=== PATIENT | male | born 1965 | race Hispanic/Latino ===

== ENCOUNTER 2019-02-27 22:05 | Inpatient (IN) | payer SELFPAY ==
--- NOTE | 2019-02-28 00:13 | XRay Report ---
PROCEDURE: XR CHEST ROUTINE 2V TECHNIQUE: PA and lateral chest radiographs were obtained. HISTORY: Chest Pain COMPARISONS: None. FINDINGS: Heart: Normal. Mediastinum/Vessels: Normal. Lungs/Pleural space: Normal. Bony thorax: No acute osseous abnormality. IMPRESSION: Normal examination. This document is electronically signed by Michael Verduzco MD., February 28 2019 12:11:21 AM ET
[2019-02-28 00:33] LABS: Basophils % (Auto) 0.4 % (0.0-1.8); Eosinophils # (Auto) 0.1 K/mm3 (0.0-0.4); Eosinophils % (Auto) 1.8 % (0.0-4.3); Hematocrit 34.5 % (35.5-45.6); Lymphocytes # (Auto) 1.5 K/mm3 (1.2-5.4); Lymphocytes % (Auto) 20.7 % (13.4-35.0); Mean Corpuscular HGB Conc 35 % (32-34); Mean Corpuscular Volume 92 fl (84-94); Monocytes # (Auto) 0.6 K/mm3 (0.0-0.8); Monocytes % (Auto) 8.3 % (0.0-7.3); Platelet Count 244 K/mm3 (140-440); Red Blood Count 3.74 M/mm3 (3.65-5.03); Red Cell Distribution Width 14.2 % (13.2-15.2)
[2019-02-28 00:47] LABS: BUN/Creatinine Ratio 15; Blood Urea Nitrogen 17 mg/dL (9-20); Calcium 8.6 mg/dL (8.4-10.2); Hemolysis Index 1
[2019-02-28] MEDS ORDERED: VANCOMYCIN PHARMACY TO DOSE IV SCH (06:37)
[2019-02-28] MEDS ORDERED: ZOSYN/NS 3.375GM/50ML 3.375 GM/50 ML BAG IV ONE (06:37)
[2019-02-28] MEDS ORDERED: ZOFRAN IV ONE (06:38)
[2019-02-28] MEDS ORDERED: MORPHINE IV ONE (06:38)
[2019-02-28] MEDS ORDERED: NACL 0.9% 1000 ML 1,000 ML IV ONE (06:44)
--- NOTE | 2019-02-28 07:29 | XRay Report ---
PROCEDURE: XR FOOT 2V LT TECHNIQUE: Left foot radiographs, AP and lateral views. HISTORY: ampullated toe swelling foot COMPARISONS: None . FINDINGS: There has been amputation of the second digit. There are no fractures or malalignments. There is mild soft tissue swelling of the forefoot. There is no subcutaneous air or foreign body. IMPRESSION: There has been amputation of the second digit. There are no fractures or malalignments. There is mild soft tissue swelling of the forefoot. This document is electronically signed by Michael Verduzco MD., February 28 2019 07:27:06 AM ET
[2019-02-28 07:36] LABS: INR 0.81 (0.87-1.13)
[2019-02-28 07:45] LABS: Alanine Aminotransferase 20 units/L (7-56); Albumin 3.8 g/dL (3.9-5)
[2019-02-28] MEDS ORDERED: VANCOMYCIN 1,500 MG in NACL 0.9% 500 ML 500 ML IV ONE (08:00)
[2019-02-28 08:01] LABS: Creatine Kinase MB 3.4 ng/mL (0.0-4.0)
[2019-02-28 08:12] LABS: Bilirubin,Direct < 0.2 mg/dL (0-0.2)
--- NOTE | 2019-02-28 09:35 | Emergency Department Report ---
ED General Adult HPI - General Chief complaint: Extremity Injury, Lower Stated complaint: LEFT FOOT SWELLING/CHEST PAIN/SOB Time Seen by Provider: 02/28/19 06:24 Source: patient, family Mode of arrival: Ambulatory Limitations: No Limitations - History of Present Illness Initial comments: This is a 53 year old man who states that he had a toe amputation in [place] less than 2 weeks ago. He states it was due to a gangrenous toe. He is here including [facility] staying with his sister. He states that he was given a short course of pain medicine and that he has run out of this. He states he has a diabetic neuropathy but on top of this his foot is now swollen and it is painful. He does not report fever or chills. Apparently he did make some mention of chest pain in triage but did not suspect that to me. He said chest pain was initially "exterior to my sternum" and then "it went deep like someone sitting on my chest" and then later it became a "trickle" and an area consistent with the left upper quadrant of his abdomen. States the pain is no longer present. It was not pleuritic. It was not associated with shortness of breath sweating or nausea. In general the patient is a bit hypomanic with pressurized speech. He is a poor historian. He tells me that he should "have 8 stents", 7 in both legs and one in his heart. When asked if he has had a heart catheterization in the past he does not seem to comprehend this. Apparently he has had a CT of his chest in the past at another facility. He has not been here before. He is a very poor historian. He states that he has had a [place] catheter in the past for intravenous antibiotic for a right index finger fracture. He is an insulin-dependent diabetic. He is not currently taking antibiotics. -: Gradual, days(s) Location: chest, left (foot) Radiation: non-radiation Quality: aching (see initial comments for description) Consistency: constant (foot pain is more constant), now resolved (chest pain is now resolved) Improves with: none Worsens with: none Associated Symptoms: denies other symptoms Treatments Prior to Arrival: none - Related Data Allergies Allergy/AdvReac Type Severity Reaction Status Date / Time No Known Allergies Allergy Verified 02/27/19 23:33 ED Review of Systems ROS: Stated complaint: LEFT FOOT SWELLING/CHEST PAIN/SOB Other details as noted in HPI Constitutional: denies: chills, fever Eyes: denies: eye pain, eye discharge, vision change ENT: denies: ear pain, throat pain Respiratory: denies: cough, shortness of breath, wheezing Cardiovascular: chest pain. denies: palpitations Endocrine: no symptoms reported Gastrointestinal: denies: abdominal pain, nausea, diarrhea Genitourinary: denies: urgency, dysuria Musculoskeletal: as per HPI. denies: back pain, joint swelling, arthralgia Skin: other (foot redness and swelling). denies: rash, lesions Neurological: denies: headache, weakness, paresthesias Psychiatric: denies: anxiety, depression Hematological/Lymphatic: denies: easy bleeding, easy bruising ED Past Medical Hx - Past Medical History Previous Medical History?: Yes Hx Hypertension: Yes Hx Diabetes: Yes Additional medical history: PAD, Pancreatitis, Neuropathy - Surgical History Past Surgical History?: Yes Additional Surgical History: Bilateral Inguinal Repair. - Social History Smoking Status: Current Every Day Smoker Substance Use Type: None ED Physical Exam - General Limitations: Other (possible psychiatric condition) General appearance: alert, in no apparent distress - Head Head exam: Present: atraumatic, normocephalic - Eye Eye exam: Present: normal appearance. Absent: scleral icterus - ENT ENT exam: Present: mucous membranes moist - Neck Neck exam: Present: normal inspection. Absent: tenderness, meningismus - Respiratory Respiratory exam: Present: normal lung sounds bilaterally. Absent: respiratory distress - Cardiovascular Cardiovascular Exam: Present: regular rate, normal rhythm. Absent: systolic murmur, diastolic murmur, rubs, gallop - GI/Abdominal GI/Abdominal exam: Present: soft, normal bowel sounds. Absent: distended, tenderness, guarding, rebound, rigid - Rectal Rectal exam: Present: deferred - Extremities Exam Extremities exam: Present: other (there is a healing surgical incision of the base of the first webspace at the previous amputation of the second toe side. There is a patch of erythema of the dorsum of the foot. There is 1+ swelling.) - Back Exam Back exam: Present: normal inspection - Neurological Exam Neurological exam: Present: alert, oriented X3, CN II-XII intact. Absent: motor sensory deficit - Psychiatric Psychiatric exam: Present: anxious, manic (hypomanic) - Skin Skin exam: Present: warm, dry, erythema. Absent: rash - Other Other exam information: Patient has poor peripheral pulses of both his legs. Both feet are warm. There is no signs of acute vascular compromise. ED Course Vital Signs 02/27/19 02/27/19 02/28/19 22:16 23:32 08:15 Temperature 98.6 F 98.6 F Pulse Rate 51 L 53 L Respiratory 18 18 Rate Blood Pressure 140/85 140/85 181/109 O2 Sat by Pulse 92 93 Oximetry 02/28/19 08:30 Temperature Pulse Rate Respiratory Rate Blood Pressure 159/96 O2 Sat by Pulse Oximetry - Reevaluation(s) Reevaluation #1: Patient was given analgesia. He was given empiric antibiotic coverage. Ultimately his blood pressure was noted to be 180/90. Nitrates were begun. He will be given aspirin. A d-dimer is yet pending. I am told that the patient's Doppler exam of his left lower extremity was negative. However, I do not have the report yet. I do not know if the arterial study is completed yet either. The patient was found to have a lactic acid level of 2.7. His foot x-ray chest x-ray showed no acute process. He was deemed appropriate for inpatient management with antibiotics, blood pressure management and further evaluation of his chest pain albeit atypical. His history is impossible to ascertain in terms of what his peripheral and possible coronary artery disease and anatomy is at this point. Further evaluation is pending. He has 2 negative troponins so far. 02/28/19 09:56 Reevaluation #2: The patient's heart score is 2. His GLORIA score is 0. 02/28/19 09:59 ED Medical Decision Making - Lab Data Result diagrams: 02/28/19 00:00 02/28/19 00:00 Laboratory Results - last 24 hr 02/28/19 02/28/19 02/28/19 00:00 00:00 02:25 WBC 7.0 RBC 3.74 Hgb 12.0 Hct 34.5 L MCV 92 MCH 32 MCHC 35 H RDW 14.2 Plt Count 244 Lymph % (Auto) 20.7 [place] % (Auto) 8.3 H Eos % (Auto) 1.8 Baso % (Auto) 0.4 Lymph # 1.5 [place] # 0.6 Eos # 0.1 Baso # 0.0 Seg Neutrophils % 68.8 Seg Neutrophils # 4.8 PT INR APTT D-Dimer Sodium 141 Potassium 4.5 Chloride 109.5 H Carbon Dioxide 20 L Anion Gap 16 BUN 17 Creatinine 1.1 Estimated GFR > 60 BUN/Creatinine Ratio 15 Glucose 72 L Lactic Acid Calcium 8.6 Magnesium Total Bilirubin Direct Bilirubin Indirect Bilirubin AST ALT Alkaline Phosphatase Total Creatine Kinase CK-MB (CK-2) CK-MB (CK-2) Rel Index Troponin T < 0.010 < 0.010 C-Reactive Protein Total Protein Albumin Albumin/Globulin Ratio 02/28/19 02/28/19 02/28/19 06:11 06:53 06:53 WBC RBC Hgb Hct MCV MCH MCHC RDW Plt Count Lymph % (Auto) [place] % (Auto) Eos % (Auto) Baso % (Auto) Lymph # [place] # Eos # Baso # Seg Neutrophils % Seg Neutrophils # PT 11.7 L INR 0.81 L APTT 30.0 D-Dimer Sodium Potassium Chloride Carbon Dioxide Anion Gap BUN Creatinine Estimated GFR BUN/Creatinine Ratio Glucose Lactic Acid Calcium Magnesium Total Bilirubin 0.20 Direct Bilirubin < 0.2 Indirect Bilirubin 0.0 AST 18 ALT 20 Alkaline Phosphatase 179 H Total Creatine Kinase CK-MB (CK-2) CK-MB (CK-2) Rel Index Troponin T < 0.010 C-Reactive Protein Total Protein 6.0 L Albumin 3.8 L Albumin/Globulin Ratio 1.7 02/28/19 02/28/19 02/28/19 06:53 06:53 06:53 WBC RBC Hgb Hct MCV MCH MCHC RDW Plt Count Lymph % (Auto) [place] % (Auto) Eos % (Auto) Baso % (Auto) Lymph # [place] # Eos # Baso # Seg Neutrophils % Seg Neutrophils # PT INR APTT D-Dimer Sodium Potassium Chloride Carbon Dioxide Anion Gap BUN Creatinine Estimated GFR BUN/Creatinine Ratio Glucose Lactic Acid 2.70 H* Calcium Magnesium 1.80 Total Bilirubin Direct Bilirubin Indirect Bilirubin AST ALT Alkaline Phosphatase Total Creatine Kinase 50 L CK-MB (CK-2) 3.4 CK-MB (CK-2) Rel Index 6.8 H Troponin T C-Reactive Protein 0.30 Total Protein Albumin Albumin/Globulin Ratio 02/28/19 06:53 WBC RBC Hgb Hct MCV MCH MCHC RDW Plt Count Lymph % (Auto) [place] % (Auto) Eos % (Auto) Baso % (Auto) Lymph # [place] # Eos # Baso # Seg Neutrophils % Seg Neutrophils # PT INR APTT D-Dimer 145.80 Sodium Potassium Chloride Carbon Dioxide Anion Gap BUN Creatinine Estimated GFR BUN/Creatinine Ratio Glucose Lactic Acid Calcium Magnesium Total Bilirubin Direct Bilirubin Indirect Bilirubin AST ALT Alkaline Phosphatase Total Creatine Kinase CK-MB (CK-2) CK-MB (CK-2) Rel Index Troponin T C-Reactive Protein Total Protein Albumin Albumin/Globulin Ratio - EKG Data -: EKG Interpreted by Me EKG shows normal: sinus rhythm Rate: normal - EKG Data Interpretation: no acute changes, LVH (consider LVH) - Radiology Data Radiology results: report reviewed (no acute process on foot or chest x-ray, Doppler reported to me as negative. Awaiting report.) Critical care attestation.: If time is entered above; I have spent that time in minutes in the direct care of this critically ill patient, excluding procedure time. ED Disposition Clinical Impression: Cellulitis of left foot, Elevated lactic acid level, Insulin dependent diabetes mellitus, Peripheral vascular disease, Uncontrolled hypertension Chest pain Qualifiers: Chest pain type: unspecified Qualified Code(s): R07.9 - Chest pain, unspecified Disposition: OP ADMIT IP TO THIS HOSP Is pt being admited?: Yes Does the pt Need Aspirin: Yes Condition: Stable Instructions: Diabetes Mellitus Type 2 in Adults (ED), Chest Pain (ED), Hypertension (ED) Referrals: PRIMARY CARE, [Primary Care Provider] - 3-5 Days Time of Disposition: 10:02
[2019-02-28] MEDS ORDERED: ASPIRIN PO ONE (10:02)
[2019-02-28] MEDS ORDERED: NITRO-BID 2% TP ONE (10:03)
--- NOTE | 2019-02-28 10:47 | Vascular Lab Report ---
PROCEDURE: VL VENOUS DUPLEX LE LT TECHNIQUE: Grayscale, color flow and spectral waveform images were obtained of left lower extremity. HISTORY: POST TOE AMPUTATION SWELLING PAIN FOOT LEG COMPARISON: None FINDINGS: There is no deep venous thrombosis seen in the left lower extremity. Flow is demonstrated by color flow and spectral waveform imaging. There is appropriate wall compression and augmentation. There is also no evidence for superficial venous thrombus. IMPRESSION: There is no evidence for DVT in left lower extremity. This document is electronically signed by Martha Aguirre MD., February 28 2019 10:46:05 AM ET
--- NOTE | 2019-02-28 11:05 | Vascular Lab Report ---
PROCEDURE: VL ARTERIAL DUPLEX LE LT TECHNIQUE: Arterial duplex Doppler ultrasound of left lower extremity. Grayscale, color flow and spe ctral waveform images were obtained. HISTORY: PVD foot and leg pain COMPARISON: None FINDINGS: There is phasic flow in the left lower extremity from common femoral artery to popliteal artery. Ther e is monophasic flow in the proximal aspect of left posterior tibial artery. Mid to distal posterior tibial artery is occluded. There is biphasic flow seen in left anterior tibial artery and dorsalis pe dis artery. IMPRESSION: No flow seen in the mid to distal left posterior tibial artery, likely occluded. This document is electronically signed by Martha Aguirre MD., February 28 2019 11:03:27 AM ET
[2019-02-28] MEDS ORDERED: ZOFRAN IV PRN (11:08)
[2019-02-28] MEDS ORDERED: PROVENTIL IH PRN (11:08)
[2019-02-28] MEDS ORDERED: SODIUM CHLORIDE FLUSH SYRINGE 10 ML IV PRN (11:08)
[2019-02-28] MEDS ORDERED: TYLENOL PO PRN (11:08)
--- NOTE | 2019-02-28 11:10 | History and Physical Report ---
History of Present Illness Date of admission: 02/28/19 11:02 Chief complaint: My foot hurts History of present illness: 53 YO Male with HTN, DM Complicated by Neuropathy, Nicotine Dependence, Pancreatitis, PVD S/P Toe amputation, S/P Stent Placement presents to ED for evaluation. Pt states that he has experienced pain in his left foot over the past 3 days with persistent symptoms over the same time frame. Pt also reports chest pain, but opon exam and interview the patient localizes his discomfort to the abdominal region, and denies chest pain at time of exam. Pt states that his foot pain has worsened since he ran out of his pain medication. Pt transported to [facility] ED via private vehicle. Pt seen and evaluated in ED and found to have LLE Cellulitis/Diabetic Foot. Pt denies fever, chills, CP, Palpitations, NVD, Trauma, BRBPR, productive cough, or recent ill contacts. Pt admitted to medical floor,and initiated on IV antibiotic therapy. No prior admissions for review. All listed medication reconciled once entered and corrected by nursing staff. Vascular surgery consulted in ED for PVD. Past History Past Medical History: hypertension Past Surgical History: hernia repair Medications and Allergies Allergies Allergy/AdvReac Type Severity Reaction Status Date / Time No Known Allergies Allergy Verified 02/27/19 23:33 Home Medications Medication Instructions Recorded Confirmed Last Taken Type Aspir-Low 81 mg PO DAILY 02/28/19 02/28/19 Unknown History AtorvaSTATin 40 mg PO HS 02/28/19 02/28/19 Unknown History Humalog Mix 75-25 Vial 50 units SUB-Q BID 02/28/19 02/28/19 Unknown History Lisinopril 20 mg PO DAILY 02/28/19 02/28/19 Unknown History Neurontin 300 mg PO TID 02/28/19 02/28/19 Unknown History OLANzapine (NF) 5 mg PO HS 02/28/19 02/28/19 Unknown History Omeprazole 40 mg PO DAILY 02/28/19 02/28/[address] 10,500 Unit Cap 10,500 unit PO TID 02/28/19 02/28/19 Unknown History amLODIPine 10 mg PO DAILY 02/28/19 02/28/19 Unknown History oxyCODONE /ACETAMINOPHEN 5 - 325 mg PO Q4HR PRN 02/28/19 02/28/19 Unknown History Active Meds: Active Medications Acetaminophen (Tylenol) 650 mg PO Q4H PRN PRN Reason: Pain MILD(1-3)/Fever >100.5/MARTINEZ Albuterol (Proventil) 2.5 mg IH Q4HRT PRN PRN Reason: Shortness Of Breath Famotidine (Pepcid) 20 mg PO BID [facility] Sodium Chloride (Nacl 0.9% 1000 Ml) 1,000 mls @ 125 mls/hr IV ONCE ONE Stop: 02/28/19 14:43 Last Admin: 02/28/19 08:17 Dose: 125 mls/hr Documented by: Vancomycin HCl (Vancomycin/Ns 1 Gm/250 Ml) 1 gm in 250 mls @ 250 mls/hr IV Q12H YAEL Ondansetron HCl (Zofran) 4 mg IV Q8H PRN PRN Reason: Nausea And Vomiting Oxycodone/Acetaminophen (Percocet 5/325) 1 tab PO Q6H PRN PRN Reason: Pain, Moderate (4-6) Sodium Chloride (Sodium Chloride Flush Syringe 10 Ml) 10 ml IV BID YAEL Sodium Chloride (Sodium Chloride Flush Syringe 10 Ml) 10 ml IV PRN PRN PRN Reason: LINE FLUSH Review of Systems Constitutional: no weight loss, no weight gain, no fever, no chills Ears, nose, mouth and throat: no ear pain, no ear discharge, no tinnitis, no decreased hearing, no nose pain, no nasal congestion Cardiovascular: no chest pain, no orthopnea, no palpitations, no rapid/irregular heart beat, no edema, no lightheadedness Respiratory: no cough, no cough with sputum, no excessive sputum, no hemoptysis, no shortness of breath Gastrointestinal: no nausea, no vomiting, no diarrhea, no constipation, no change in bowel habits, no BRBPR Genitourinary Male: no hematuria, no flank pain, no discharge, no urinary frequency, no urinary hesitancy, no nocturia Rectal: no pain, no incontinence, no bleeding Musculoskeletal: no neck stiffness, no shooting arm pain, no arm numbness/tingling Integumentary: no rash, no pruritis, no redness, no sores Neurological: no paralysis, no weakness, no tingling, no seizures, no syncope Psychiatric: no anxiety, no memory loss, no change in sleep habits, no insomnia, no change in appetite Endocrine: no cold intolerance, no heat intolerance, no excessive thirst, no polydipsia, no polyuria Hematologic/Lymphatic: no easy bruising, no easy bleeding, no lymphadenopathy Allergic/Immunologic: no persistent infections Exam - Constitutional Vitals: Temp Pulse Resp BP Pulse Ox 98.6 F 101 H 15 185/98 99 02/27/19 23:32 02/28/19 10:30 02/28/19 10:30 02/28/19 10:30 02/28/19 10:30 General appearance: Present: mild distress - EENT Eyes: Present: PERRL ENT: hearing intact, clear oral mucosa - Neck Neck: Present: supple, normal ROM - Respiratory Respiratory effort: normal Respiratory: bilateral: CTA - Cardiovascular Heart Sounds: Present: S1 & S2. Absent: rub, click - Extremities Extremities: pulses symmetrical, No edema Extremity abnormal: erythema, pulses diminished Peripheral Pulses: within normal limits - Abdominal General gastrointestinal: Present: soft, non-tender, non-distended, normal bowel sounds Male genitourinary: Present: normal - Integumentary Integumentary: Present: clear, warm, dry - Musculoskeletal Musculoskeletal: gait normal, strength equal bilaterally - Psychiatric Psychiatric: intact judgment & insight, no cooperative, agitated - Neurologic Neurologic: CNII-XII intact, moves all extremities, no gait normal Results - Labs CBC & Chem 7: 02/28/19 00:00 02/28/19 00:00 Labs: Abnormal lab results 02/28/19 02/28/19 02/28/19 Range/Units 00:00 00:00 06:53 Hct 34.5 L (35.5-45.6) % MCHC 35 H (32-34) % [place] % (Auto) 8.3 H (0.0-7.3) % PT 11.7 L (12.2-14.9) Sec. INR 0.81 L (0.87-1.13) Chloride 109.5 H (98-107) mmol/L Carbon Dioxide 20 L (22-30) mmol/L Glucose 72 L (75-100) mg/dL Lactic Acid (0.7-2.0) mmol/L Alkaline Phosphatase (35-129) units/L Total Creatine Kinase (55-170) units/L CK-MB (CK-2) Rel Index (0-4) Total Protein (6.3-8.2) g/dL Albumin (3.9-5) g/dL 02/28/19 02/28/19 02/28/19 Range/Units 06:53 06:53 06:53 Hct (35.5-45.6) % MCHC (32-34) % [place] % (Auto) (0.0-7.3) % PT (12.2-14.9) Sec. INR (0.87-1.13) Chloride (98-107) mmol/L Carbon Dioxide (22-30) mmol/L Glucose (75-100) mg/dL Lactic Acid 2.70 H* (0.7-2.0) mmol/L Alkaline Phosphatase 179 H (35-129) units/L Total Creatine Kinase 50 L (55-170) units/L CK-MB (CK-2) Rel Index 6.8 H (0-4) Total Protein 6.0 L (6.3-8.2) g/dL Albumin 3.8 L (3.9-5) g/dL 02/28/19 Range/Units 10:03 Hct (35.5-45.6) % MCHC (32-34) % [place] % (Auto) (0.0-7.3) % PT (12.2-14.9) Sec. INR (0.87-1.13) Chloride (98-107) mmol/L Carbon Dioxide (22-30) mmol/L Glucose (75-100) mg/dL Lactic Acid 2.40 H* (0.7-2.0) mmol/L Alkaline Phosphatase (35-129) units/L Total Creatine Kinase (55-170) units/L CK-MB (CK-2) Rel Index (0-4) Total Protein (6.3-8.2) g/dL Albumin (3.9-5) g/dL Assessment and Plan - Patient Problems (1) Cellulitis of left foot Current Visit: Yes Status: Acute Plan to address problem: Iv antibiotic therapy, would care consulted, Xray foot, blood cultures, CBC, CMP (2) HTN (hypertension) Current Visit: Yes Status: Acute Qualifiers: Hypertension type: essential hypertension Qualified Code(s): I10 - Essential (primary) hypertension Plan to address problem: monitor bp q shift, continue medical management. (3) Diabetes Current Visit: Yes Status: Acute Plan to address problem: ADA diet, insulin, accu check (4) Peripheral vascular disease Current Visit: Yes Status: Acute Plan to address problem: Vascular surgery consulted in ED, supportive care, Pt denies rest pain. (5) DVT prophylaxis Current Visit: Yes Status: Acute Plan to address problem: SCD to BLE while in bed, Prophylactic lovenox.
[2019-02-28] MEDS ORDERED: PERCOCET 5/325 ONE (12:00)
[2019-02-28] MEDS: PERCOCET 5/325 PO PRN ×3 (12:00→23:21)
[2019-02-28] MEDS: HumaLOG SUB-Q SCH ×2 (12:00→18:30)
[2019-02-28] MEDS: VANCOMYCIN/NS 1 GM/250 ML 1 GM/250 ML BAG IV SCH (18:30)
[2019-02-28] MEDS ORDERED: ACETAMINOPHEN PO PRN (21:15)
[2019-02-28] MEDS ORDERED: OXYCODONE PO PRN (21:15)
[2019-02-28] MEDS: PEPCID PO SCH (23:11)
[2019-02-28] MEDS: LOVENOX SUB-Q SCH (23:11)
[2019-02-28] MEDS: SODIUM CHLORIDE FLUSH SYRINGE 10 ML IV SCH (23:24)
[2019-03-01] MEDS: HumaLOG SUB-Q SCH ×4 (00:56→17:37)
[2019-03-01] MEDS: VANCOMYCIN/NS 1 GM/250 ML 1 GM/250 ML BAG IV SCH ×2 (05:27→18:01)
[2019-03-01] MEDS: PERCOCET 5/325 PO PRN ×5 (05:29→23:06)
[2019-03-01 06:05] LABS: Basophils % (Auto) 0.4 % (0.0-1.8); Eosinophils # (Auto) 0.1 K/mm3 (0.0-0.4); Eosinophils % (Auto) 1.1 % (0.0-4.3); Hematocrit 36.1 % (35.5-45.6); Hemoglobin 12.6 gm/dl (11.8-15.2); Lymphocytes # (Auto) 0.7 K/mm3 (1.2-5.4); Lymphocytes % (Auto) 10.8 % (13.4-35.0); Mean Corpuscular HGB Conc 35 % (32-34); Mean Corpuscular Volume 92 fl (84-94); Monocytes # (Auto) 0.5 K/mm3 (0.0-0.8); Monocytes % (Auto) 7.9 % (0.0-7.3); Platelet Count 195 K/mm3 (140-440); Red Blood Count 3.94 M/mm3 (3.65-5.03); Red Cell Distribution Width 13.7 % (13.2-15.2)
[2019-03-01] MEDS ORDERED: APRESOLINE IV PRN ×2 (06:10→09:13)
[2019-03-01] MEDS: D50W (25GM) Syringe IV PRN (06:28)
[2019-03-01 06:34] LABS: Alanine Aminotransferase 20 units/L (7-56); Albumin 3.6 g/dL (3.9-5); BUN/Creatinine Ratio 10; Blood Urea Nitrogen 8 mg/dL (9-20); Calcium 8.6 mg/dL (8.4-10.2); Hemolysis Index 13
[2019-03-01] MEDS: NEURONTIN PO SCH ×3 (08:53→20:42)
[2019-03-01] MEDS: PANCREAZE DR 10,500 UNIT PO SCH ×3 (08:54→18:01)
[2019-03-01] MEDS ORDERED: MORPHINE IV PRN (09:12)
[2019-03-01] MEDS: ZESTRIL PO SCH (09:30)
[2019-03-01] MEDS: HALFPRIN EC PO SCH (09:31)
[2019-03-01] MEDS: PEPCID PO SCH ×2 (09:32→22:52)
[2019-03-01] MEDS: NORVASC PO SCH (09:32)
[2019-03-01] MEDS: PROTONIX PO SCH (09:32)
[2019-03-01 09:53] LABS: Bilirubin,Urine NEG (Negative); Blood,Urine NEG (Negative); Color,Urine Straw (Yellow); Mucus,Urine FEW /HPF; Protein,Urine <15 mg/dL mg/dL (Negative); RBC,Urine < 1.0 /HPF (0.0-6.0); Urobilinogen,Urine < 2.0 mg/dL (<2.0); WBC,Urine < 1.0 /HPF (0.0-6.0)
[2019-03-01 10:05] LABS: Amphetamine Screen,Urine PRESUMPTIVE NEGATIVE; Benzodiazepines Screen,Urine PRESUMPTIVE NEGATIVE; Cannabinoid Screen,Urine PRESUMPTIVE NEGATIVE; Cocaine Screen,Urine PRESUMPTIVE NEGATIVE; Methadone Screen,Urine PRESUMPTIVE NEGATIVE; Opiate Screen,Urine PRESUMPTIVE NEGATIVE
--- NOTE | 2019-03-01 16:24 | Consultation ---
History of Present Illness - Reason for Consult Consult date: 03/01/19 diabetic foot infection Requesting physician: MYRON ADORNO - History of Present Illness 53 y/o male with history of DM with peripheral neuropathy, tobacco use, PVD s/p recent left 2nd toe amputation, s/p Stent placement; admitted on due to 3 day- history of left foot severe pain and edema. He ran out of his pain medication. Reports nausea and vomiting x 3-4. Reports mild abdominal pain diffusely. Denies diarrhea. In the ED, temp 98.6, HR 51, R 19, O2 sat 92%, BP 140/85. WBC 7, Hg 12, Plat 24 4. Creat 1.1. Lactate 2.7. CRP 0.3. UA neg. Blood culture 02/28/2019 no growth today. CXR showed no acute cardiopulmonary process. Left foot XR s/p 2nd toe amputation +forefoot soft tissue edema. Venous US no DVT. Art US no flow mid to distal left posterior tibial artery. Review of Systems: General: no fever, chills, nightsweats, unintentional weight change, or change in appetite Cutaneous: no rash, pruritus Head: no headaches or injury Eyes: no changes in vision, eye pain, double vision Ears: no ear pain, ear discharge, ringing or hearing loss Nose: no nose bleeding, stuffiness Mouth & throat: no bleeding gums, no horseness, no dental problems, or swollen glands Neck: no pain, node enlargement/lumps, tyroid enlargement or tenderness Respiratory: no cough, wheezing, sputum, hemoptysis, pleuritic chest pain Cardiovascular: no chest pain, leg edema, cyanosis, SCHAEFFER, orthopnea Musculoskeletal: +left foot pain and edema Gastrointestinal: no nausea, vomiting, hematemesis, diarrhea, constipation, melena, bright red blood in stools, fecal incontinence, jaundice Genitourinary/Reproductive: no frequent urination, dysuria, hematuria, incontinence Neurogical: no seizures, no headaches, no weakness, no paresthesias, no loss of speech or vision; no memory loss, no vertigo, no tremors, no numbness Psychiatric: stable mood; no excessive anxiety, sadness or moodiness Past History Past Medical History: hypertension Past Surgical History: hernia repair Medications and Allergies Allergies Allergy/AdvReac Type Severity Reaction Status Date / Time No Known Allergies Allergy Verified 02/27/19 23:33 Home Medications Medication Instructions Recorded Confirmed Last Taken Type Aspir-Low 81 mg PO DAILY 02/28/19 02/28/19 Unknown History AtorvaSTATin 40 mg PO HS 02/28/19 02/28/19 Unknown History Humalog Mix 75-25 Vial 50 units SUB-Q BID 02/28/19 02/28/19 Unknown History Lisinopril 20 mg PO DAILY 02/28/19 02/28/19 Unknown History Neurontin 300 mg PO TID 02/28/19 02/28/19 Unknown History OLANzapine (NF) 5 mg PO HS 02/28/19 02/28/19 Unknown History Omeprazole 40 mg PO DAILY 02/28/19 02/28/19 Unknown History Bob Wang 10,500 Unit Cap 10,500 unit PO TID 02/28/19 02/28/19 Unknown History amLODIPine 10 mg PO DAILY 02/28/19 02/28/19 Unknown History oxyCODONE /ACETAMINOPHEN 5 - 325 mg PO Q4HR PRN 02/28/19 02/28/19 Unknown History Active Meds: Active Medications Acetaminophen (Tylenol) 650 mg PO Q4H PRN PRN Reason: Pain MILD(1-3)/Fever >100.5/MARTINEZ Albuterol (Proventil) 2.5 mg IH Q4HRT PRN PRN Reason: Shortness Of Breath Amlodipine Besylate (Norvasc) 10 mg PO DAILY [facility] Last Admin: 03/01/19 09:32 Dose: 10 mg Documented by: Lipase/Protease/Amylase (Bob Wang 10,500 Unit) 1 each PO TIDAC [facility] Last Admin: 03/01/19 14:10 Dose: 1 each Documented by: Aspirin (Halfprin Ec) 81 mg PO DAILY [facility] Last Admin: 03/01/19 09:31 Dose: 81 mg Documented by: Atorvastatin Calcium (Lipitor) 40 mg PO HS [facility] Last Admin: 02/28/19 23:11 Dose: 40 mg Documented by: Dextrose (D50w (25gm) Syringe) 50 ml IV PRN PRN PRN Reason: Hypoglycemia Last Admin: 03/01/19 06:28 Dose: 50 ml Documented by: Enoxaparin Sodium (Lovenox) 40 mg SUB-Q QDAY@2200 [facility] Last Admin: 02/28/19 23:11 Dose: 40 mg Documented by: Famotidine (Pepcid) 20 mg PO BID [facility] Last Admin: 03/01/19 09:32 Dose: 20 mg Documented by: Gabapentin (Neurontin) 300 mg PO TID [facility] Last Admin: 03/01/19 14:10 Dose: 300 mg Documented by: Hydralazine HCl (Apresoline) 10 mg IV Q6H PRN PRN Reason: Hypertension Vancomycin HCl (Vancomycin/Ns 1 Gm/250 Ml) 1 gm in 250 mls @ 250 mls/hr IV Q12H [facility] Last Admin: 03/01/19 05:27 Dose: 250 mls/hr Documented by: Insulin Human Isoph/Insulin Regular (Humulin 70/30) 50 unit SUB-Q BID [facility] Last Admin: 03/01/19 09:34 Dose: 50 unit Documented by: Insulin Human Lispro (Humalog) 0 unit SUB-Q Q6HR [facility]; Protocol Last Admin: 03/01/19 14:05 Dose: Not Given Documented by: Lisinopril (Zestril) 20 mg PO DAILY [facility] Last Admin: 03/01/19 09:30 Dose: 20 mg Documented by: Morphine Sulfate (Morphine) 2 mg IV Q4H PRN PRN Reason: Pain, Moderate (4-6) Olanzapine (Zyprexa) 5 mg PO HS [facility] Last Admin: 02/28/19 23:23 Dose: 5 mg Documented by: Ondansetron HCl (Zofran) 4 mg IV Q8H PRN PRN Reason: Nausea And Vomiting Oxycodone/Acetaminophen (Percocet 5/325) 1 tab PO Q4H PRN PRN Reason: Pain, (7-10) Last Admin: 03/01/19 14:13 Dose: 1 tab Documented by: Pantoprazole Sodium (Protonix) 40 mg PO DAILY [facility] Last Admin: 03/01/19 09:32 Dose: 40 mg Documented by: Sodium Chloride (Sodium Chloride Flush Syringe 10 Ml) 10 ml IV BID [facility] Last Admin: 02/28/19 23:24 Dose: 10 ml Documented by: Sodium Chloride (Sodium Chloride Flush Syringe 10 Ml) 10 ml IV PRN PRN PRN Reason: LINE FLUSH Physical Examination - Physical Exam Narrative exam: General appearance: Alert in NAD, conversant Eyes: anicteric sclerae, moist conjunctivae; no lid-lag; PERRLA HENT: Atraumatic; oropharynx clear with moist mucous membranes and no mucosal ulcerations/no oral thrush; normal hard and soft palate. Normal external ears. Neck: Trachea midline; supple, no thyromegaly or lymphadenopathy Lungs: CTA, with normal respiratory effort and no intercostal retractions CV: RRR, no murmurs Abdomen: Soft, non-tender; no masses or hepatosplenomegaly Extremities: Left 2nd toe amputated wound with sutures no edema, no erythema or drainage. +mild foot edema Skin: Normal temperature, turgor and texture; no rash, ulcers or subcutaneous nodules Psych: Appropriate affect, alert and oriented to person, place and time. Neuro: alert and oriented x 3. Moving all extermities - Constitutional Vitals: Vital Signs Temp Pulse Resp BP Pulse Ox 98.3 F 98 H 20 155/101 98 03/01/19 11:52 03/01/19 11:52 03/01/19 11:52 03/01/19 11:52 03/01/19 11:52 Temperature -Last 24 Hours Temperature 98.3 F Temperature 99.5 F Temperature 97.8 F Temperature 98.0 F Temperature 98.1 F Results - Labs CBC & Chem 7: 03/01/19 05:23 03/01/19 05:23 Labs: Abnormal lab results 02/28/19 02/28/19 03/01/19 Range/Units 16:34 21:58 05:23 MCHC 35 H (32-34) % Lymph % (Auto) 10.8 L (13.4-35.0) % [place] % (Auto) 7.9 H (0.0-7.3) % Lymph # 0.7 L (1.2-5.4) K/mm3 Seg Neutrophils % 79.8 H (40.0-70.0) % BUN (9-20) mg/dL Glucose (75-100) mg/dL POC Glucose 222 H 162 H (70-105) Alkaline Phosphatase (35-129) units/L Total Protein (6.3-8.2) g/dL Albumin (3.9-5) g/dL 03/01/19 03/01/19 03/01/19 Range/Units 05:23 06:25 07:18 MCHC (32-34) % Lymph % (Auto) (13.4-35.0) % [place] % (Auto) (0.0-7.3) % Lymph # (1.2-5.4) K/mm3 Seg Neutrophils % (40.0-70.0) % BUN 8 L (9-20) mg/dL Glucose 46 L (75-100) mg/dL POC Glucose < 40 L 125 H (70-105) Alkaline Phosphatase 163 H (35-129) units/L Total Protein 5.7 L (6.3-8.2) g/dL Albumin 3.6 L (3.9-5) g/dL 03/01/19 Range/Units 11:56 MCHC (32-34) % Lymph % (Auto) (13.4-35.0) % [place] % (Auto) (0.0-7.3) % Lymph # (1.2-5.4) K/mm3 Seg Neutrophils % (40.0-70.0) % BUN (9-20) mg/dL Glucose (75-100) mg/dL POC Glucose 51 L (70-105) Alkaline Phosphatase (35-129) units/L Total Protein (6.3-8.2) g/dL Albumin (3.9-5) g/dL Assessment and Plan Cultures: Blood culture 02/28/19 no growth today Assessment: 53 y/o male with history of DM with peripheral neuropathy, tobacco use, PVD s/p recent left 2nd toe amputation, s/p Stent placemen 2weeks before admission; admitted on 02/27/19 due to 3 day-history of left foot severe pain and edema: - Elevated lactate: ?likely from limb ischemia? v/s less likely mild left foot cellulitis. Left foot XR s/p 2nd toe amputation +forefoot soft tissue edema. Venous US no DVT. Art US no flow mid to distal left posterior tibial artery. CRP low. - PVD s/p recent left 2nd toe amputation, s/p Stent placement Recommendations: - follow-up blood cultures - continue vancomycin will stop soon- no evidence of deep soft tissue infection - needs further revascularization per vascular - check MRSA PCR Will follow. Rebecca Garcia MD Infectious Diseases [employer] [facility] M [phone] O [phone]
--- NOTE | 2019-03-01 16:56 | Progress Note ---
Assessment and Plan Assessment and plan: 53 YO Male with HTN, DM Complicated by Neuropathy, Nicotine Dependence, Pancreatitis, PVD S/P Toe amputation, S/P Stent Placement presents to ED for evaluation. Pt states that he has experienced pain in his left foot over the past 3 days with persistent symptoms over the same time frame. Pt also reports chest pain, but opon exam and interview the patient localizes his discomfort to the abdominal region, and denies chest pain at time of exam. Pt states that his foot pain has worsened since he ran out of his pain medication. Pt transported to [facility] ED via private vehicle. Pt seen and evaluated in ED and found to have LLE Cellulitis/Diabetic Foot. Pt denies fever, chills, CP, Palpitations, NVD, Trauma , BRBPR, productive cough, or recent ill contacts. Pt admitted to medical floor,and initiated on IV antibiotic therapy. No prior admissions for review. All listed medication reconciled once entered and corrected by nursing staff. Vascular surgery consulted in ED for PVD. Left foot xray: IMPRESSION: There has been amputation of the second digit. There are no fractures or malalignments. There is mild soft tissue swelling of the forefoot. CXR: IMPRESSION: Normal examination. Katelyn doppler left lower ext: IMPRESSION: There is no evidence for DVT in left lower extremity. Sepsis Left foot Cellulitis PVD Diabetes Mellitus with poor glycemic control Hypoglycemia Hypertensive urgency Nicotine dependance s/p Left second toe amputation Plan Continue supportive care Antibiotics per ID IR/Vascular consult pending Continue pain control When necessary BP control. This could be likely secondary to pain and will improve with adequate pain control DVT and GI prophylaxis Level of care discussed with the patient's detail. History Interval history: Patient seen and examined this morning nursing staff reports patient with e levated blood pressure still complains of pain of her lower extremity. Denies any nausea vomiting or diarrhea. Denies any fever. Hospitalist Physical - Physical exam Narrative exam: VITAL SIGNS: Reviewed. GENERAL: The patient appeared well nourished and normally developed, otherwise in mild distress secondary to pain Vital signs as documented. HEAD: No signs of head trauma. EYES: Pupils are equal. Extraocular motions intact. EARS: Hearing grossly intact. MOUTH: Oropharynx is normal. NECK: No adenopathy, no JVD. CHEST: Chest with clear breath sounds bilaterally. No wheezes, rales, or rhonchi. CARDIAC: Regular rate and rhythm. S1 and S2, without murmurs, gallops, or rubs. VASCULAR: Foods with +1 Edema. Peripheral pulses normal and equal in all extremities. ABDOMEN: Soft, non tender and non distended. No rebound or guarding, and no masses palpated. Bowel Sounds normal. MUSCULOSKELETAL: Good range of motion of all major joints. Extremities without clubbing, mild stenosis noted around recent surgical sites. +1 pitting edema on the fluids. NEUROLOGIC EXAM: Alert and oriented x 3 No focal sensory or strength deficits. Speech normal. Follows commands. PSYCHIATRIC: Mood normal. SKIN: Second left toe amputation with erythema surrounded the area. No purulent drainage noted. - Constitutional Vitals: Temp Pulse Resp BP Pulse Ox 98.3 F 98 H 20 155/101 98 03/01/19 11:52 03/01/19 11:52 03/01/19 11:52 03/01/19 11:52 03/01/19 11:52 General appearance: Present: mild distress Results - Labs CBC & Chem 7: 03/01/19 05:23 03/01/19 05:23 Labs: Laboratory Last Values WBC 6.7 K/mm3 (4.5-11.0) 03/01/19 05:23 RBC 3.94 M/mm3 (3.65-5.03) 03/01/19 05:23 Hgb 12.6 gm/dl (11.8-15.2) 03/01/19 05:23 Hct 36.1 % (35.5-45.6) 03/01/19 05:23 MCV 92 fl (84-94) 03/01/19 05:23 MCH 32 pg (28-32) 03/01/19 05:23 MCHC 35 % (32-34) H 03/01/19 05:23 RDW 13.7 % (13.2-15.2) 03/01/19 05:23 Plt Count 195 K/mm3 (140-440) 03/01/19 05:23 Lymph % (Auto) 10.8 % (13.4-35.0) L 03/01/19 05:23 [place] % (Auto) 7.9 % (0.0-7.3) H 03/01/19 05:23 Eos % (Auto) 1.1 % (0.0-4.3) 03/01/19 05:23 Baso % (Auto) 0.4 % (0.0-1.8) 03/01/19 05:23 Lymph # 0.7 K/mm3 (1.2-5.4) L 03/01/19 05:23 [place] # 0.5 K/mm3 (0.0-0.8) 03/01/19 05:23 Eos # 0.1 K/mm3 (0.0-0.4) 03/01/19 05:23 Baso # 0.0 K/mm3 (0.0-0.1) 03/01/19 05:23 Seg Neutrophils % 79.8 % (40.0-70.0) H 03/01/19 05:23 Seg Neutrophils # 5.3 K/mm3 (1.8-7.7) 03/01/19 05:23 PT 11.7 Sec. (12.2-14.9) L 02/28/19 06:53 INR 0.81 (0.87-1.13) L 02/28/19 06:53 APTT 30.0 Sec. (24.2-36.6) 02/28/19 06:53 D-Dimer 145.80 ng/mlDDU (0-234) 02/28/19 06:53 Sodium 140 mmol/L (137-145) 03/01/19 05:23 Potassium 3.6 mmol/L (3.6-5.0) 03/01/19 05:23 Chloride 105.8 mmol/L (98-107) 03/01/19 05:23 Carbon Dioxide 23 mmol/L (22-30) 03/01/19 05:23 Anion Gap 15 mmol/L 03/01/19 05:23 BUN 8 mg/dL (9-20) L 03/01/19 05:23 Creatinine 0.8 mg/dL (0.8-1.5) 03/01/19 05:23 Estimated GFR > 60 ml/min 03/01/19 05:23 BUN/Creatinine Ratio 10 % 03/01/19 05:23 Glucose 46 mg/dL (75-100) L 03/01/19 05:23 POC Glucose 51 (70-105) L 03/01/19 11:56 Lactic Acid 1.00 mmol/L (0.7-2.0) 02/28/19 12:51 Calcium 8.6 mg/dL (8.4-10.2) 03/01/19 05:23 Magnesium 1.80 mg/dL (1.7-2.3) 02/28/19 06:53 Total Bilirubin 0.30 mg/dL (0.1-1.2) 03/01/19 05:23 Direct Bilirubin < 0.2 mg/dL (0-0.2) 02/28/19 06:53 Indirect Bilirubin 0.0 mg/dL 02/28/19 06:53 AST 26 units/L (5-40) 03/01/19 05:23 ALT 20 units/L (7-56) 03/01/19 05:23 Alkaline Phosphatase 163 units/L (35-129) H 03/01/19 05:23 Total Creatine Kinase 50 units/L (55-170) L 02/28/19 06:53 CK-MB (CK-2) 3.4 ng/mL (0.0-4.0) 02/28/19 06:53 CK-MB (CK-2) Rel Index 6.8 (0-4) H 02/28/19 06:53 Troponin T < 0.010 ng/mL (0.00-0.029) 02/28/19 06:11 C-Reactive Protein 0.30 mg/dL (0.00-1.30) 02/28/19 06:53 Total Protein 5.7 g/dL (6.3-8.2) L 03/01/19 05:23 Albumin 3.6 g/dL (3.9-5) L 03/01/19 05:23 Albumin/Globulin Ratio 1.7 % 03/01/19 05:23 Urine Color Straw (Yellow) 03/01/19 06:36 Urine Turbidity Clear (Clear) 03/01/19 06:36 Urine pH 5.0 (5.0-7.0) 03/01/19 06:36 Ur Specific [place] 1.006 (1.003-1.030) 03/01/19 06:36 Urine Protein <15 mg/dl mg/dL (Negative) 03/01/19 06:36 Urine Glucose (UA) Neg mg/dL (Negative) 03/01/19 06:36 Urine Ketones Neg mg/dL (Negative) 03/01/19 06:36 Urine Blood Neg (Negative) 03/01/19 06:36 Urine Nitrite Neg (Negative) 03/01/19 06:36 Urine Bilirubin Neg (Negative) 03/01/19 06:36 Urine Urobilinogen < 2.0 mg/dL (<2.0) 03/01/19 06:36 Ur Leukocyte Esterase Neg (Negative) 03/01/19 06:36 Urine WBC (Auto) < 1.0 /HPF (0.0-6.0) 03/01/19 06:36 Urine RBC (Auto) < 1.0 /HPF (0.0-6.0) 03/01/19 06:36 Urine Mucus Few /HPF 03/01/19 06:36 Urine Opiates Screen Presumptive negative 03/01/19 06:36 Urine Methadone Screen Presumptive negative 03/01/19 06:36 Ur Barbiturates Screen Presumptive negative 03/01/19 06:36 Ur Phencyclidine Scrn Presumptive negative 03/01/19 06:36 Ur Amphetamines Screen Presumptive negative 03/01/19 06:36 U Benzodiazepines Scrn Presumptive negative 03/01/19 06:36 Urine Cocaine Screen Presumptive negative 03/01/19 06:36 U Marijuana (THC) Screen Presumptive negative 03/01/19 06:36 Drugs of Abuse Note Disclamer 03/01/19 06:36 Active Medications - Current Medications Current Medications: Generic Name Dose Route Start Last Admin Trade Name Freq PRN Reason Stop Dose Admin Acetaminophen 650 mg 02/28/19 11:08 Tylenol PO Q4H PRN Pain MILD(1-3)/Fever >100.5/MARTINEZ Albuterol 2.5 mg 02/28/19 11:08 Proventil IH Q4HRT PRN Shortness Of Breath Amlodipine Besylate 10 mg 03/01/19 10:00 03/01/19 09:32 Norvasc PO 10 mg DAILY YAEL Administration Lipase/Protease/Amylase 1 each 03/01/19 07:30 03/01/19 14:[address] 10,500 Unit PO 1 each TIDAC YAEL Administration Aspirin 81 mg 03/01/19 10:00 03/01/19 09:31 Halfprin Ec PO 81 mg DAILY YAEL Administration Atorvastatin Calcium 40 mg 02/28/19 22:00 02/28/19 23:11 Lipitor PO 40 mg HS YAEL Administration Dextrose 50 ml 02/28/19 11:09 03/01/19 06:28 D50w (25gm) Syringe IV 50 ml PRN PRN Administration Hypoglycemia Enoxaparin Sodium 40 mg 02/28/19 22:00 02/28/19 23:11 Lovenox SUB-Q 40 mg QDAY@2200 YAEL Administration Famotidine 20 mg 02/28/19 22:00 03/01/19 09:32 Pepcid PO 20 mg BID YAEL Administration Gabapentin 300 mg 03/01/19 08:00 03/01/19 14:10 Neurontin PO 300 mg TID YAEL Administration Hydralazine HCl 10 mg 03/01/19 09:13 Apresoline IV Q6H PRN Hypertension Vancomycin HCl 1 gm in 250 mls @ 250 mls/hr 02/28/19 18:00 03/01/19 05:27 Vancomycin/Ns 1 Gm/250 Ml IV 250 mls/hr Q12H YAEL Administration Insulin Human Isoph/Insulin Regular 50 unit 02/28/19 22:00 03/01/19 09:34 Humulin 70/30 SUB-Q 50 unit BID YAEL Administration Insulin Human Lispro 0 unit 02/28/19 12:00 03/01/19 14:05 Humalog SUB-Q Not Given Q6HR [facility] Protocol Lisinopril 20 mg 03/01/19 10:00 03/01/19 09:30 Zestril PO 20 mg DAILY YAEL Administration Morphine Sulfate 2 mg 03/01/19 09:12 Morphine IV Q4H PRN Pain, Moderate (4-6) Olanzapine 5 mg 02/28/19 22:00 02/28/19 23:23 Zyprexa PO 5 mg HS YAEL Administration Ondansetron HCl 4 mg 02/28/19 11:08 Zofran IV Q8H PRN Nausea And Vomiting Oxycodone/Acetaminophen 1 tab 02/28/19 23:00 03/01/19 14:13 Percocet 5/325 PO 1 tab Q4H PRN Administration Pain, (7-10) Pantoprazole Sodium 40 mg 03/01/19 10:00 03/01/19 09:32 Protonix PO 40 mg DAILY YAEL Administration Sodium Chloride 10 ml 02/28/19 22:00 02/28/19 23:24 Sodium Chloride Flush Syringe 10 Ml IV 10 ml BID YAEL Administration Sodium Chloride 10 ml 02/28/19 11:08 Sodium Chloride Flush Syringe 10 Ml IV PRN PRN LINE FLUSH
--- NOTE | 2019-03-01 17:47 | Consultation ---
History of Present Illness - Reason for Consult Consult date: 03/01/19 Left foot pain Requesting physician: GISELLE KOO - History of Present Illness This pt is a 53yo WM admitted on 02/28/19 via the ER due to left foot pain. The pt is s/p a Left 2nd toe amputation by a Dr Warren (Gen Surgery) in [facility] ~2wks ago. He was recently diagnosed with Buerger's disease as an outpt by a Vascular specialist. He has a long history of tobacco use. He has "only smoked" 1.5 cigarettes in the last 2 weeks following the dx. He describes his foot pain as intolerable. It is a combination of both incisional and neuropathic in nature. Past History Past Medical History: hypertension, other (h/o peripheral neuropathy treated with high dose neurontin) Past Surgical History: hernia repair, Other (Left 2nd toe amputation) Social history: smoking Family history: no significant family history (none listed) Medications and Allergies Allergies Allergy/AdvReac Type Severity Reaction Status Date / Time No Known Allergies Allergy Verified 02/27/19 23:33 Home Medications Medication Instructions Recorded Confirmed Last Taken Type Aspir-Low 81 mg PO DAILY 02/28/19 02/28/19 Unknown History AtorvaSTATin 40 mg PO HS 02/28/19 02/28/19 Unknown History Humalog Mix 75-25 Vial 50 units SUB-Q BID 02/28/19 02/28/19 Unknown History Lisinopril 20 mg PO DAILY 02/28/19 02/28/19 Unknown History Neurontin 300 mg PO TID 02/28/19 02/28/19 Unknown History OLANzapine (NF) 5 mg PO HS 02/28/19 02/28/19 Unknown History Omeprazole 40 mg PO DAILY 02/28/19 02/28/[address] 10,500 Unit Cap 10,500 unit PO TID 02/28/19 02/28/19 Unknown History amLODIPine 10 mg PO DAILY 02/28/19 02/28/19 Unknown History oxyCODONE /ACETAMINOPHEN 5 - 325 mg PO Q4HR PRN 02/28/19 02/28/19 Unknown History Active Meds: Active Medications Acetaminophen (Tylenol) 650 mg PO Q4H PRN PRN Reason: Pain MILD(1-3)/Fever >100.5/MARTINEZ Albuterol (Proventil) 2.5 mg IH Q4HRT PRN PRN Reason: Shortness Of Breath Amlodipine Besylate (Norvasc) 10 mg PO DAILY [facility] Last Admin: 03/01/19 09:32 Dose: 10 mg Documented by: Lipase/Protease/Amylase (Bob Wang 10,500 Unit) 1 each PO TIDAC [facility] Last Admin: 03/01/19 14:10 Dose: 1 each Documented by: Aspirin (Halfprin Ec) 81 mg PO DAILY [facility] Last Admin: 03/01/19 09:31 Dose: 81 mg Documented by: Atorvastatin Calcium (Lipitor) 40 mg PO HS [facility] Last Admin: 02/28/19 23:11 Dose: 40 mg Documented by: Dextrose (D50w (25gm) Syringe) 50 ml IV PRN PRN PRN Reason: Hypoglycemia Last Admin: 03/01/19 06:28 Dose: 50 ml Documented by: Enoxaparin Sodium (Lovenox) 40 mg SUB-Q QDAY@2200 [facility] Last Admin: 02/28/19 23:11 Dose: 40 mg Documented by: Famotidine (Pepcid) 20 mg PO BID [facility] Last Admin: 03/01/19 09:32 Dose: 20 mg Documented by: Gabapentin (Neurontin) 300 mg PO TID [facility] Last Admin: 03/01/19 14:10 Dose: 300 mg Documented by: Hydralazine HCl (Apresoline) 10 mg IV Q6H PRN PRN Reason: Hypertension Vancomycin HCl (Vancomycin/Ns 1 Gm/250 Ml) 1 gm in 250 mls @ 250 mls/hr IV Q12H [facility] Last Admin: 03/01/19 05:27 Dose: 250 mls/hr Documented by: Insulin Human Isoph/Insulin Regular (Humulin 70/30) 30 unit SUB-Q BIDDIAB [facility] Insulin Human Lispro (Humalog) 0 unit SUB-Q Q6HR [facility]; Protocol Last Admin: 03/01/19 14:05 Dose: Not Given Documented by: Lisinopril (Zestril) 20 mg PO DAILY [facility] Last Admin: 03/01/19 09:30 Dose: 20 mg Documented by: Morphine Sulfate (Morphine) 2 mg IV Q4H PRN PRN Reason: Pain, Moderate (4-6) Olanzapine (Zyprexa) 5 mg PO HS [facility] Last Admin: 04/21/19 23:23 Dose: 5 mg Documented by: Ondansetron HCl (Zofran) 4 mg IV Q8H PRN PRN Reason: Nausea And Vomiting Oxycodone/Acetaminophen (Percocet 5/325) 1 tab PO Q4H PRN PRN Reason: Pain, (7-10) Last Admin: 03/01/19 14:13 Dose: 1 tab Documented by: Pantoprazole Sodium (Protonix) 40 mg PO DAILY [facility] Last Admin: 03/01/19 09:32 Dose: 40 mg Documented by: Sodium Chloride (Sodium Chloride Flush Syringe 10 Ml) 10 ml IV BID [facility] Last Admin: 02/28/19 23:24 Dose: 10 ml Documented by: Sodium Chloride (Sodium Chloride Flush Syringe 10 Ml) 10 ml IV PRN PRN PRN Reason: LINE FLUSH Review of Systems All systems: negative Exam - Constitutional Vitals: Temp Pulse Resp BP Pulse Ox 97.7 F 83 20 101/64 97 03/01/19 17:28 03/01/19 17:28 03/01/19 17:28 03/01/19 17:28 03/01/19 17:28 General appearance: Present: no acute distress, other (Multiple tattoos of his upper exts, chest, and abd) - EENT Eyes: Present: EOM intact ENT: hearing intact - Neck Neck: Present: supple - Respiratory Respiratory effort: normal - Extremities Extremities: normal temperature (He has an easily palpable DP on the left.), abnormal (He has an incision of his left 2nd toe closed with multiple single interupted nylon sutures. There is swelling and tenderness at the distal portion of the incision as it extends on to the sole of his foot. mild surrounding erythema. Pt could not tolerate compression to assess for a fluid collection. No drainage appreciated.) - Psychiatric Psychiatric: appropriate mood/affect, intact judgment & insight, cooperative - Neurologic Neurologic: other (long standing lower ext neuropathy) - Additional findings Additional findings: Results - Labs CBC & Chem 7: 03/01/19 05:23 03/01/19 05:23 Labs: Abnormal lab results 02/28/19 03/01/19 03/01/19 Range/Units 21:58 05:23 05:23 MCHC 35 H (32-34) % Lymph % (Auto) 10.8 L (13.4-35.0) % [place] % (Auto) 7.9 H (0.0-7.3) % Lymph # 0.7 L (1.2-5.4) K/mm3 Seg Neutrophils % 79.8 H (40.0-70.0) % BUN 8 L (9-20) mg/dL Glucose 46 L (75-100) mg/dL POC Glucose 162 H (70-105) Alkaline Phosphatase 163 H (35-129) units/L Total Protein 5.7 L (6.3-8.2) g/dL Albumin 3.6 L (3.9-5) g/dL 03/01/19 03/01/19 03/01/19 Range/Units 06:25 07:18 11:56 MCHC (32-34) % Lymph % (Auto) (13.4-35.0) % [place] % (Auto) (0.0-7.3) % Lymph # (1.2-5.4) K/mm3 Seg Neutrophils % (40.0-70.0) % BUN (9-20) mg/dL Glucose (75-100) mg/dL POC Glucose < 40 L 125 H 51 L (70-105) Alkaline Phosphatase (35-129) units/L Total Protein (6.3-8.2) g/dL Albumin (3.9-5) g/dL Assessment and Plan This pt was admitted via the ER due to left foot pain. He is s/p a left 2nd toe amputation ~2wks ago. ID has been consulted and he is on IV antibiotics. A vascular surgery consult was requested to further evaluate. He was recently diagnosed with buerger's disease as an outpt. He has cut down, but has not completely stopped smoking thus far. I stressed the importance of tobacco cessation with buerger's disease. He states understanding. An arterial duplex at [facility], suggest a possible left H[employer] DRAFTER occlusion. He had a recent CTA as an outpt at [facility], earlier this month. He had the disc with him, and we have reviewed it. This appears to show bilateral common iliac artery stenosis (left worse than right). He needs this repaired (possible kissing stents). This does not necessarily have to be completed as an inpt. Continue to treat his local infection, pt could follow up with his previous vascular specialist, or our office after discharge once his infection is resolved. - Patient Problems (1) Atherosclerosis of [place] arteries of the extremities with ulceration Current Visit: Yes Status: Acute (2) Insulin dependent diabetes mellitus Current Visit: Yes Status: Acute (3) Diabetic neuropathy Current Visit: Yes Status: Acute
[2019-03-01] MEDS: SODIUM CHLORIDE FLUSH SYRINGE 10 ML IV SCH ×2 (18:03→22:54)
[2019-03-01] MEDS: LOVENOX SUB-Q SCH (22:52)
[2019-03-02] MEDS: HumaLOG SUB-Q SCH ×4 (00:03→17:33)
[2019-03-02] MEDS: D50W (25GM) Syringe IV PRN (01:45)
[2019-03-02] MEDS: VANCOMYCIN/NS 1 GM/250 ML 1 GM/250 ML BAG IV SCH (05:25)
[2019-03-02] MEDS: PANCREAZE DR 10,500 UNIT PO SCH ×3 (08:47→17:30)
[2019-03-02] MEDS: NEURONTIN PO SCH ×3 (08:47→20:27)
[2019-03-02] MEDS: PERCOCET 5/325 PO PRN ×4 (09:01→22:26)
[2019-03-02] MEDS: PROTONIX PO SCH (09:07)
[2019-03-02] MEDS: HALFPRIN EC PO SCH (09:07)
[2019-03-02] MEDS: NORVASC PO SCH (09:07)
[2019-03-02] MEDS: ZESTRIL PO SCH (09:08)
--- NOTE | 2019-03-02 09:16 | Progress Note ---
Assessment and Plan Cultures: Blood culture 02/28/19 no growth today Assessment: 53 y/o male with history of DM with peripheral neuropathy, tobacco use, PVD s/p recent left 2nd toe amputation, s/p Stent placemen 2weeks before admission; admitted on 02/27/19 due to 3 day-history of left foot severe pain and edema: - Elevated lactate: Resolved, ?likely from limb ischemia? v/s less likely mild left foot cellulitis. Left foot XR s/p 2nd toe amputation +forefoot soft tissue edema. Venous US no DVT. Art US no flow mid to distal left posterior tibial artery. CRP low. - PVD s/p recent left 2nd toe amputation, s/p Stent placement Recommendations: - follow-up blood cultures - discontinue vancomycin no evidence of deep soft tissue infection -Start Keflex 500mg PO QID and Doxycycline 100mg PO BID for total 7 days ending 03-06-19 - needs further revascularization per vascular - f/u MRSA PCR - ordered not collected d/w Dr. Luiz Fermin, [employer] [facility] M: [phone] O:[phone] Subjective Date of service: 03/02/19 Interval history: Patient seen and examined. Continues to have left foot pain. No fevers or SOB. Objective - Exam Narrative Exam: General appearance: Alert in NAD, conversant Eyes: anicteric sclerae, moist conjunctivae; no lid-lag; PERRLA HENT: Atraumatic; oropharynx clear with moist mucous membranes and no mucosal ulcerations/no oral thrush; normal hard and soft palate. Normal external ears. Neck: Trachea midline; supple, no thyromegaly or lymphadenopathy Lungs: CTA, with normal respiratory effort and no intercostal retractions CV: RRR, no murmurs Abdomen: Soft, non-tender; no masses or hepatosplenomegaly Extremities: Left 2nd toe amputated wound with sutures no edema, no erythema or drainage. +left foot pain and edema Skin: Normal temperature, turgor and texture; no rash, ulcers or subcutaneous nodules Psych: Appropriate affect, alert and oriented to person, place and time. Neuro: alert and oriented x 3. Moving all extermities - Constitutional Vitals: Vital Signs Temp Pulse Resp BP Pulse Ox 98.2 F 88 15 118/72 96 03/02/19 04:19 03/02/19 04:19 03/02/19 06:24 03/02/19 09:08 03/02/19 04:19 Temperature -Last 24 Hours Temperature 98.2 F Temperature 98.0 F Temperature 97.7 F Temperature 98.3 F - Labs CBC & Chem 7: 03/01/19 05:23 03/01/19 05:23 Labs: Abnormal lab results 03/01/19 03/01/19 03/01/19 Range/Units 07:18 11:56 22:07 POC Glucose 125 H 51 L 48 L (70-105) 03/02/19 03/02/19 Range/Units 01:36 05:55 POC Glucose 41 L 165 H (70-105)
--- NOTE | 2019-03-02 09:28 | Progress Note ---
Assessment and Plan Discussed findings on previous CTA with pt. Recommend he f/u as outpt for Angiogram and possible intervention once his infectious status has resolved. Pt lives in [place], and would prefer to f/u in our office instead of vascular surgeon in [place]. ID w/u in progress. Abx per there recommendation. - Patient Problems (1) Atherosclerosis of [place] arteries of the extremities with ulceration Current Visit: Yes Status: Acute (2) Insulin dependent diabetes mellitus Current Visit: Yes Status: Acute (3) Diabetic neuropathy Current Visit: Yes Status: Acute Subjective Date of service: 03/02/19 Interval history: Pt awake and alert without new complaint. Objective - Constitutional Vitals: Vital Signs - 12hr 03/01/19 03/01/19 03/01/19 22:00 22:08 23:06 Temperature 98.0 F Pulse Rate 95 H Respiratory 18 18 18 Rate Blood Pressure 120/78 O2 Sat by Pulse 98 98 Oximetry 03/02/19 03/02/19 03/02/19 00:06 04:19 05:54 Temperature 98.2 F Pulse Rate 88 Respiratory 18 20 18 Rate Blood Pressure 106/69 O2 Sat by Pulse 96 Oximetry 03/02/19 03/02/19 03/02/19 06:24 09:07 09:08 Temperature Pulse Rate Respiratory 15 Rate Blood Pressure 118/72 118/72 O2 Sat by Pulse Oximetry General appearance: Present: no acute distress - EENT Eyes: EOM intact ENT: hearing intact - Neck Neck: supple - Respiratory Respiratory effort: normal Extremities: normal temperature Extremity abnormal: other (incision intact tender, but without drainage) - Neurologic Neurologic: no focal deficits - Psychiatric Psychiatric: appropriate mood/affect, intact judgment & insight, cooperative - Labs CBC & Chem 7: 03/01/19 05:23 03/01/19 05:23 Labs: Abnormal lab results 03/01/19 03/01/19 03/01/19 Range/Units 07:18 11:56 22:07 POC Glucose 125 H 51 L 48 L (70-105) 03/02/19 03/02/19 Range/Units 01:36 05:55 POC Glucose 41 L 165 H (70-105) Medications & Allergies - Medications Allergies/Adverse Reactions: Allergies No Known Allergies Allergy (Verified 02/27/19 23:33) Home Medications: Home Medications Medication Instructions Recorded Confirmed Last Taken Type Aspir-Low 81 mg PO DAILY 02/28/19 02/28/19 Unknown History AtorvaSTATin 40 mg PO HS 02/28/19 02/28/19 Unknown History Humalog Mix 75-25 Vial 50 units SUB-Q BID 02/28/19 02/28/19 Unknown History Lisinopril 20 mg PO DAILY 02/28/19 02/28/19 Unknown History Neurontin 300 mg PO TID 02/28/19 02/28/19 Unknown History OLANzapine (NF) 5 mg PO HS 02/28/19 02/28/19 Unknown History Omeprazole 40 mg PO DAILY 02/28/19 02/28/19 Unknown History Bob Wang 10,500 Unit Cap 10,500 unit PO TID 02/28/19 02/28/19 Unknown History amLODIPine 10 mg PO DAILY 02/28/19 02/28/19 Unknown History oxyCODONE /ACETAMINOPHEN 5 - 325 mg PO Q4HR PRN 02/28/19 02/28/19 Unknown History Active Medications: Generic Name Dose Route Start Last Admin Trade Name Sergioq PRN Reason Stop Dose Admin Acetaminophen 650 mg 02/28/19 11:08 Tylenol PO Q4H PRN Pain MILD(1-3)/Fever >100.5/MARTINEZ Albuterol 2.5 mg 02/28/19 11:08 Proventil IH Q4HRT PRN Shortness Of Breath Amlodipine Besylate 10 mg 03/01/19 10:00 03/02/19 09:07 Norvasc PO 10 mg DAILY YAEL Administration Lipase/Protease/Amylase 1 each 03/01/19 07:30 03/02/19 08:47 Bob Wang 10,500 Unit PO 1 each TIDAC YAEL Administration Aspirin 81 mg 03/01/19 10:00 03/02/19 09:07 Halfprin Ec PO 81 mg DAILY YAEL Administration Atorvastatin Calcium 40 mg 02/28/19 22:00 03/01/19 22:52 Lipitor PO 40 mg HS YAEL Administration Dextrose 50 ml 02/28/19 11:09 03/02/19 01:45 D50w (25gm) Syringe IV 50 ml PRN PRN Administration Hypoglycemia Enoxaparin Sodium 40 mg 02/28/19 22:00 03/01/19 22:52 Lovenox SUB-Q 40 mg QDAY@2200 YAEL Administration Famotidine 20 mg 02/28/19 22:00 03/01/19 22:52 Pepcid PO 20 mg BID YAEL Administration Gabapentin 300 mg 03/01/19 08:00 03/02/19 08:47 Neurontin PO 300 mg TID YAEL Administration Hydralazine HCl 10 mg 03/01/19 09:13 Apresoline IV Q6H PRN Hypertension Vancomycin HCl 1 gm in 250 mls @ 250 mls/hr 02/28/19 18:00 03/02/19 05:25 Vancomycin/Ns 1 Gm/250 Ml IV 250 mls/hr Q12H YAEL Administration Insulin Human Isoph/Insulin Regular 20 unit 03/02/19 09:00 Humulin 70/30 SUB-Q BIDDIAB YAEL Insulin Human Lispro 0 unit 02/28/19 12:00 03/02/19 06:04 Humalog SUB-Q 1 unit Q6HR YAEL Administration Protocol Lisinopril 20 mg 03/01/19 10:00 03/02/19 09:08 Zestril PO 20 mg DAILY YAEL Administration Morphine Sulfate 2 mg 03/01/19 09:12 03/02/19 05:54 Morphine IV 2 mg Q4H PRN Administration Pain, Moderate (4-6) Olanzapine 5 mg 02/28/19 22:00 03/01/19 22:52 Zyprexa PO 5 mg HS YAEL Administration Ondansetron HCl 4 mg 02/28/19 11:08 Zofran IV Q8H PRN Nausea And Vomiting Oxycodone/Acetaminophen 1 tab 02/28/19 23:00 03/02/19 09:01 Percocet 5/325 PO 1 tab Q4H PRN Administration Pain, (7-10) Pantoprazole Sodium 40 mg 03/01/19 10:00 03/02/19 09:07 Protonix PO 40 mg DAILY YAEL Administration Sodium Chloride 10 ml 02/28/19 22:00 03/01/19 22:54 Sodium Chloride Flush Syringe 10 Ml IV 10 ml BID YAEL Administration Sodium Chloride 10 ml 02/28/19 11:08 Sodium Chloride Flush Syringe 10 Ml IV PRN PRN LINE FLUSH
[2019-03-02] MEDS: SODIUM CHLORIDE FLUSH SYRINGE 10 ML IV SCH ×2 (09:55→22:26)
[2019-03-02] MEDS: PEPCID PO SCH ×2 (09:58→22:25)
--- NOTE | 2019-03-02 11:31 | Progress Note ---
Assessment and Plan Assessment and plan: 53 YO Male with HTN, DM Complicated by Neuropathy, Nicotine Dependence, Pancreatitis, PVD S/P Toe amputation, S/P Stent Placement presents to ED for evaluation. Pt states that he has experienced pain in his left foot over the past 3 days with persistent symptoms over the same time frame. Pt also reports chest pain, but opon exam and interview the patient localizes his discomfort to the abdominal region, and denies chest pain at time of exam. Pt states that his foot pain has worsened since he ran out of his pain medication. Pt transported to [facility] ED via private vehicle. Pt seen and evaluated in ED and found to have LLE Cellulitis/Diabetic Foot. Pt denies fever, chills, CP, Palpitations, NVD, Trauma , BRBPR, productive cough, or recent ill contacts. Pt admitted to medical floor,and initiated on IV antibiotic therapy. No prior admissions for review. All listed medication reconciled once entered and corrected by nursing staff. Vascular surgery consulted in ED for PVD. Left foot xray: IMPRESSION: There has been amputation of the second digit. There are no fractures or malalignments. There is mild soft tissue swelling of the forefoot. CXR: IMPRESSION: Normal examination. Katelyn doppler left lower ext: IMPRESSION: There is no evidence for DVT in left lower extremity. Sepsis Left foot Cellulitis PVD Diabetes Mellitus with poor glycemic control Hypoglycemia Hypertensive urgency Nicotine dependance s/p Left second toe amputation Plan Continue supportive care ID and Vasc surg following Decrease dose of Insulin. Give Novolin 70/30 10 units bid Continue pain control When necessary BP control. DVT and GI prophylaxis Level of care discussed with the patient in detail. History Interval history: Pain left foot Hospitalist Physical - Physical exam Narrative exam: Gen: Not in acute distress, lying in bed HEENT: Normocephalic, atraumatic Neck: supple, no JVD Heart: S1 and S2 reg, no murmurs, rubs or gallop Lungs: Clear, no crackles Abd: soft, non tender, non distended, normal BS Ext: s/p left 2nd toe amputation, sutures present, erythema, swelling in area, no clubbing, no cyanosis, Neuro: AAO x 3, no focal signs, moves all ext Psych:Normal mood - Constitutional Vitals: Temp Pulse Resp BP Pulse Ox 98.2 F 88 15 118/72 96 03/02/19 04:19 03/02/19 04:19 03/02/19 06:24 03/02/19 09:08 03/02/19 04:19 General appearance: Present: no acute distress Results - Labs CBC & Chem 7: 03/01/19 05:23 03/01/19 05:23 Labs: Laboratory Last Values WBC 6.7 K/mm3 (4.5-11.0) 03/01/19 05:23 RBC 3.94 M/mm3 (3.65-5.03) 03/01/19 05:23 Hgb 12.6 gm/dl (11.8-15.2) 03/01/19 05:23 Hct 36.1 % (35.5-45.6) 03/01/19 05:23 MCV 92 fl (84-94) 03/01/19 05:23 MCH 32 pg (28-32) 03/01/19 05:23 MCHC 35 % (32-34) H 03/01/19 05:23 RDW 13.7 % (13.2-15.2) 03/01/19 05:23 Plt Count 195 K/mm3 (140-440) 03/01/19 05:23 Lymph % (Auto) 10.8 % (13.4-35.0) L 03/01/19 05:23 [place] % (Auto) 7.9 % (0.0-7.3) H 03/01/19 05:23 Eos % (Auto) 1.1 % (0.0-4.3) 03/01/19 05:23 Baso % (Auto) 0.4 % (0.0-1.8) 03/01/19 05:23 Lymph # 0.7 K/mm3 (1.2-5.4) L 03/01/19 05:23 [place] # 0.5 K/mm3 (0.0-0.8) 03/01/19 05:23 Eos # 0.1 K/mm3 (0.0-0.4) 03/01/19 05:23 Baso # 0.0 K/mm3 (0.0-0.1) 03/01/19 05:23 Seg Neutrophils % 79.8 % (40.0-70.0) H 03/01/19 05:23 Seg Neutrophils # 5.3 K/mm3 (1.8-7.7) 03/01/19 05:23 PT 11.7 Sec. (12.2-14.9) L 02/28/19 06:53 INR 0.81 (0.87-1.13) L 02/28/19 06:53 APTT 30.0 Sec. (24.2-36.6) 02/28/19 06:53 D-Dimer 145.80 ng/mlDDU (0-234) 02/28/19 06:53 Sodium 140 mmol/L (137-145) 03/01/19 05:23 Potassium 3.6 mmol/L (3.6-5.0) 03/01/19 05:23 Chloride 105.8 mmol/L (98-107) 03/01/19 05:23 Carbon Dioxide 23 mmol/L (22-30) 03/01/19 05:23 Anion Gap 15 mmol/L 03/01/19 05:23 BUN 8 mg/dL (9-20) L 03/01/19 05:23 Creatinine 0.8 mg/dL (0.8-1.5) 03/01/19 05:23 Estimated GFR > 60 ml/min 03/01/19 05:23 BUN/Creatinine Ratio 10 % 03/01/19 05:23 Glucose 46 mg/dL (75-100) L 03/01/19 05:23 POC Glucose 95 (70-105) 03/02/19 08:14 Hemoglobin A1c 11.1 % (4-6) H 03/01/19 05:23 Lactic Acid 1.00 mmol/L (0.7-2.0) 02/28/19 12:51 Calcium 8.6 mg/dL (8.4-10.2) 03/01/19 05:23 Magnesium 1.80 mg/dL (1.7-2.3) 02/28/19 06:53 Total Bilirubin 0.30 mg/dL (0.1-1.2) 03/01/19 05:23 Direct Bilirubin < 0.2 mg/dL (0-0.2) 02/28/19 06:53 Indirect Bilirubin 0.0 mg/dL 02/28/19 06:53 AST 26 units/L (5-40) 03/01/19 05:23 ALT 20 units/L (7-56) 03/01/19 05:23 Alkaline Phosphatase 163 units/L (35-129) H 03/01/19 05:23 Total Creatine Kinase 50 units/L (55-170) L 02/28/19 06:53 CK-MB (CK-2) 3.4 ng/mL (0.0-4.0) 02/28/19 06:53 CK-MB (CK-2) Rel Index 6.8 (0-4) H 02/28/19 06:53 Troponin T < 0.010 ng/mL (0.00-0.029) 02/28/19 06:11 C-Reactive Protein 0.30 mg/dL (0.00-1.30) 02/28/19 06:53 Total Protein 5.7 g/dL (6.3-8.2) L 03/01/19 05:23 Albumin 3.6 g/dL (3.9-5) L 03/01/19 05:23 Albumin/Globulin Ratio 1.7 % 03/01/19 05:23 Urine Color Straw (Yellow) 03/01/19 06:36 Urine Turbidity Clear (Clear) 03/01/19 06:36 Urine pH 5.0 (5.0-7.0) 03/01/19 06:36 Ur Specific [place] 1.006 (1.003-1.030) 03/01/19 06:36 Urine Protein <15 mg/dl mg/dL (Negative) 03/01/19 06:36 Urine Glucose (UA) Neg mg/dL (Negative) 03/01/19 06:36 Urine Ketones Neg mg/dL (Negative) 03/01/19 06:36 Urine Blood Neg (Negative) 03/01/19 06:36 Urine Nitrite Neg (Negative) 03/01/19 06:36 Urine Bilirubin Neg (Negative) 03/01/19 06:36 Urine Urobilinogen < 2.0 mg/dL (<2.0) 03/01/19 06:36 Ur Leukocyte Esterase Neg (Negative) 03/01/19 06:36 Urine WBC (Auto) < 1.0 /HPF (0.0-6.0) 03/01/19 06:36 Urine RBC (Auto) < 1.0 /HPF (0.0-6.0) 03/01/19 06:36 Urine Mucus Few /HPF 03/01/19 06:36 Urine Opiates Screen Presumptive negative 03/01/19 06:36 Urine Methadone Screen Presumptive negative 03/01/19 06:36 Ur Barbiturates Screen Presumptive negative 03/01/19 06:36 Ur Phencyclidine Scrn Presumptive negative 03/01/19 06:36 Ur Amphetamines Screen Presumptive negative 03/01/19 06:36 U Benzodiazepines Scrn Presumptive negative 03/01/19 06:36 Urine Cocaine Screen Presumptive negative 03/01/19 06:36 U Marijuana (THC) Screen Presumptive negative 03/01/19 06:36 Drugs of Abuse Note Disclamer 03/01/19 06:36 Active Medications - Current Medications Current Medications: Generic Name Dose Route Start Last Admin Trade Name Freq PRN Reason Stop Dose Admin Acetaminophen 650 mg 02/28/19 11:08 Tylenol PO Q4H PRN Pain MILD(1-3)/Fever >100.5/MARTINEZ Albuterol 2.5 mg 02/28/19 11:08 Proventil IH Q4HRT PRN Shortness Of Breath Amlodipine Besylate 10 mg 03/01/19 10:00 03/02/19 09:07 Norvasc PO 10 mg DAILY YAEL Administration Lipase/Protease/Amylase 1 each 03/01/19 07:30 03/02/19 08:[address] 10,500 Unit PO 1 each TIDAC YAEL Administration Aspirin 81 mg 03/01/19 10:00 03/02/19 09:07 Halfprin Ec PO 81 mg DAILY YAEL Administration Atorvastatin Calcium 40 mg 02/28/19 22:00 03/01/19 22:52 Lipitor PO 40 mg HS YAEL Administration Dextrose 50 ml 02/28/19 11:09 03/02/19 01:45 D50w (25gm) Syringe IV 50 ml PRN PRN Administration Hypoglycemia Enoxaparin Sodium 40 mg 02/28/19 22:00 03/01/19 22:52 Lovenox SUB-Q 40 mg QDAY@2200 YAEL Administration Famotidine 20 mg 02/28/19 22:00 03/02/19 09:58 Pepcid PO 20 mg BID YAEL Administration Gabapentin 300 mg 03/01/19 08:00 03/02/19 08:47 Neurontin PO 300 mg TID YAEL Administration Hydralazine HCl 10 mg 03/01/19 09:13 Apresoline IV Q6H PRN Hypertension Vancomycin HCl 1 gm in 250 mls @ 250 mls/hr 02/28/19 18:00 03/02/19 05:25 Vancomycin/Ns 1 Gm/250 Ml IV 250 mls/hr Q12H YAEL Administration Insulin Human Isoph/Insulin Regular 20 unit 03/02/19 09:00 03/02/19 09:54 Humulin 70/30 SUB-Q 20 unit BIDDIAB YAEL Administration Insulin Human Lispro 0 unit 02/28/19 12:00 03/02/19 06:04 Humalog SUB-Q 1 unit Q6HR YAEL Administration Protocol Lisinopril 20 mg 03/01/19 10:00 03/02/19 09:08 Zestril PO 20 mg DAILY YAEL Administration Morphine Sulfate 2 mg 03/01/19 09:12 03/02/19 05:54 Morphine IV 2 mg Q4H PRN Administration Pain, Moderate (4-6) Olanzapine 5 mg 02/28/19 22:00 03/01/19 22:52 Zyprexa PO 5 mg HS YAEL Administration Ondansetron HCl 4 mg 02/28/19 11:08 Zofran IV Q8H PRN Nausea And Vomiting Oxycodone/Acetaminophen 1 tab 02/28/19 23:00 03/02/19 09:01 Percocet 5/325 PO 1 tab Q4H PRN Administration Pain, (7-10) Pantoprazole Sodium 40 mg 03/01/19 10:00 03/02/19 09:07 Protonix PO 40 mg DAILY YAEL Administration Sodium Chloride 10 ml 02/28/19 22:00 03/02/19 09:55 Sodium Chloride Flush Syringe 10 Ml IV 10 ml BID YAEL Administration Sodium Chloride 10 ml 02/28/19 11:08 Sodium Chloride Flush Syringe 10 Ml IV PRN PRN LINE FLUSH
[2019-03-02] MEDS: KEFLEX PO SCH ×2 (12:18→17:30)
[2019-03-02] MEDS: VIBRAMYCIN PO SCH ×2 (12:18→22:25)
[2019-03-02] MEDS: LOVENOX SUB-Q SCH (22:25)
[2019-03-03] MEDS: KEFLEX PO SCH ×4 (00:28→18:26)
[2019-03-03] MEDS: HumaLOG SUB-Q SCH ×4 (00:28→18:25)
[2019-03-03] MEDS: PERCOCET 5/325 PO PRN ×4 (03:13→18:30)
[2019-03-03] MEDS: HALFPRIN EC PO SCH (09:13)
[2019-03-03] MEDS: PANCREAZE DR 10,500 UNIT PO SCH ×3 (09:14→18:24)
[2019-03-03] MEDS: ZESTRIL PO SCH (09:14)
[2019-03-03] MEDS: NORVASC PO SCH (09:15)
[2019-03-03] MEDS: PEPCID PO SCH (09:15)
[2019-03-03] MEDS: VIBRAMYCIN PO SCH (09:15)
[2019-03-03] MEDS: NEURONTIN PO SCH ×2 (09:15→13:04)
[2019-03-03] MEDS: PROTONIX PO SCH (09:17)
[2019-03-03] MEDS: SODIUM CHLORIDE FLUSH SYRINGE 10 ML IV SCH (09:17)
--- NOTE | 2019-03-03 09:33 | Progress Note ---
Assessment and Plan Cultures: Blood culture 02/28/19 no growth to date Assessment: 53 y/o male with history of DM with peripheral neuropathy, tobacco use, PVD s/p recent left 2nd toe amputation, s/p Stent placemen 2weeks before admission; admitted on 02/27/19 due to 3 day-history of left foot severe pain and edema: - Elevated lactate: Resolved, ?likely from limb ischemia? v/s less likely mild left foot cellulitis. Left foot XR s/p 2nd toe amputation +forefoot soft tissue edema. Venous US no DVT. Art US no flow mid to distal left posterior tibial artery. CRP low. - PVD s/p recent left 2nd toe amputation, s/p Stent placement Recommendations: - follow-up blood cultures -Continue Keflex 500mg PO QID and Doxycycline 100mg PO BID for total 7 days ending 03-06-19 - needs further revascularization outpatient per vascular. [facility] M: [phone] O:[phone] Subjective Date of service: 03/03/19 Interval history: Patient seen and examined. Improved left foot pain. No SOB or fevers. Objective - Exam Narrative Exam: General appearance: Alert in NAD, conversant Eyes: anicteric sclerae, moist conjunctivae; no lid-lag; PERRLA HENT: Atraumatic; oropharynx clear with moist mucous membranes and no mucosal ulcerations/no oral thrush; normal hard and soft palate. Normal external ears. Neck: Trachea midline; supple, no thyromegaly or lymphadenopathy Lungs: CTA, with normal respiratory effort and no intercostal retractions CV: RRR, no murmurs Abdomen: Soft, non-tender; no masses or hepatosplenomegaly Extremities: Left 2nd toe amputated wound with sutures no edema, no erythema or drainage. Left foot pain improved. Skin: Normal temperature, turgor and texture; no rash, ulcers or subcutaneous nodules Psych: Appropriate affect, alert and oriented to person, place and time. Neuro: alert and oriented x 3. Moving all extermities - Constitutional Vitals: Vital Signs Temp Pulse Resp BP Pulse Ox 97.8 F 95 H 20 166/96 94 03/03/19 04:42 03/03/19 04:41 03/03/19 04:42 03/03/19 04:41 03/03/19 04:41 Temperature -Last 24 Hours Temperature 97.8 F Temperature 97.8 F Temperature 98.4 F Temperature 97.8 F Temperature 98.0 F - Labs CBC & Chem 7: 03/01/19 05:23 03/01/19 05:23 Labs: Abnormal lab results 03/01/19 03/02/19 03/03/19 Range/Units 05:23 20:59 00:12 POC Glucose 333 H 324 H (70-105) Hemoglobin A1c 11.1 H (4-6) % 03/03/19 Range/Units 05:59 POC Glucose 276 H (70-105) Hemoglobin A1c (4-6) %
--- NOTE | 2019-03-03 10:46 | Progress Note ---
Assessment and Plan - Patient Problems (1) Atherosclerosis of [place] arteries of the extremities with ulceration Current Visit: Yes Status: Chronic Plan to address problem: Patient has known peripheral arterial occlusive disease. He ultimately will re quire revascularization. Patient can follow-up as outpatient with our service. Subjective Date of service: 03/03/19 Interval history: No new complaints. Objective - Constitutional Vitals: Vital Signs - 12hr 03/02/19 03/02/19 03/03/19 23:07 23:26 03:13 Temperature 98.4 F Pulse Rate 100 H Respiratory 20 18 19 Rate Blood Pressure 132/78 O2 Sat by Pulse 97 Oximetry 03/03/19 03/03/19 03/03/19 04:13 04:41 04:42 Temperature 97.8 F 97.8 F Pulse Rate 95 H Respiratory 18 24 20 Rate Blood Pressure 166/96 O2 Sat by Pulse 94 Oximetry 03/03/19 09:40 Temperature 98.3 F Pulse Rate 107 H Respiratory 16 Rate Blood Pressure 148/98 O2 Sat by Pulse 100 Oximetry Extremity abnormal: other (wound on the left foot appears to be healing. Cellulitis appears to have resolved.) - Labs CBC & Chem 7: 03/01/19 05:23 03/01/19 05:23 Labs: Abnormal lab results 03/01/19 03/02/19 03/03/19 Range/Units 05:23 20:59 00:12 POC Glucose 333 H 324 H (70-105) Hemoglobin A1c 11.1 H (4-6) % 03/03/19 Range/Units 05:59 POC Glucose 276 H (70-105) Hemoglobin A1c (4-6) % Medications & Allergies - Medications Allergies/Adverse Reactions: Allergies No Known Allergies Allergy (Verified 02/27/19 23:33) Home Medications: Home Medications Medication Instructions Recorded Confirmed Last Taken Type Aspir-Low 81 mg PO DAILY 02/28/19 02/28/19 Unknown History AtorvaSTATin 40 mg PO HS 02/28/19 02/28/19 Unknown History Humalog Mix 75-25 Vial 50 units SUB-Q BID 02/28/19 02/28/19 Unknown History Lisinopril 20 mg PO DAILY 02/28/19 02/28/19 Unknown History Neurontin 300 mg PO TID 02/28/19 02/28/19 Unknown History OLANzapine (NF) 5 mg PO HS 02/28/19 02/28/19 Unknown History Omeprazole 40 mg PO DAILY 02/28/19 02/28/19 Unknown History Pancresuhail Wang 10,500 Unit Cap 10,500 unit PO TID 02/28/19 02/28/19 Unknown History amLODIPine 10 mg PO DAILY 02/28/19 02/28/19 Unknown History oxyCODONE /ACETAMINOPHEN 5 - 325 mg PO Q4HR PRN 02/28/19 02/28/19 Unknown History Active Medications: Generic Name Dose Route Start Last Admin Trade Name Freq PRN Reason Stop Dose Admin Acetaminophen 650 mg 02/28/19 11:08 Tylenol PO Q4H PRN Pain MILD(1-3)/Fever >100.5/MARTINEZ Albuterol 2.5 mg 02/28/19 11:08 Proventil IH Q4HRT PRN Shortness Of Breath Amlodipine Besylate 10 mg 03/01/19 10:00 03/03/19 09:15 Norvasc PO 10 mg DAILY YAEL Administration Lipase/Protease/Amylase 1 each 03/01/19 07:30 03/03/19 09:14 Pancresuhail Wang 10,500 Unit PO 1 each TIDAC YAEL Administration Aspirin 81 mg 03/01/19 10:00 03/03/19 09:13 Halfprin Ec PO 81 mg DAILY YAEL Administration Atorvastatin Calcium 40 mg 02/28/19 22:00 03/02/19 22:25 Lipitor PO 40 mg HS YAEL Administration Cephalexin 500 mg 03/02/19 12:00 03/03/19 05:44 Keflex PO 500 mg Q6HR YAEL Administration Dextrose 50 ml 02/28/19 11:09 03/02/19 01:45 D50w (25gm) Syringe IV 50 ml PRN PRN Administration Hypoglycemia Doxycycline Hyclate 100 mg 03/02/19 12:00 03/03/19 09:15 Vibramycin PO 100 mg BID YAEL Administration Enoxaparin Sodium 40 mg 02/28/19 22:00 03/02/19 22:25 Lovenox SUB-Q 40 mg QDAY@2200 YAEL Administration Famotidine 20 mg 02/28/19 22:00 03/03/19 09:15 Pepcid PO 20 mg BID YAEL Administration Gabapentin 300 mg 03/01/19 08:00 03/03/19 09:15 Neurontin PO 300 mg TID YAEL Administration Hydralazine HCl 10 mg 03/01/19 09:13 Apresoline IV Q6H PRN Hypertension Insulin Human Isoph/Insulin Regular 10 unit 03/02/19 18:00 03/03/19 09:15 Humulin 70/30 SUB-Q 10 unit BIDDIAB YAEL Administration Insulin Human Lispro 0 unit 02/28/19 12:00 03/03/19 06:19 Humalog SUB-Q 3 unit Q6HR YAEL Administration Protocol Lisinopril 20 mg 03/01/19 10:00 03/03/19 09:14 Zestril PO 20 mg DAILY YAEL Administration Morphine Sulfate 2 mg 03/01/19 09:12 03/02/19 05:54 Morphine IV 2 mg Q4H PRN Administration Pain, Moderate (4-6) Olanzapine 5 mg 02/28/19 22:00 03/02/19 22:25 Zyprexa PO 5 mg HS YAEL Administration Ondansetron HCl 4 mg 02/28/19 11:08 Zofran IV Q8H PRN Nausea And Vomiting Oxycodone/Acetaminophen 1 tab 02/28/19 23:00 03/03/19 09:25 Percocet 5/325 PO 1 tab Q4H PRN Administration Pain, (7-10) Pantoprazole Sodium 40 mg 03/01/19 10:00 03/03/19 09:17 Protonix PO 40 mg DAILY YAEL Administration Sodium Chloride 10 ml 02/28/19 22:00 03/03/19 09:17 Sodium Chloride Flush Syringe 10 Ml IV 10 ml BID YAEL Administration Sodium Chloride 10 ml 02/28/19 11:08 Sodium Chloride Flush Syringe 10 Ml IV PRN PRN LINE FLUSH
[2019-03-03 16:20] VITALS: BP 113/72
--- NOTE | 2019-03-03 16:40 | Discharge Summary ---
Providers - Providers Date of Admission: 02/28/19 11:02 Date of discharge: 03/03/19 Attending physician: VIRI STEEN 02/28/19 11:10 Consult to Physician [CONS] Urgent Comment: Occlusion posterior tibial right. Warm foot. Consulting Provider: ELVIS TATE Physician Instructions: Reason For Exam: history of PVD, stenting previously recommended. 02/28/19 19:41 Consult to Wound/ET Nurse [CONS] Routine Reason For Exam: wound eval 03/01/19 09:11 Consult to Physician [CONS] Routine Comment: Consulting Provider: ZAINA LEMONS Physician Instructions: Reason For Exam: diabetic foot ulcer Primary care physician: SHELLAC POLISHER Hospitalization Condition: Fair Hospital course: Patient is 53 yo with hypertension, diabetes, diabetic neuropathy, nicotine dependence, pancreatitis, PVD s/p recent toe amputation, s/p stent placement. He presented to ED for evaluation of pain in his left foot over the past 3 days with persistent symptoms over the same time frame. Patient was seen and evaluated in ED and found to have cellulitis left lower extremity at site of recent amputation . He was started on iv Antibiotics and admitted. he was evaluated by Vasc surgeon and ID Physician. He improved in few days. vasc surgery recommended outpatient follow up, ID Physician recommended discharge on Keflex and Doxycycline for total 7 days. He was then discharged home. Total time spent on discharge, 31 mins Disposition: DC-01 TO HOME OR SELFCARE - Discharge Diagnoses (1) PAD (peripheral artery disease) Status: Acute (2) Cellulitis of left foot Status: Acute (3) Diabetic neuropathy Status: Acute (4) HTN (hypertension) Status: Acute Qualifiers: Hypertension type: essential hypertension Qualified Code(s): I10 - Essential (primary) hypertension (5) Insulin dependent diabetes mellitus Status: Acute (6) Peripheral vascular disease Status: Acute (7) Uncontrolled hypertension Status: Acute Core Measure Documentation - Palliative Care Palliative Care/ Comfort Measures: Not Applicable - Core Measures Any of the following diagnoses?: none Exam - Constitutional Vitals: Temp Pulse Resp BP Pulse Ox 99.4 F 92 H 15 113/72 97 03/03/19 16:19 03/03/19 16:19 03/03/19 16:19 03/03/19 16:19 03/03/19 16:19 Plan Activity: advance as tolerated Diet: low fat, low cholesterol, low salt, diabetic Additional Instructions: 1.Follow up with PCP or [facility] in 1 week. 2.Follow up with Dr. Zavala, Vasc Surg in 1 week Follow up with: PRIMARY CARE, [Primary Care Provider] - 3-5 Days Prescriptions: cephALEXin [Keflex] 500 mg PO Q6HR 4 Days capsule DOXYCYCLINE Hyclate [Vibramycin CAP] 100 mg PO BID #4 capsule
== END 2019-03-03 20:24 | disposition home or self-care (01) | DRG 872 ==
LOC: ED 22:05 → 3A 02-28 11:02
PROVIDERS: ADMIT Internal Medicine; ATTEND Internal Medicine
DX: A41.9 Sepsis, unspecified organism (principal); L03.116 Cellulitis of left lower limb; E87.2 Acidosis; E11.51 Type 2 diabetes mellitus with diabetic peripheral angiopathy without gangrene; E11.649 Type 2 diabetes mellitus with hypoglycemia without coma; I70.245 Atherosclerosis of native arteries of left leg with ulceration of other part of foot; L97.529 Non-pressure chronic ulcer of other part of left foot with unspecified severity; F17.210 Nicotine dependence, cigarettes, uncomplicated; I16.0 Hypertensive urgency; Z79.899 Other long term (current) drug therapy; Z89.422 Acquired absence of other left toe(s); Z95.820 Peripheral vascular angioplasty status with implants and grafts; Z71.6 Tobacco abuse counseling; Z79.4 Long term (current) use of insulin
CPT/HCPCS: 36415; 71046; 80048; 80053; 80076; 80307; 81001; 82140; 82550; 82553; 82962; 83036; 83735; 84484; 85025; 85379; 85610; 85730; 86140; 87040; 87116; 93005; 93010; 96365; 96368; 96375; 99406; G0378; A9270-GY; J0360; J1650; J1815; J2270; J2405; J2543; J3370; J7030; J7040

== ENCOUNTER 2019-06-21 21:27 | Observation (INO) | payer MEDICAID, OTHER ==
[2019-06-21] MEDS ORDERED: MORPHINE IV ONE (22:53)
--- NOTE | 2019-06-21 22:55 | Emergency Department Report ---
ED Chest Pain HPI - General Chief Complaint: Chest Pain Stated Complaint: CHEST PAIN Time Seen by Provider: 06/21/19 22:33 Source: EMS Mode of arrival: Stretcher Limitations: Physical Limitation - History of Present Illness Initial Comments: 53-year-old male presents to the emergency department by EMS from home with a complaint of some midsternal to left-sided chest painand going on for the past few days. He also complains of some continued pain to the left foot where he had an amputation done about a month ago in [place]. Patient has a past medical history of diabetes, hypertension, peripheral arterial disease, neuropathy. He did not receive anything for his symptoms in route. No recent travel or sick contacts at home. His primary care physician is a Dr. Angulo at [facility]. Severity scale (0 -10): 5 - Related Data Home Medications Medication Instructions Recorded Confirmed Last Taken Aspir-Low 81 mg PO DAILY 02/28/19 02/28/19 Unknown AtorvaSTATin 40 mg PO HS 02/28/19 02/28/19 Unknown Humalog Mix 75-25 Vial 50 units SUB-Q BID 02/28/19 02/28/19 Unknown Lisinopril 20 mg PO DAILY 02/28/19 02/28/19 Unknown Neurontin 300 mg PO TID 02/28/19 02/28/19 Unknown OLANzapine (NF) 5 mg PO HS 02/28/19 02/28/19 Unknown Omeprazole 40 mg PO DAILY 02/28/19 02/28/[address] 10,500 Unit Cap 10,500 unit PO TID 02/28/19 02/28/19 Unknown amLODIPine 10 mg PO DAILY 02/28/19 02/28/19 Unknown oxyCODONE /ACETAMINOPHEN 5 - 325 mg PO Q4HR PRN 02/28/19 02/28/19 Unknown Previous Rx's Medication Instructions Recorded Last Taken Type DOXYCYCLINE Hyclate [Vibramycin 100 mg PO BID #4 capsule 03/03/19 Unknown Rx CAP] cephALEXin [Keflex] 500 mg PO Q6HR 4 Days capsule 03/03/19 Unknown Rx Allergies Allergy/AdvReac Type Severity Reaction Status Date / Time No Known Allergies Allergy Verified 06/21/19 22:47 Heart Score - HEART Score History: Moderately suspicious EKG: Non-specific Age: 45-65 Risk factors: 1-2 risk factors Troponin: < normal limit HEART Score: 4 - Critical Actions Critical Actions: 4-6 pts:12-16.6% risk of adverse cardiac event. Should be admitted ED Review of Systems ROS: Stated complaint: CHEST PAIN Other details as noted in HPI Comment: All other systems reviewed and negative Constitutional: denies: chills, fever Eyes: denies: eye pain, vision change ENT: denies: ear pain, throat pain Respiratory: shortness of breath. denies: cough Cardiovascular: chest pain. denies: palpitations Gastrointestinal: denies: abdominal pain, vomiting Genitourinary: denies: dysuria, discharge Musculoskeletal: arthralgia. denies: back pain Skin: denies: rash, lesions Neurological: denies: headache, weakness ED Past Medical Hx - Past Medical History Hx Hypertension: Yes Hx Diabetes: Yes Additional medical history: PAD, Pancreatitis, Neuropathy - Surgical History Past Surgical History?: Yes Additional Surgical History: Bilateral Inguinal Repair., left partial foot amputee - Social History Smoking Status: Current Every Day Smoker Substance Use Type: None - Medications Home Medications: Home Medications Medication Instructions Recorded Confirmed Last Taken Type Aspir-Low 81 mg PO DAILY 02/28/19 02/28/19 Unknown History AtorvaSTATin 40 mg PO HS 02/28/19 02/28/19 Unknown History Humalog Mix 75-25 Vial 50 units SUB-Q BID 02/28/19 02/28/19 Unknown History Lisinopril 20 mg PO DAILY 02/28/19 02/28/19 Unknown History Neurontin 300 mg PO TID 02/28/19 02/28/19 Unknown History OLANzapine (NF) 5 mg PO HS 02/28/19 02/28/19 Unknown History Omeprazole 40 mg PO DAILY 02/28/19 02/28/[address] 10,500 Unit Cap 10,500 unit PO TID 02/28/19 02/28/19 Unknown History amLODIPine 10 mg PO DAILY 02/28/19 02/28/19 Unknown History oxyCODONE /ACETAMINOPHEN 5 - 325 mg PO Q4HR PRN 02/28/19 02/28/19 Unknown History DOXYCYCLINE Hyclate [Vibramycin 100 mg PO BID #4 capsule 03/03/19 Unknown Rx CAP] cephALEXin [Keflex] 500 mg PO Q6HR 4 Days capsule 03/03/19 Unknown Rx ED Physical Exam - General Limitations: Physical Limitation - Other Other exam information: GENERAL: The patient is well-developed well-nourished. HENT: Normocephalic. Atraumatic. Patient has moist mucous membranes. EYES: Extraocular motions are intact. NECK: Supple. Trachea is midline. CHEST/LUNGS: Clear to auscultation. There is no respiratory distress noted. Chest pain is not reproducible to palpation of the chest wall. HEART/CARDIOVASCULAR: Regular. There is mild tachycardia. There is no murmur. ABDOMEN: Abdomen is soft, nontender. Patient has normal bowel sounds. There is no abdominal distention. SKIN: Skin is warm and dry. NEURO: The patient is awake, alert, and oriented. The patient is cooperative. The patient has no focal neurologic deficits. The patient has normal speech. MUSCULOSKELETAL: Left foot amputation that is chronic. There is no evidence of acute injury. ED Course Vital Signs 06/21/19 06/21/19 22:25 22:48 Temperature 98.2 F Pulse Rate 110 H Respiratory 18 Rate Blood Pressure 114/89 [Right] O2 Sat by Pulse 99 100 Oximetry GLORIA score - Gloria Score Age > 65: (0) No Aspirin use within the Past 7 Days: (0) No 3 or more CAD Risk Factors: (1) Yes 2 or more Angina events in past 24 hrs: (1) Yes Known CAD with more than 50% Stenosis: (1) Yes Elevated Cardiac Markers: (0) No ST Deviation Greater than 0.5mm: (0) No GLORIA Score: 3 ED Medical Decision Making - Lab Data Result diagrams: 06/21/19 22:55 06/21/19 22:55 - EKG Data -: EKG Interpreted by Me EKG shows normal: sinus rhythm, axis, intervals, QRS complexes (LVH), ST-T waves Rate: tachycardia (111 bpm) - EKG Data When compared to previous EKG there are: no significant change Interpretation: unchanged when compared t (02/2019) - Radiology Data Radiology results: image reviewed interpreted by me: Chest x-ray does not show any acute process. There are no pleural effusions, obvious pneumonia and there is no pneumothorax. - Medical Decision Making This patient presents to the emergency department with an acute midsternal to left-sided chest pain. EKG shows LVH but otherwise no signs of ST elevation VT or dysrhythmia. First troponin negative. He has an elevated d-dimer level. Chest x-ray does not show any focal consolidation, pneumothorax, pleural effusions, pneumonia, or any other acute process. The patient has a heart score of 4. He will be admitted to the hospital for further evaluation and treatment and was accepted for admission by the hospitalist, Dr. Lopez. - Differential Diagnosis VT, PE, Pneumonia, Costochondritis Critical Care Time: No Critical care attestation.: If time is entered above; I have spent that time in minutes in the direct care of this critically ill patient, excluding procedure time. ED Disposition Clinical Impression: Acute chest pain Disposition: OP ADMIT IP TO THIS HOSP Is pt being admited?: Yes Condition: Fair
[2019-06-21 23:33] LABS: Basophils # (Auto) 0.1 K/mm3 (0.0-0.1); Basophils % (Auto) 0.6 % (0.0-1.8); Eosinophils # (Auto) 0.2 K/mm3 (0.0-0.4); Eosinophils % (Auto) 1.9 % (0.0-4.3); Hematocrit 38.1 % (35.5-45.6); Hemoglobin 13.3 gm/dl (11.8-15.2); Lymphocytes # (Auto) 2.6 K/mm3 (1.2-5.4); Lymphocytes % (Auto) 25.6 % (13.4-35.0); Mean Corpuscular HGB Conc 35 % (32-34); Mean Corpuscular Volume 92 fl (84-94); Monocytes # (Auto) 1.6 K/mm3 (0.0-0.8); Monocytes % (Auto) 15.7 % (0.0-7.3); Platelet Count 355 K/mm3 (140-440); Red Blood Count 4.17 M/mm3 (3.65-5.03); Red Cell Distribution Width 13.1 % (13.2-15.2)
[2019-06-21 23:51] LABS: BUN/Creatinine Ratio 14; Blood Urea Nitrogen 17 mg/dL (9-20); Calcium 9.3 mg/dL (8.4-10.2); Hemolysis Index 3
[2019-06-22] MEDS ORDERED: MORPHINE ONE ×3 (00:02→08:17)
[2019-06-22] MEDS ORDERED: DILAUDID IV ONE (01:14)
[2019-06-22] MEDS: MORPHINE IV ONE ×2 (01:17→01:19)
[2019-06-22] MEDS ORDERED: D50W (25GM) Syringe IV PRN (01:38)
[2019-06-22] MEDS ORDERED: NITROSTAT SL PRN (01:41)
[2019-06-22] MEDS ORDERED: ZOFRAN IV PRN (01:42)
[2019-06-22] MEDS ORDERED: TYLENOL PO PRN (01:43)
[2019-06-22] MEDS: MORPHINE IV PRN ×4 (04:29→16:52)
[2019-06-22] MEDS: NITRO-BID 2% TP SCH ×4 (04:34→12:49)
[2019-06-22] MEDS: HumaLOG SUB-Q SCH ×3 (04:42→12:04)
[2019-06-22 06:14] LABS: Creatine Kinase MB 5.1 ng/mL (0.0-4.0)
[2019-06-22] MEDS ORDERED: LEXISCAN IV ONE (07:00)
[2019-06-22] MEDS: HEPARIN SUB-Q SCH ×2 (10:51→12:48)
[2019-06-22] MEDS: ASPIRIN PO SCH ×2 (10:51→12:48)
--- NOTE | 2019-06-22 11:21 | History and Physical Report ---
CHIEF COMPLAINT: Chest pain. HISTORY OF PRESENTING ILLNESS: The patient is a 53-year-old male presenting to the Emergency Department with complaint of left-sided chest pain, also involving the midsternal area that has been going on for some days to weeks. The patient said that the chest pain is associated with shortness of breath and nausea, but no vomiting and the patient also complained of pain in the left foot where he had an amputation done about a month ago at [facility]. He has no history of cough, no history of fever or chills and no history of diaphoresis. The patient said he is worried about his chest pain because his father had coronary artery disease and also his grandfather had coronary artery disease. PAST MEDICAL HISTORY: Pertinent for diabetes mellitus, hypertension, peripheral neuropathy, pancreatitis. PAST SURGICAL HISTORY: Pertinent for inguinal hernia repair, left partial foot amputation. FAMILY HISTORY: Family history is pertinent for coronary artery disease in the father. SOCIAL HISTORY: The patient smokes cigarette, does not use illicit drug and it is not clear whether the patient drinks alcohol. MEDICATIONS: The patient is on aspirin 81 mg daily; Lipitor 40 mg at bedtime; Humalog insulin 75/25, 50 units subcutaneously twice daily; lisinopril 20 mg by mouth daily; Neurontin 300 mg by mouth 3 times daily; olanzapine 5 mg by mouth at bedtime; omeprazole 40 mg daily; Pancrease 10,500 units by mouth t.i.d.; amlodipine 10 mg by mouth daily; oxycodone/acetaminophen 5/325 mg by mouth every 4 hours; Vibramycin 100 mg by mouth twice daily; and Keflex 500 mg by mouth every 6 hours, 4 days. ALLERGIES: There are no known drug allergies. REVIEW OF SYSTEMS: CONSTITUTIONAL: There is no fever, no chills, no diaphoresis. HEENT: There is no headache or sore throat. CARDIOVASCULAR SYSTEM: Chest pain is present. No orthopnea. RESPIRATORY SYSTEM: Shortness of breath present. No cough. GASTROINTESTINAL SYSTEM: There is nausea, but no vomiting, no abdominal pain, diarrhea or constipation. NEUROLOGICAL SYSTEM: There is no numbness, no dizziness, no altered mental status. MUSCULOSKELETAL SYSTEM: There is no joint pain or swelling. DERMATOLOGICAL SYSTEM: There is no skin rash or itching. GENITOURINARY SYSTEM: There is no dysuria, hematuria or flank pain. Rest of system review is normal. PHYSICAL EXAMINATION: GENERAL: At the time of exam, the patient was found to be alert, oriented x 3 and not in acute distress. VITAL SIGNS: At the initial time of presentation showed temperature of 98.2 degrees Fahrenheit, pulse of 110, respirations 18, blood pressure 114/89, O2 sat of 99% on room air. HEENT: Showed pupils to be equal, round and reactive to light and accommodation. Extraocular muscles are intact. NECK: Neck is supple with no JVD or carotid bruit. CARDIOVASCULAR SYSTEM: Showed normal first and second heart sounds, with no gallops or murmur. RESPIRATORY SYSTEM: Showed good air entry on both sides of the lungs with no abnormal breath sounds. GASTROINTESTINAL SYSTEM: Showed abdomen to be full, soft, nontender with no organomegaly or rigidity. NEUROLOGICAL: Showed no focal deficit. MUSCULOSKELETAL SYSTEM: Showed no joint swelling or tenderness. DERMATOLOGICAL SYSTEM: Showed no skin rash. GENITOURINARY SYSTEM: Showed no costovertebral angle tenderness. PERTINENT LABORATORY DATA: The patient had CBC done with normal white count, normal hemoglobin and normal hematocrit with CBC differential coming back unremarkable. The patient's coagulation studies show high D-dimer level of 280. The patient's chemistry show low blood glucose level of 57, normal electrolytes and normal brain natriuretic peptide level. Cardiac enzymes show normal troponin level. IMAGING STUDIES: The patient had a chest x-ray done, with no report of any abnormal result. DIAGNOSES: 1. Chest pain. 2. Elevated D-dimer. PLAN OF CARE: 1. The patient will be admitted to telemetry. 2. The patient will have serial cardiac enzymes involving troponin, total CK and CK-MB done every 6 hours x 2 more levels. 3. The patient will be n.p.o. for Lexiscan stress test in the morning. 4. The patient will be on nitro paste 0.5 inch to anterior chest wall q.i.d. and Nitrostat 0.4 mg every 5 minutes sublingually for breakthrough chest pain. 5. The patient will be on IV morphine 2 mg every 4 hours as needed for pain and IV Zofran 4 mg every 8 hours for nausea and vomiting. 6. The patient will be on aspirin 325 mg by mouth daily and will be on heparin 5000 units subcutaneous q.12 hours for DVT prophylaxis. 7. The patient will be on Tylenol 650 mg by mouth every 4 hours for fever and headache. 8. The patient will be on Accu-Chek q.4 hours followed by low-dose sliding scale using regular insulin coverage. 9. The patient will remain n.p.o. for Lexiscan stress test in the morning. 10. The patient will have CT angiogram of the chest done in the morning to rule out PE because of chest pain with elevated D-dimer. JOB# [id number] OCN/NTS MTDD
[2019-06-22 12:41] LABS: Creatine Kinase MB 5.2 ng/mL (0.0-4.0)
--- NOTE | 2019-06-22 12:41 | Progress Note ---
Hospitalist Physical - Constitutional Vitals: Temp Pulse Resp BP Pulse Ox 97.4 F L 78 18 130/73 98 06/22/19 08:32 06/22/19 09:35 06/22/19 08:32 06/22/19 10:43 06/22/19 08:32 Results - Labs CBC & Chem 7: 06/21/19 22:55 08 22:55 Labs: Laboratory Last Values WBC 10.4 K/mm3 (4.5-11.0) 06/21/19 22:55 RBC 4.17 M/mm3 (3.65-5.03) 06/21/19 22:55 Hgb 13.3 gm/dl (11.8-15.2) 06/21/19 22:55 Hct 38.1 % (35.5-45.6) 06/21/19 22:55 MCV 92 fl (84-94) 06/21/19 22:55 MCH 32 pg (28-32) 06/21/19 22:55 MCHC 35 % (32-34) H 06/21/19 22:55 RDW 13.1 % (13.2-15.2) L 06/21/19 22:55 Plt Count 355 K/mm3 (140-440) 06/21/19 22:55 Lymph % (Auto) 25.6 % (13.4-35.0) 06/21/19 22:55 Powell % (Auto) 15.7 % (0.0-7.3) H 06/21/19 22:55 Eos % (Auto) 1.9 % (0.0-4.3) 06/21/19 22:55 Baso % (Auto) 0.6 % (0.0-1.8) 06/21/19 22:55 Lymph # 2.6 K/mm3 (1.2-5.4) 06/21/19 22:55 Powell # 1.6 K/mm3 (0.0-0.8) H 06/21/19 22:55 Eos # 0.2 K/mm3 (0.0-0.4) 06/21/19 22:55 Baso # 0.1 K/mm3 (0.0-0.1) 06/21/19 22:55 Seg Neutrophils % 56.2 % (40.0-70.0) 06/21/19 22:55 Seg Neutrophils # 5.8 K/mm3 (1.8-7.7) 06/21/19 22:55 280.12 ng/mlDDU (0-234) H 06/21/19 22:55 Sodium 142 mmol/L (137-145) 06/21/19 22:55 Potassium 4.3 mmol/L (3.6-5.0) 06/21/19 22:55 Chloride 101.5 mmol/L (98-107) 06/21/19 22:55 Carbon Dioxide 25 mmol/L (22-30) 06/21/19 22:55 20 mmol/L 06/21/19 22:55 BUN 17 mg/dL (9-20) 06/21/19 22:55 1.2 mg/dL (0.8-1.5) 06/21/19 22:55 Estimated GFR > 60 ml/min 06/21/19 22:55 14 % 06/21/19 22:55 Glucose 57 mg/dL (75-100) L 06/21/19 22:55 POC Glucose 48 (70-105) L 06/22/19 00:47 Calcium 9.3 mg/dL (8.4-10.2) 06/21/19 22:55 30 units/L (55-170) L 06/22/19 05:11 CK-MB (CK-2) 5.1 ng/mL (0.0-4.0) H 06/22/19 05:11 CK-MB (CK-2) Rel Index 17.0 (0-4) H 06/22/19 05:11 < 0.010 ng/mL (0.00-0.029) 06/22/19 05:11 < 0.010 ng/mL (0.00-0.029) 06/22/19 05:11 NT-Pro-B Natriuret Pep 893.7 pg/mL (0-900) 06/21/19 22:55 Active Medications - Current Medications Current Medications: Generic Name Dose Route Start Last Admin Trade Name Freq PRN Reason Stop Dose Admin Acetaminophen 650 mg 06/22/19 01:43 Tylenol PO Q4H PRN Pain, Mild (1-3) Aspirin 325 mg 06/22/19 10:00 06/22/19 10:51 Aspirin PO Not Given QDAY [facility] Dextrose 50 ml 06/22/19 01:38 D50w (25gm) Syringe IV PRN PRN Hypoglycemia Heparin Sodium (Porcine) 5,000 unit 06/22/19 10:00 06/22/19 10:51 Heparin SUB-Q Not Given Q12HR [facility] Insulin Human Lispro 0 unit 06/22/19 02:00 06/22/19 12:04 Humalog SUB-Q Not Given Q4H [facility] Protocol Morphine Sulfate 2 mg 06/22/19 01:42 06/22/19 08:20 Morphine IV 2 mg Q4H PRN Administration Pain, Moderate (4-6) Nitroglycerin 0.5 inch 06/22/19 02:00 06/22/19 10:51 Nitro-Bid 2% TP Not Given QIDNTG [facility] Protocol Nitroglycerin 0.4 mg 06/22/19 01:41 Nitrostat SL .Q5MIN PRN Chest Pain Ondansetron HCl 4 mg 06/22/19 01:42 Zofran IV Q8H PRN Nausea And Vomiting
--- NOTE | 2019-06-22 12:44 | Event Note ---
Date: 06/22/19 Stress test reviewed. EF of 41%, but no ischemia or infarct. Alok Salazar NP / Lemuel Moss MD
[2019-06-22 14:21] VITALS: BP 123/77
--- NOTE | 2019-06-22 16:05 | Cat Scan Report ---
CTA CHEST WITH CONTRAST INDICATION : CHEST PAIN WITH ELEVATED D-DIMER LEVEL. TECHNIQUE: Axial imaging performed through the chest, with contrast bolus timing set to maximize opa cification of the pulmonary arteries. Sagittal and coronal reformatted images. 3-plane MIP reformatte d images were obtained. All CT scans at this location are performed using CT dose reduction for ALAR A by means of automated exposure control. 100 mL of intravenous contrast administered. COMPARISON: None FINDINGS: Bolus: Contrast bolus timing is adequate. PTE: No filling defect is present to suggest PTE. Mediastinum: Heart and great vessels appear normal. No pathologic mediastinal adenopathy. Lungs: Lungs are clear. Bones: Degenerative changes in the spine with nothing acute. Upper abdomen: Limited imaging of the upper abdomen demonstrates pancreatic calcifications consisten t with chronic pancreatitis. IMPRESSION: Negative for PTE. Clear lungs. Chronic pancreatitis. Signer Name: Madhav Hernandez Jr, MD Signed: 06/22/2019 4:01 PM Workstation Name: [id number]
--- NOTE | 2019-06-22 16:26 | Discharge Summary ---
Providers - Providers Date of Admission: 06/22/19 00:36 Date of discharge: 06/22/19 Attending physician: VIRI STEEN 06/22/19 07:18 Consult to Wound/ET Nurse [CONS] Stat Reason For Exam: wound eval Primary care physician: JHONNY CHUNG MD Hospitalization Condition: Fair Disposition: DC-01 TO HOME OR SELFCARE Core Measure Documentation - Palliative Care Palliative Care/ Comfort Measures: Not Applicable - Core Measures Any of the following diagnoses?: none Exam - Constitutional Vitals: Temp Pulse Resp BP Pulse Ox 98.1 F 82 18 123/77 100 06/22/19 14:21 06/22/19 14:21 06/22/19 14:21 06/22/19 14:21 06/22/19 14:35 Plan Activity: advance as tolerated Diet: low fat, low cholesterol, low salt Additional Instructions: 1.Follow up with Jhonny as scheduled. 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
--- NOTE | 2019-06-23 01:23 | Treadmill Report ---
NUCLEAR CARDIAC IMAGING INDICATION FOR PROCEDURE: Chest pain. Informed consent was obtained. Rest and stress nuclear cardiac imaging were performed following the intravenous administration of technetium-99m Myoview per protocol. Vasodilator stress was achieved with the intravenous administration of 0.4 mg of Lexiscan per protocol. Images were acquired in a 180-degree arc from 45 degrees ESPINAL to 45 degrees LPO. After data acquisition and reconstruction, the images were processed and reoriented into the vertical long, horizontal long, and vertical long axis slices. A polar color map of the horizontal short axis slices was generated and reviewed. The rotating planar images reviewed in cinematic format on the computer console. Gated SPECT imaging demonstrates a post-stress left ventricular ejection fraction of 41%. The left ventricle is mildly diffusely hypokinetic. Myocardial perfusion imaging demonstrates no significant cavity change between stress and rest. No significant stress-induced perfusion defects are seen. Nuclear cardiac imaging demonstrates mild left ventricular systolic dysfunction post-stress. There is no significant evidence of myocardial ischemia or necrosis. [facility]# [id number] SARAH/CHANCE
--- NOTE | 2019-06-24 14:01 | XRay Report ---
CHEST 1 VIEW INDICATION: Acute generalized chest pain. COMPARISON: None FINDINGS: Support devices: None. Heart: Within normal limits. Lungs/Pleura: No acute air space or interstitial disease. Additional findings: None. IMPRESSION: 1. No acute findings. Signer Name: Kuldip Bey MD Signed: 06/22/2019 12:26 AM Workstation Name: [id number]
== END 2019-06-22 20:30 | disposition home or self-care (01) ==
LOC: ED 21:27 → 4A 06-22 00:36
PROVIDERS: ADMIT Internal Medicine; ATTEND Internal Medicine
DX: R07.89 Other chest pain (principal); E11.43 Type 2 diabetes mellitus with diabetic autonomic (poly)neuropathy; I10 Essential (primary) hypertension; R79.89 Other specified abnormal findings of blood chemistry; F17.210 Nicotine dependence, cigarettes, uncomplicated
CPT/HCPCS: 36415; 71045; 71275; 78452; 80048; 82550; 82553; 82962; 83880; 84484; 85025; 85379; 93005; 93010; 93017; 96372; 96374; 96376; 99284; A9502; G0378; J1644; J2270; Q9967

== ENCOUNTER 2020-01-10 10:11 | Observation (INO) | payer MEDICAID ==
[2020-01-10] MEDS ORDERED: DEXTROSE 50% IN WATER (25GM) 50 ML SYRINGE IV ONE ×3 (10:16→12:26)
--- NOTE | 2020-01-10 10:42 | Emergency Department Report ---
ED General Adult HPI - General Chief complaint: Hypoglycemia Stated complaint: HYPOGLYCEMIA Time Seen by Provider: 01/10/20 10:27 Source: patient, EMS Mode of arrival: Stretcher Limitations: No Limitations - History of Present Illness Initial comments: Patient is 54 years old male with history of type 2 diabetes. Patient brought to the emergency room from a local pharmacy after patient passed out. EMS stated that his initial blood glucose was 28. Patient received dextrose 50 and patient started waking up. Patient now is alert oriented x3 and able to answer questions appropriately. Patient stated that he is taking Humalog 10 to 15 units before meal and also Levemir 40 units at night. Patient denied taking any anti-hyperglycemic oral medication. Patient also denied any chest pain, shortness of breath, abdominal pain, nausea or vomiting. No headache weakness numbness or tingling sensation. Severity scale (0 -10): 0 - Related Data Home Medications Medication Instructions Recorded Confirmed Last Taken AtorvaSTATin 40 mg PO HS 02/28/19 01/05/[address] 10,500 Unit Cap 10,500 unit PO TID 02/28/19 01/05/20 Unknown Fluticasone [Flonase] 1 spray NS BID 01/05/20 01/05/20 Unknown Previous Rx's Medication Instructions Recorded Last Taken Type Aspirin EC [Halfprin EC] 81 mg PO QDAY #30 tablet 12/10/19 Unknown Rx Neurontin 300 mg PO TID #14 12/10/19 Unknown Rx Folic Acid [Folvite] 1 mg PO QDAY #30 tablet 01/07/20 Unknown Rx Insulin Regular, Human [HumuLIN R] 1 dose SQ Q6HR PRN #1000 ml 01/07/20 Unknown Rx Metoprolol [Lopressor TAB] 25 mg PO BID #60 tablet 01/07/20 Unknown Rx OLANzapine [ZyPREXA] 5 mg PO HS #30 tablet 01/07/20 Unknown Rx Pantoprazole [Protonix TAB] 40 mg PO QDAY #30 tablet 01/07/20 Unknown Rx Thiamine [Vitamin B-1] 100 mg PO QDAY #30 tablet 01/07/20 Unknown Rx amLODIPine 10 mg PO QDAY #30 tablet 01/07/20 Unknown Rx lisinopriL [Zestril TAB] 20 mg PO QDAY #30 tab 01/07/20 Unknown Rx oxyCODONE /ACETAMINOPHEN [Percocet 1 tab PO Q6H PRN #12 tablet 01/07/20 Unknown Rx 5/325 mg] Allergies Allergy/AdvReac Type Severity Reaction Status Date / Time No Known Allergies Allergy Verified 06/21/19 22:47 ED Review of Systems ROS: Stated complaint: HYPOGLYCEMIA Other details as noted in HPI Comment: All other systems reviewed and negative Constitutional: denies: chills, fever Respiratory: denies: cough, shortness of breath, SOB with exertion Cardiovascular: denies: chest pain, palpitations Gastrointestinal: denies: abdominal pain, nausea, vomiting Neurological: denies: headache, weakness, numbness, paresthesias, confusion ED Past Medical Hx - Past Medical History Previous Medical History?: Yes Hx Hypertension: Yes Hx Diabetes: Yes Hx Psychiatric Treatment: Yes (bipolar, PTSD, anxiety, ETOH abuse) Additional medical history: PAD, Pancreatitis, Neuropathy - Surgical History Past Surgical History?: Yes Additional Surgical History: Bilateral Inguinal Repair., left partial foot amputee - Social History Smoking Status: Current Every Day Smoker Substance Use Type: Alcohol - Medications Home Medications: Home Medications Medication Instructions Recorded Confirmed Last Taken Type AtorvaSTATin 40 mg PO HS 02/28/19 01/05/[address] 10,500 Unit Cap 10,500 unit PO TID 02/28/19 01/05/20 Unknown History Aspirin EC [Halfprin EC] 81 mg PO QDAY #30 tablet 12/10/19 01/05/20 Unknown Rx Neurontin 300 mg PO TID #14 12/10/19 01/05/20 Unknown Rx Fluticasone [Flonase] 1 spray NS BID 01/05/20 01/05/20 Unknown History Folic Acid [Folvite] 1 mg PO QDAY #30 tablet 01/07/20 Unknown Rx Insulin Regular, Human [HumuLIN R] 1 dose SQ Q6HR PRN #1000 ml 01/07/20 Unknown Rx Metoprolol [Lopressor TAB] 25 mg PO BID #60 tablet 01/07/20 Unknown Rx OLANzapine [ZyPREXA] 5 mg PO HS #30 tablet 01/07/20 Unknown Rx Pantoprazole [Protonix TAB] 40 mg PO QDAY #30 tablet 01/07/20 Unknown Rx Thiamine [Vitamin B-1] 100 mg PO QDAY #30 tablet 01/07/20 Unknown Rx amLODIPine 10 mg PO QDAY #30 tablet 01/07/20 Unknown Rx lisinopriL [Zestril TAB] 20 mg PO QDAY #30 tab 01/07/20 Unknown Rx oxyCODONE /ACETAMINOPHEN [Percocet 1 tab PO Q6H PRN #12 tablet 01/07/20 Unknown Rx 5/325 mg] ED Physical Exam - General Limitations: No Limitations General appearance: alert, in no apparent distress - Head Head exam: Present: atraumatic, normocephalic, normal inspection - Eye Eye exam: Present: normal appearance - ENT ENT exam: Present: normal exam, normal orophraynx, mucous membranes moist - Neck Neck exam: Present: normal inspection, full ROM. Absent: tenderness, meningismus, lymphadenopathy, thyromegaly - Respiratory Respiratory exam: Present: normal lung sounds bilaterally - Cardiovascular Cardiovascular Exam: Present: regular rate, normal rhythm, normal heart sounds - GI/Abdominal GI/Abdominal exam: Present: soft, normal bowel sounds. Absent: distended, tenderness, guarding, rebound, rigid, mass, pulsatile mass, hernia - Back Exam Back exam: Present: normal inspection. Absent: CVA tenderness (R), CVA tenderness (L) - Neurological Exam Neurological exam: Present: alert, oriented X3, CN II-XII intact - Psychiatric Psychiatric exam: Present: normal mood. Absent: depressed, agitated, anxious, flat affect, manic, homicidal ideation, suicidal ideation - Skin Skin exam: Present: warm, intact, normal color ED Course Vital Signs 01/10/20 01/10/20 01/10/20 10:17 10:21 10:30 Temperature Pulse Rate 98 H 99 H 97 H Respiratory 13 13 19 Rate Blood Pressure 115/72 119/79 O2 Sat by Pulse 100 100 Oximetry 01/10/20 01/10/20 01/10/20 10:34 10:45 12:36 Temperature 98.7 F Pulse Rate 102 H Respiratory 19 18 Rate Blood Pressure 133/90 O2 Sat by Pulse 100 Oximetry ED Medical Decision Making - Lab Data Result diagrams: 01/10/20 11:00 01/10/20 11:00 - EKG Data -: EKG Interpreted by Vt EKG shows normal: sinus rhythm Rate: normal - EKG Data Interpretation: no acute changes - Radiology Data Radiology results: report reviewed - Medical Decision Making Patient is 54 years old male with history of type 2 diabetes. Patient brought to the emergency room from a local pharmacy after patient passed out. EMS stated that his initial blood glucose was 28. Patient received dextrose 50 and patient started waking up. Patient now is alert oriented x3 and able to answer questions appropriately. Patient stated that he is taking Humalog 10 to 15 units before meal and also Levemir 40 units at night. Patient denied taking any anti-hyperglycemic oral medication. Patient also denied any chest pain, shortness of breath, abdominal pain, nausea or vomiting. No headache weakness numbness or tingling sensation. Patient received 2 doses of dextrose 50 in the ER. Patient also given a meal tray. Patient blood glucose drop again to 50. Patient started on dextrose 10. I discussed the patient with Dr. Miguel, he agreed to admit the patient to medical service for further management. Critical Care Time: Yes Critical care time in (mins) excluding proc time.: 30 Critical care attestation.: If time is entered above; I have spent that time in minutes in the direct care of this critically ill patient, excluding procedure time. ED Disposition Clinical Impression: Altered mental status, Acute metabolic encephalopathy due to hypoglycemia, Acute hypokalemia Disposition: -09 OP ADMIT IP TO THIS HOSP Is pt being admited?: Yes Condition: Stable Referrals: LIZZY PACKER MD [Primary Care Provider] - 3-5 Days
[2020-01-10 11:35] LABS: Bilirubin,Urine NEG (Negative); Blood,Urine NEG (Negative); Color,Urine Yellow (Yellow); Urobilinogen,Urine < 2.0 mg/dL (<2.0); WBC,Urine < 1.0 /HPF (0.0-6.0)
[2020-01-10 11:43] LABS: Amphetamine Screen,Urine PRESUMPTIVE NEGATIVE; Benzodiazepines Screen,Urine PRESUMPTIVE NEGATIVE; Cannabinoid Screen,Urine PRESUMPTIVE NEGATIVE; Cocaine Screen,Urine PRESUMPTIVE NEGATIVE; Methadone Screen,Urine PRESUMPTIVE NEGATIVE; Opiate Screen,Urine PRESUMPTIVE NEGATIVE
[2020-01-10 11:44] LABS: Basophils % (Auto) 0.2 % (0.0-1.8); Eosinophils % (Auto) 0.4 % (0.0-4.3); Hematocrit 36.1 % (35.5-45.6); Hemoglobin 12.3 gm/dl (11.8-15.2); Lymphocytes # (Auto) 0.7 K/mm3 (1.2-5.4); Lymphocytes % (Auto) 9.9 % (13.4-35.0); Mean Corpuscular HGB Conc 34 % (32-34); Mean Corpuscular Volume 91 fl (84-94); Monocytes # (Auto) 0.7 K/mm3 (0.0-0.8); Monocytes % (Auto) 9.1 % (0.0-7.3); Platelet Count 159 K/mm3 (140-440); Red Blood Count 3.95 M/mm3 (3.65-5.03)
[2020-01-10 12:00] LABS: Alanine Aminotransferase 66 units/L (7-56); Albumin 3.8 g/dL (3.9-5); BUN/Creatinine Ratio 13; Blood Urea Nitrogen 13 mg/dL (9-20); Calcium 8.9 mg/dL (8.4-10.2); Hemolysis Index 16
[2020-01-10 12:11] LABS: Bilirubin,Direct < 0.2 mg/dL (0-0.2)
[2020-01-10] MEDS ORDERED: POTASSIUM CHLORIDE 10 MEQ 10 MEQ/100 ML BAG IV ONE (12:40)
[2020-01-10] MEDS: POTASSIUM CHLORIDE 10 MEQ 10 MEQ/100 ML BAG IV SCH ×2 (12:41→18:43)
[2020-01-10] MEDS ORDERED: DEXTROSE 10% IN WATER 1,000 ML IV SCH (13:00)
[2020-01-10] MEDS ORDERED: oxyCODONE /ACETAMINOPHEN 5-325MG TAB PO ONE (13:09)
[2020-01-10] MEDS ORDERED: ONDANSETRON 4 MG/2 ML INJ IV PRN (18:11)
[2020-01-10] MEDS ORDERED: ACETAMINOPHEN 325 MG TAB PO PRN (18:11)
[2020-01-10] MEDS ORDERED: HYDROmorphone 1 MG/1 ML INJ IV PRN (18:11)
[2020-01-10] MEDS ORDERED: SODIUM CHLORIDE 0.9% 1000 ML 1,000 ML IV SCH (18:15)
[2020-01-10] MEDS: ASPIRIN EC 81 MG TAB PO SCH (19:00)
[2020-01-10] MEDS: LISINOPRIL 20 MG TAB PO SCH (19:00)
[2020-01-10] MEDS: amLODIPine 10 MG TAB PO SCH (19:01)
[2020-01-10] MEDS: PANTOPRAZOLE 40 MG TAB PO SCH (19:06)
[2020-01-10] MEDS: FOLIC ACID 1 MG TAB PO SCH (19:06)
[2020-01-10] MEDS: THIAMINE 100 MG TAB PO SCH (19:07)
[2020-01-10] MEDS: INSULIN LISPRO 100 UNIT/ML SUB-Q SCH ×2 (19:07→22:48)
[2020-01-10] MEDS: oxyCODONE /ACETAMINOPHEN 5-325MG TAB PO PRN (19:15)
[2020-01-10] MEDS ORDERED: NEURONTIN 300 MG PO SCH (20:00)
[2020-01-10] MEDS ORDERED: PANCREAZE PO SCH (20:00)
[2020-01-10] MEDS ORDERED: NON-FORMULARY EACH (Atorvastatin 40 MG) PO SCH (22:00)
[2020-01-10] MEDS: FLUTICASONE PROPIONATE NASAL SPRAY 16 GM NS SCH (22:46)
[2020-01-10] MEDS: METOPROLOL TARTRATE 25 MG TAB PO SCH (22:47)
[2020-01-10] MEDS: GABAPENTIN 300 MG CAP PO SCH (22:48)
[2020-01-11] MEDS: oxyCODONE /ACETAMINOPHEN 5-325MG TAB PO PRN ×2 (01:59→10:40)
[2020-01-11] MEDS: INSULIN LISPRO 100 UNIT/ML SUB-Q SCH ×3 (02:29→10:36)
--- NOTE | 2020-01-11 06:20 | History and Physical Report ---
History of Present Illness Date of examination: 01/10/20 Date of admission: 01/10/20 13:08 Chief complaint: Passed out in pharmacy store--Low BG of 28 History of present illness: 54 years old male with history of type 2 IDDM brought to the emergency room from a local pharmacy after patient passed out. EMS stated that his initial blood glucose was 28. Patient received dextrose 50 and patient started waking up. Patient now is alert oriented x3 and able to answer questions appropriately. Patient stated that he is taking Humalog 10 to 15 units before meal and also Levemir 40 units at night. Patient denied taking any anti-hyperglycemic oral medication. Patient also denied any chest pain, shortness of breath, abdominal pain, nausea or vomiting. No headache weakness numbness or tingling sensation.DId not eat adequately last noght -Past Medical History Previous Medical History?: Yes Hypertension: Yes Diabetes: Yes Psychiatric Treatment: Yes (bipolar, PTSD, anxiety, ETOH abuse) Additional medical history: PAD, Pancreatitis, Neuropathy Surgical History Past Surgical History?: Yes Additional Surgical History: Bilateral Inguinal Repair., left partial foot amputee Social History Smoking Status: Current Every Day Smoker Substance Use Type: Alcohol Family Hx Htn - Medications Home Medications: Home Medications Medication Instructions Recorded Confirmed Last Taken Type AtorvaSTATin 40 mg PO HS 02/28/19 01/05/[address] 10,500 Unit Cap 10,500 unit PO TID 02/28/19 01/05/20 Unknown History Aspirin EC [Halfprin EC] 81 mg PO QDAY #30 tablet 12/10/19 01/05/20 Unknown Rx Neurontin 300 mg PO TID #14 12/10/19 01/05/20 Unknown Rx Fluticasone [Flonase] 1 spray NS BID 01/05/20 01/05/20 Unknown History Folic Acid [Folvite] 1 mg PO QDAY #30 tablet 01/07/20 Unknown Rx Insulin Regular, Human [HumuLIN R] 1 dose SQ Q6HR PRN #1000 ml 01/07/20 Unknown Rx Metoprolol [Lopressor TAB] 25 mg PO BID #60 tablet 01/07/20 Unknown Rx OLANzapine [ZyPREXA] 5 mg PO HS #30 tablet 01/07/20 Unknown Rx Pantoprazole [Protonix TAB] 40 mg PO QDAY #30 tablet 01/07/20 Unknown Rx Thiamine [Vitamin B-1] 100 mg PO QDAY #30 tablet 01/07/20 Unknown Rx amLODIPine 10 mg PO QDAY #30 tablet 01/07/20 Unknown Rx lisinopriL [Zestril TAB] 20 mg PO QDAY #30 tab 01/07/20 Unknown Rx oxyCODONE /ACETAMINOPHEN [Percocet 1 tab PO Q6H PRN #12 tablet 01/07/20 Unknown Rx 5/325 mg] Review of Systems ROS: Stated complaint: HYPOGLYCEMIA Other details as noted in HPI Comment: All other systems reviewed and negative Constitutional: denies: chills, fever Respiratory: denies: cough, shortness of breath, SOB with exertion Cardiovascular: denies: chest pain, palpitations Gastrointestinal: denies: abdominal pain, nausea, vomiting Neurological: denies: headache, weakness, numbness, paresthesias, confusion Medications and Allergies Allergies Allergy/AdvReac Type Severity Reaction Status Date / Time No Known Allergies Allergy Verified 06/21/19 22:47 Home Medications Medication Instructions Recorded Confirmed Last Taken Type AtorvaSTATin 40 mg PO HS 02/28/19 01/10/[address] 10,500 Unit Cap 10,500 unit PO TID 02/28/19 01/10/20 Unknown History Aspirin EC [Halfprin EC] 81 mg PO QDAY #30 tablet 12/10/19 01/10/20 Unknown Rx Neurontin 300 mg PO TID #14 12/10/19 01/10/20 Unknown Rx Fluticasone [Flonase] 1 spray NS BID 01/05/20 01/10/20 Unknown History Folic Acid [Folvite] 1 mg PO QDAY #30 tablet 01/07/20 01/10/20 Unknown Rx Insulin Regular, Human [HumuLIN R] 1 dose SQ Q6HR PRN #1000 ml 01/07/20 01/10/20 Unknown Rx Metoprolol [Lopressor TAB] 25 mg PO BID #60 tablet 01/07/20 01/10/20 Unknown Rx OLANzapine [ZyPREXA] 5 mg PO HS #30 tablet 01/07/20 01/10/20 Unknown Rx Pantoprazole [Protonix TAB] 40 mg PO QDAY #30 tablet 01/07/20 01/10/20 Unknown Rx Thiamine [Vitamin B-1] 100 mg PO QDAY #30 tablet 01/07/20 01/10/20 Unknown Rx amLODIPine 10 mg PO QDAY #30 tablet 01/07/20 01/10/20 Unknown Rx lisinopriL [Zestril TAB] 20 mg PO QDAY #30 tab 01/07/20 01/10/20 Unknown Rx oxyCODONE /ACETAMINOPHEN [Percocet 1 tab PO Q6H PRN #12 tablet 01/07/20 01/10/20 Unknown Rx 5/325 mg] Active Meds: Active Medications Acetaminophen (Tylenol) 650 mg PO Q4H PRN PRN Reason: Pain MILD(1-3)/Fever >100.5/MARTINEZ Amlodipine Besylate (Amlodipine) 10 mg PO QDAY [facility] Last Admin: 01/10/20 19:01 Dose: 10 mg Documented by: Lipase/Protease/Amylase (Pancreaze Dr 10,500 Unit) 1 each PO AC [facility] Aspirin (Halfprin Ec) 81 mg PO QDAY [facility] Last Admin: 01/10/20 19:00 Dose: 81 mg Documented by: Atorvastatin Calcium (Lipitor) 40 mg PO QHS [facility] Last Admin: 01/10/20 22:47 Dose: 40 mg Documented by: Fluticasone Propionate (Flonase) 50 mcg NS BID [facility] Last Admin: 01/10/20 22:46 Dose: 50 mcg Documented by: Folic Acid (Folvite) 1 mg PO QDAY [facility] Last Admin: 01/10/20 19:06 Dose: 1 mg Documented by: Gabapentin (Gabapentin) 300 mg PO Q8HR [facility] Last Admin: 01/10/20 22:48 Dose: 300 mg Documented by: Hydromorphone HCl (Dilaudid) 0.5 mg IV Q3H PRN PRN Reason: Pain , Severe (7-10) Sodium Chloride (Nacl 0.9% 1000 Ml) 1,000 mls @ 75 mls/hr IV DIRECT [facility] Last Admin: 01/10/20 18:43 Dose: 75 mls/hr Documented by: Insulin Human Lispro (Humalog) 0 unit SUB-Q Q4HR [facility]; Protocol Last Admin: 01/11/20 02:29 Dose: Not Given Documented by: Lisinopril (Zestril) 20 mg PO QDAY [facility] Last Admin: 01/10/20 19:00 Dose: 20 mg Documented by: Metoprolol Tartrate (Metoprolol) 25 mg PO BID [facility] Last Admin: 01/10/20 22:47 Dose: 25 mg Documented by: Olanzapine (Zyprexa) 5 mg PO HS [facility] Last Admin: 01/10/20 22:48 Dose: 5 mg Documented by: Ondansetron HCl (Zofran) 4 mg IV Q8H PRN PRN Reason: Nausea And Vomiting Oxycodone/Acetaminophen (Percocet 5/325) 1 tab PO Q6H PRN PRN Reason: Pain , Severe (7-10) Last Admin: 01/11/20 01:59 Dose: 1 tab Documented by: Pantoprazole Sodium (Protonix) 40 mg PO QDAY [facility] Last Admin: 01/10/20 19:06 Dose: 40 mg Documented by: Sodium Chloride (Sodium Chloride Flush Syringe 10 Ml) 10 ml IV BID [facility] Last Admin: 01/10/20 22:49 Dose: 10 ml Documented by: Sodium Chloride (Sodium Chloride Flush Syringe 10 Ml) 10 ml IV PRN PRN PRN Reason: LINE FLUSH Thiamine HCl (Vitamin B-1) 100 mg PO QDAY [facility] Last Admin: 01/10/20 19:07 Dose: 100 mg Documented by: Exam - Constitutional Vitals: Temp Pulse Resp BP Pulse Ox 98.8 F 67 16 93/63 98 01/11/20 04:19 01/11/20 04:19 01/11/20 04:19 01/11/20 04:19 01/11/20 04:19 General appearance: Present: no acute distress, well-nourished - EENT Eyes: Present: PERRL ENT: hearing intact, clear oral mucosa - Neck Neck: Present: supple, normal ROM - Respiratory Respiratory effort: normal Respiratory: bilateral: CTA - Cardiovascular Heart rate: 78 Rhythm: regular Heart Sounds: Present: S1 & S2. Absent: rub, click - Extremities Extremities: pulses symmetrical, No edema Peripheral Pulses: within normal limits - Abdominal General gastrointestinal: Present: soft, non-tender, non-distended, normal bowel sounds Male genitourinary: Present: normal - Integumentary Integumentary: Present: clear, warm, dry - Musculoskeletal Musculoskeletal: gait normal, strength equal bilaterally - Psychiatric Psychiatric: appropriate mood/affect, intact judgment & insight - Neurologic Neurologic: CNII-XII intact, moves all extremities GLORIA score - Gloria Score Age > 65: (0) No Aspirin use within the Past 7 Days: (0) No 3 or more CAD Risk Factors: (1) Yes 2 or more Angina events in past 24 hrs: (1) Yes Known CAD with more than 50% Stenosis: (1) Yes Elevated Cardiac Markers: (0) No ST Deviation Greater than 0.5mm: (0) No GLORIA Score: 3 Results - Labs CBC & Chem 7: 01/10/20 11:00 01/10/20 11:00 Labs: Laboratory Last Values WBC 7.5 K/mm3 (4.5-11.0) 01/10/20 11:00 RBC 3.95 M/mm3 (3.65-5.03) 01/10/20 11:00 Hgb 12.3 gm/dl (11.8-15.2) 01/10/20 11:00 Hct 36.1 % (35.5-45.6) 01/10/20 11:00 MCV 91 fl (84-94) 01/10/20 11:00 MCH 31 pg (28-32) 01/10/20 11:00 MCHC 34 % (32-34) 01/10/20 11:00 RDW 13.0 % (13.2-15.2) L 01/10/20 11:00 Plt Count 159 K/mm3 (140-440) 01/10/20 11:00 Lymph % (Auto) 9.9 % (13.4-35.0) L 01/10/20 11:00 [place] % (Auto) 9.1 % (0.0-7.3) H 01/10/20 11:00 Eos % (Auto) 0.4 % (0.0-4.3) 01/10/20 11:00 Baso % (Auto) 0.2 % (0.0-1.8) 01/10/20 11:00 Lymph # 0.7 K/mm3 (1.2-5.4) L 01/10/20 11:00 [place] # 0.7 K/mm3 (0.0-0.8) 01/10/20 11:00 Eos # 0.0 K/mm3 (0.0-0.4) 01/10/20 11:00 Baso # 0.0 K/mm3 (0.0-0.1) 01/10/20 11:00 Seg Neutrophils % 80.4 % (40.0-70.0) H 01/10/20 11:00 Seg Neutrophils # 6.0 K/mm3 (1.8-7.7) 01/10/20 11:00 Sodium 139 mmol/L (137-145) 01/10/20 11:00 Potassium 3.0 mmol/L (3.6-5.0) L D 01/10/20 11:00 Chloride 105.5 mmol/L (98-107) 01/10/20 11:00 Carbon Dioxide 16 mmol/L (22-30) L 01/10/20 11:00 Anion Gap 21 mmol/L 01/10/20 11:00 BUN 13 mg/dL (9-20) 01/10/20 11:00 Creatinine 1.0 mg/dL (0.8-1.5) 01/10/20 11:00 Estimated GFR > 60 ml/min 01/10/20 11:00 BUN/Creatinine Ratio 13 % 01/10/20 11:00 Glucose 61 mg/dL (75-100) L 01/10/20 11:00 POC Glucose 69 (70-105) L 01/11/20 02:26 Hemoglobin A1c 10.8 % (4-6) H 01/10/20 18:19 Calcium 8.9 mg/dL (8.4-10.2) 01/10/20 11:00 Total Bilirubin 0.20 mg/dL (0.1-1.2) 01/10/20 11:00 Direct Bilirubin < 0.2 mg/dL (0-0.2) 01/10/20 11:00 Indirect Bilirubin 0.0 mg/dL 01/10/20 11:00 AST 34 units/L (5-40) 01/10/20 11:00 ALT 66 units/L (7-56) H 01/10/20 11:00 Alkaline Phosphatase 183 units/L (35-129) H 01/10/20 11:00 Troponin T < 0.010 ng/mL (0.00-0.029) 01/10/20 11:00 Total Protein 6.2 g/dL (6.3-8.2) L 01/10/20 11:00 Albumin 3.8 g/dL (3.9-5) L 01/10/20 11:00 Albumin/Globulin Ratio 1.6 % 01/10/20 11:00 Urine Color Yellow (Yellow) 01/10/20 11:18 Urine Turbidity Clear (Clear) 01/10/20 11:18 Urine pH 5.0 (5.0-7.0) 01/10/20 11:18 Ur Specific [place] 1.014 (1.003-1.030) 01/10/20 11:18 Urine Protein 100 mg/dl mg/dL (Negative) 01/10/20 11:18 Urine Glucose (UA) 50 mg/dL (Negative) 01/10/20 11:18 Urine Ketones Neg mg/dL (Negative) 01/10/20 11:18 Urine Blood Neg (Negative) 01/10/20 11:18 Urine Nitrite Neg (Negative) 01/10/20 11:18 Urine Bilirubin Neg (Negative) 01/10/20 11:18 Urine Urobilinogen < 2.0 mg/dL (<2.0) 01/10/20 11:18 Ur Leukocyte Esterase Neg (Negative) 01/10/20 11:18 Urine WBC (Auto) < 1.0 /HPF (0.0-6.0) 01/10/20 11:18 Urine RBC (Auto) 1.0 /HPF (0.0-6.0) 01/10/20 11:18 Urine Opiates Screen Presumptive negative 01/10/20 11:18 Urine Methadone Screen Presumptive negative 01/10/20 11:18 Ur Barbiturates Screen Presumptive negative 01/10/20 11:18 Ur Phencyclidine Scrn Presumptive negative 01/10/20 11:18 Ur Amphetamines Screen Presumptive negative 01/10/20 11:18 U Benzodiazepines Scrn Presumptive negative 01/10/20 11:18 Urine Cocaine Screen Presumptive negative 01/10/20 11:18 U Marijuana (THC) Screen Presumptive negative 01/10/20 11:18 Drugs of Abuse Note Disclamer 01/10/20 11:18 Plasma/Serum Alcohol < 0.01 % (0-0.07) 01/10/20 11:00 Short CBC 01/10/20 Range/Units 11:00 WBC 7.5 (4.5-11.0) K/mm3 Hgb 12.3 (11.8-15.2) gm/dl Hct 36.1 (35.5-45.6) % Plt Count 159 (140-440) K/mm3 BMP 01/10/20 11:00 Sodium 139 Potassium 3.0 L D Chloride 105.5 Carbon Dioxide 16 L BUN 13 Creatinine 1.0 Glucose 61 L Calcium 8.9 Cardiac Enzymes 01/10/20 Range/Units 11:00 Troponin T < 0.010 (0.00-0.029) ng/mL Liver Function 01/10/20 Range/Units 11:00 Total Bilirubin 0.20 (0.1-1.2) mg/dL Direct Bilirubin < 0.2 (0-0.2) mg/dL AST 34 (5-40) units/L ALT 66 H (7-56) units/L Alkaline Phosphatase 183 H (35-129) units/L Albumin 3.8 L (3.9-5) g/dL Urine 01/10/20 Range/Units 11:18 Urine Color Yellow (Yellow) Urine pH 5.0 (5.0-7.0) Ur Specific [place] 1.014 (1.003-1.030) Urine Protein 100 mg/dl (Negative) mg/dL Urine Glucose (UA) 50 (Negative) mg/dL - Imaging and Cardiology Chest x-ray: report reviewed (NAF) Assessment and Plan Advance Directives: Yes (Full code) VTE prophylaxis?: Chemical Plan of care discussed with patient/family: Yes - Patient Problems (1) Acute metabolic encephalopathy due to hypoglycemia Current Visit: Yes Status: Acute Plan to address problem: D5w for now Accu cheks frequently Glucagon if necessary Patient counselled to cut his insulin dosage to 20 units of Levemir and 8 units of Humalog AC Primary team to give discharge instructions for lower dose of insulin (2) Hypokalemia Current Visit: No Status: Acute Plan to address problem: Supplemented (3) Pancreatic insufficiency Current Visit: Yes Status: Chronic Plan to address problem: Cont pancreatic enzymes (4) HLD (hyperlipidemia) Current Visit: Yes Status: Chronic Qualifiers: Hyperlipidemia type: mixed hyperlipidemia Qualified Code(s): E78.2 - Mixed hyperlipidemia Plan to address problem: Cont statins (5) HTN (hypertension) Current Visit: No Status: Acute Qualifiers: Hypertension type: essential hypertension Qualified Code(s): I10 - Esse ntial (primary) hypertension Plan to address problem: Cont antihypertensives (6) Bipolar 1 disorder Current Visit: Yes Status: Chronic Plan to address problem: On Zyprexa (7) GERD (gastroesophageal reflux disease) Current Visit: No Status: Chronic Qualifiers: Esophagitis presence: without esophagitis Qualified Code(s): K21.9 - Gastro-esophageal reflux disease without esophagitis Plan to address problem: On PPIs (8) DVT prophylaxis Current Visit: No Status: Acute Plan to address problem: On Heparin and Gi prophylaxis
[2020-01-11] MEDS ORDERED: POTASSIUM CHLORIDE ER 20 MEQ TAB PO ONE (06:28)
[2020-01-11] MEDS: GABAPENTIN 300 MG CAP PO SCH (06:38)
--- NOTE | 2020-01-11 07:39 | Progress Note ---
Assessment and Plan Assessment and plan: 54 years old male with history of type 2 IDDM brought to the emergency room from a local pharmacy after patient passed out. EMS stated that his initial blood glucose was 28. Patient received dextrose 50 and patient started waking up. Patient now is alert oriented x3 and able to answer questions appropriately. Patient stated that he is taking Humalog 10 to 15 units before meal and also Levemir 40 units at night. Patient denied taking any anti-hyperglycemic oral medication. Patient also denied any chest pain, shortness of breath, abdominal pain, nausea or vomiting. No headache weakness numbness or tingling sensation.DId not eat adequately last [facility] Hospitalist Physical - Constitutional Vitals: Temp Pulse Resp BP Pulse Ox 98.8 F 67 16 93/63 98 01/11/20 04:19 01/11/20 04:19 01/11/20 04:19 01/11/20 04:19 01/11/20 04:19 General appearance: Present: no acute distress, well-nourished GLORIA score - Gloria Score Age > 65: (0) No Aspirin use within the Past 7 Days: (0) No 3 or more CAD Risk Factors: (1) Yes 2 or more Angina events in past 24 hrs: (1) Yes Known CAD with more than 50% Stenosis: (1) Yes Elevated Cardiac Markers: (0) No ST Deviation Greater than 0.5mm: (0) No GLORIA Score: 3 Results - Labs CBC & Chem 7: 01/10/20 11:00 01/10/20 11:00 Labs: Laboratory Last Values WBC 7.5 K/mm3 (4.5-11.0) 01/10/20 11:00 RBC 3.95 M/mm3 (3.65-5.03) 01/10/20 11:00 Hgb 12.3 gm/dl (11.8-15.2) 01/10/20 11:00 Hct 36.1 % (35.5-45.6) 01/10/20 11:00 MCV 91 fl (84-94) 01/10/20 11:00 MCH 31 pg (28-32) 01/10/20 11:00 MCHC 34 % (32-34) 01/10/20 11:00 RDW 13.0 % (13.2-15.2) L 01/10/20 11:00 Plt Count 159 K/mm3 (140-440) 01/10/20 11:00 Lymph % (Auto) 9.9 % (13.4-35.0) L 01/10/20 11:00 [place] % (Auto) 9.1 % (0.0-7.3) H 01/10/20 11:00 Eos % (Auto) 0.4 % (0.0-4.3) 01/10/20 11:00 Baso % (Auto) 0.2 % (0.0-1.8) 01/10/20 11:00 Lymph # 0.7 K/mm3 (1.2-5.4) L 01/10/20 11:00 [place] # 0.7 K/mm3 (0.0-0.8) 01/10/20 11:00 Eos # 0.0 K/mm3 (0.0-0.4) 01/10/20 11:00 Baso # 0.0 K/mm3 (0.0-0.1) 01/10/20 11:00 Seg Neutrophils % 80.4 % (40.0-70.0) H 01/10/20 11:00 Seg Neutrophils # 6.0 K/mm3 (1.8-7.7) 01/10/20 11:00 Sodium 139 mmol/L (137-145) 01/10/20 11:00 Potassium 3.0 mmol/L (3.6-5.0) L D 01/10/20 11:00 Chloride 105.5 mmol/L (98-107) 01/10/20 11:00 Carbon Dioxide 16 mmol/L (22-30) L 01/10/20 11:00 Anion Gap 21 mmol/L 01/10/20 11:00 BUN 13 mg/dL (9-20) 01/10/20 11:00 Creatinine 1.0 mg/dL (0.8-1.5) 01/10/20 11:00 Estimated GFR > 60 ml/min 01/10/20 11:00 BUN/Creatinine Ratio 13 % 01/10/20 11:00 Glucose 61 mg/dL (75-100) L 01/10/20 11:00 POC Glucose 69 (70-105) L 01/11/20 02:26 Hemoglobin A1c 10.8 % (4-6) H 01/10/20 18:19 Calcium 8.9 mg/dL (8.4-10.2) 01/10/20 11:00 Total Bilirubin 0.20 mg/dL (0.1-1.2) 01/10/20 11:00 Direct Bilirubin < 0.2 mg/dL (0-0.2) 01/10/20 11:00 Indirect Bilirubin 0.0 mg/dL 01/10/20 11:00 AST 34 units/L (5-40) 01/10/20 11:00 ALT 66 units/L (7-56) H 01/10/20 11:00 Alkaline Phosphatase 183 units/L (35-129) H 01/10/20 11:00 Troponin T < 0.010 ng/mL (0.00-0.029) 01/10/20 11:00 Total Protein 6.2 g/dL (6.3-8.2) L 01/10/20 11:00 Albumin 3.8 g/dL (3.9-5) L 01/10/20 11:00 Albumin/Globulin Ratio 1.6 % 01/10/20 11:00 Urine Color Yellow (Yellow) 01/10/20 11:18 Urine Turbidity Clear (Clear) 01/10/20 11:18 Urine pH 5.0 (5.0-7.0) 01/10/20 11:18 Ur Specific [place] 1.014 (1.003-1.030) 01/10/20 11:18 Urine Protein 100 mg/dl mg/dL (Negative) 01/10/20 11:18 Urine Glucose (UA) 50 mg/dL (Negative) 01/10/20 11:18 Urine Ketones Neg mg/dL (Negative) 01/10/20 11:18 Urine Blood Neg (Negative) 01/10/20 11:18 Urine Nitrite Neg (Negative) 01/10/20 11:18 Urine Bilirubin Neg (Negative) 01/10/20 11:18 Urine Urobilinogen < 2.0 mg/dL (<2.0) 01/10/20 11:18 Ur Leukocyte Esterase Neg (Negative) 01/10/20 11:18 Urine WBC (Auto) < 1.0 /HPF (0.0-6.0) 01/10/20 11:18 Urine RBC (Auto) 1.0 /HPF (0.0-6.0) 01/10/20 11:18 Urine Opiates Screen Presumptive negative 01/10/20 11:18 Urine Methadone Screen Presumptive negative 01/10/20 11:18 Ur Barbiturates Screen Presumptive negative 01/10/20 11:18 Ur Phencyclidine Scrn Presumptive negative 01/10/20 11:18 Ur Amphetamines Screen Presumptive negative 01/10/20 11:18 U Benzodiazepines Scrn Presumptive negative 01/10/20 11:18 Urine Cocaine Screen Presumptive negative 01/10/20 11:18 U Marijuana (THC) Screen Presumptive negative 01/10/20 11:18 Drugs of Abuse Note Disclamer 01/10/20 11:18 Plasma/Serum Alcohol < 0.01 % (0-0.07) 01/10/20 11:00 Active Medications - Current Medications Current Medications: Generic Name Dose Route Start Last Admin Trade Name Freq PRN Reason Stop Dose Admin Acetaminophen 650 mg 01/10/20 18:11 Tylenol PO Q4H PRN Pain MILD(1-3)/Fever >100.5/MARTINEZ Amlodipine Besylate 10 mg 01/10/20 19:00 01/10/20 19:01 Amlodipine PO 10 mg QDAY YAEL Administration Lipase/Protease/Amylase 1 each 01/11/20 20:[address] 10,500 Unit PO AC YAEL Aspirin 81 mg 01/10/20 19:00 01/10/20 19:00 Halfprin Ec PO 81 mg QDAY YAEL Administration Atorvastatin Calcium 40 mg 01/10/20 22:00 01/10/20 22:47 Lipitor PO 40 mg QHS YAEL Administration Fluticasone Propionate 50 mcg 01/10/20 22:00 01/10/20 22:46 Flonase NS 50 mcg BID YAEL Administration Folic Acid 1 mg 01/10/20 19:00 01/10/20 19:06 Folvite PO 1 mg QDAY YAEL Administration Gabapentin 300 mg 01/10/20 22:00 01/11/20 06:38 Gabapentin PO 300 mg Q8HR YAEL Administration Hydromorphone HCl 0.5 mg 01/10/20 18:11 Dilaudid IV Q3H PRN Pain , Severe (7-10) Sodium Chloride 1,000 mls @ 75 mls/hr 01/10/20 18:15 01/10/20 18:43 Nacl 0.9% 1000 Ml IV 75 mls/hr DIRECT YAEL Administration Insulin Human Lispro 0 unit 01/10/20 19:00 01/11/20 06:38 Humalog SUB-Q 3 unit Q4HR YAEL Administration Protocol Lisinopril 20 mg 01/10/20 19:00 01/10/20 19:00 Zestril PO 20 mg QDAY YAEL Administration Metoprolol Tartrate 25 mg 01/10/20 22:00 01/10/20 22:47 Metoprolol PO 25 mg BID YAEL Administration Olanzapine 5 mg 01/10/20 22:00 01/10/20 22:48 Zyprexa PO 5 mg HS YAEL Administration Ondansetron HCl 4 mg 01/10/20 18:11 Zofran IV Q8H PRN Nausea And Vomiting Oxycodone/Acetaminophen 1 tab 01/10/20 18:08 01/11/20 01:59 Percocet 5/325 PO 1 tab Q6H PRN Administration Pain , Severe (7-10) Pantoprazole Sodium 40 mg 01/10/20 19:00 01/10/20 19:06 Protonix PO 40 mg QDAY YAEL Administration Sodium Chloride 10 ml 01/10/20 22:00 01/10/20 22:49 Sodium Chloride Flush Syringe 10 Ml IV 10 ml BID YAEL Administration Sodium Chloride 10 ml 01/10/20 18:11 Sodium Chloride Flush Syringe 10 Ml IV PRN PRN LINE FLUSH Thiamine HCl 100 mg 01/10/20 19:00 01/10/20 19:07 Vitamin B-1 PO 100 mg QDAY YAEL Administration
--- NOTE | 2020-01-11 07:46 | Discharge Summary ---
Providers - Providers Date of Admission: 01/10/20 13:08 Attending physician: MYRON ADORNO MD [facility] Reason for admission: Hypoglycemia Condition: Stable Hospital course: 54 years old male with history of type 2 IDDM brought to the emergency room from a local pharmacy after patient passed out. EMS stated that his initial blood glucose was 28. Patient received dextrose 50 and patient started waking up. Patient now is alert oriented x3 and able to answer questions appropriately. Patient stated that he is taking Humalog 10 to 15 units before meal and also Levemir 40 units at night. Patient denied taking any anti-hyperglycemic oral medication. Patient also denied any chest pain, shortness of breath, abdominal pain, nausea or vomiting. No headache weakness numbness or tingling sensation. Did not eat adequately last night * Patient symptoms are improved he was started on D5W with blood sugar going up and subsequently cut back down to normal saline a.m. blood sugar was around 65 but this morning had risen up to 20. A1c is above 10. Patient will continue on insulin but have a lower dosage and will keep blood sugar diary for the PCP to adjust. * Initial chest x-ray read by me was without any acute pathology will defer to patient's PCP to review official read when it is available. * Electrolytes were corrected\ * On careful discussion with the patient today he had not picked up his prior prescriptions. This was renewed. He states he did not pick it up due to insurance conflict. He understands the changes with his medication at this time. Acute metabolic encephalopathy due to hypoglycemia Hypoglycemia Syncope secondary to hypoglycemia Diabetes mellitus Hypokalemia Pancreatic insufficiency Cont pancreatic enzymes HLD (hyperlipidemia) Cont statins HTN (hypertension) Cont antihypertensives Bipolar 1 disorder On Zyprexa GERD (gastroesophageal reflux disease) Current Visit: No Status: Chronic Qualifiers: Esophagitis presence: without esophagitis Qualified Code(s): K21.9 - Gastro-esophageal reflux disease without esophagitis Plan to address problem: On PPIs Disposition: TO HOME OR SELFCARE Time spent for discharge: 35 mins Core Measure Documentation - Palliative Care Palliative Care/ Comfort Measures: Not Applicable - Core Measures Any of the following diagnoses?: none Exam - Physical Exam Narrative exam: VITAL SIGNS: Reviewed. GENERAL: The patient appears normally developed, Vital signs as documented. HEAD: No signs of head trauma. EYES: Pupils are equal. Extraocular motions intact. EARS: Hearing grossly intact. MOUTH: Oropharynx is normal. NECK: No adenopathy, no JVD. CHEST: Chest with clear breath sounds bilaterally. No wheezes, rales, or rhonchi. CARDIAC: Regular rate and rhythm. S1 and S2, without murmurs, gallops, or rubs. VASCULAR: No Edema. Peripheral pulses normal and equal in all extremities. ABDOMEN: Soft, non tender and non distended. No rebound or guarding, and no masses palpated. Bowel Sounds normal. MUSCULOSKELETAL: Good range of motion of all major joints. Extremities without clubbing, cyanosis or edema. NEUROLOGIC EXAM: Alert and oriented x 3 No focal sensory or strength deficits. Speech normal. Follows commands. PSYCHIATRIC: Mood normal. SKIN: Old healed excoriation in bilateral lower extremity otherwise detial exam as documented in skin assessment - Constitutional Vitals: Temp Pulse Resp BP Pulse Ox 98.8 F 67 16 93/63 98 01/11/20 04:19 01/11/20 04:19 01/11/20 04:19 01/11/20 04:19 01/11/20 04:19 Plan Activity: advance as tolerated, fall precautions Diet: diabetic Special Instructions: record daily weights, record daily BP diary, record blood sugar diary Follow up with: [place] [Primary Care Provider] - 3-5 Days Prescriptions: Insulin Detemir [Levemir VIAL] 16 unit SQ QHS #100 ml AtorvaSTATin [Lipitor] 40 mg PO QHS #30 tablet amLODIPine 10 mg PO QDAY #30 tablet Fluticasone [Flonase] 50 mcg NS BID #1 bottle Folic Acid [Folvite] 1 mg PO QDAY #30 tablet Aspirin EC [Halfprin EC] 81 mg PO QDAY #30 tablet Insulin Regular, Human [HumuLIN R] 0 unit SQ AC #1 vial Metoprolol [Lopressor TAB] 25 mg PO BID #60 tablet Pantoprazole [Protonix TAB] 40 mg PO QDAY #30 tablet Thiamine [Vitamin B-1] 100 mg PO QDAY #30 tablet lisinopriL [Zestril TAB] 20 mg PO QDAY #30 tab OLANzapine [ZyPREXA] 5 mg PO HS #30 tablet
[2020-01-11 07:47] LABS: Basophils % (Auto) 0.5 % (0.0-1.8); Eosinophils # (Auto) 0.1 K/mm3 (0.0-0.4); Eosinophils % (Auto) 1.4 % (0.0-4.3); Hematocrit 31.3 % (35.5-45.6); Hemoglobin 10.6 gm/dl (11.8-15.2); Lymphocytes # (Auto) 1.5 K/mm3 (1.2-5.4); Mean Corpuscular HGB Conc 34 % (32-34); Mean Corpuscular Volume 91 fl (84-94); Monocytes # (Auto) 0.3 K/mm3 (0.0-0.8); Monocytes % (Auto) 7.9 % (0.0-7.3); Platelet Count 149 K/mm3 (140-440); Red Blood Count 3.43 M/mm3 (3.65-5.03); Red Cell Distribution Width 13.1 % (13.2-15.2)
[2020-01-11 08:09] LABS: BUN/Creatinine Ratio 11; Blood Urea Nitrogen 12 mg/dL (9-20); Calcium 8.3 mg/dL (8.4-10.2); Hemolysis Index 3
[2020-01-11 08:13] LABS: Alanine Aminotransferase 51 units/L (7-56); Albumin 3.3 g/dL (3.9-5); BUN/Creatinine Ratio 10; Blood Urea Nitrogen 11 mg/dL (9-20); Calcium 8.4 mg/dL (8.4-10.2); Hemolysis Index 4
[2020-01-11] MEDS: LISINOPRIL 20 MG TAB PO SCH (10:36)
[2020-01-11] MEDS: FOLIC ACID 1 MG TAB PO SCH (10:36)
[2020-01-11] MEDS: amLODIPine 10 MG TAB PO SCH (10:37)
[2020-01-11] MEDS: THIAMINE 100 MG TAB PO SCH (10:37)
[2020-01-11] MEDS: PANTOPRAZOLE 40 MG TAB PO SCH (10:37)
[2020-01-11] MEDS: FLUTICASONE PROPIONATE NASAL SPRAY 16 GM NS SCH (10:37)
[2020-01-11] MEDS: ASPIRIN EC 81 MG TAB PO SCH (10:37)
[2020-01-11] MEDS: METOPROLOL TARTRATE 25 MG TAB PO SCH (10:37)
[2020-01-11 14:18] VITALS: BP 141/92
[2020-01-11] MEDS ORDERED: LIPASE 10,500/PROTEASE 25,000/AMYLASE 43,750 (UNITS) DR CAP PO SCH (20:00)
--- NOTE | 2020-01-12 15:50 | XRay Report ---
CHEST 1 VIEW INDICATION: Lightheadedness/Dizziness. COMPARISON: 06/21/2019 FINDINGS: Support devices: None. Heart: Within normal limits. Lungs/Pleura: No acute air space or interstitial disease. Additional findings: None. IMPRESSION: No acute findings. Signer Name: Madhav Hernandez Jr, MD Signed: 01/10/2020 10:57 AM Workstation Name: [id number]
== END 2020-01-11 14:05 | disposition home or self-care (01) ==
LOC: ED 10:11 → 3A 13:08
PROVIDERS: ADMIT Internal Medicine; ATTEND Internal Medicine
DX: G93.41 Metabolic encephalopathy (principal); E11.649 Type 2 diabetes mellitus with hypoglycemia without coma; E87.6 Hypokalemia; K86.89 Other specified diseases of pancreas; E78.5 Hyperlipidemia, unspecified; I10 Essential (primary) hypertension; F31.9 Bipolar disorder, unspecified; K21.9 Gastro-esophageal reflux disease without esophagitis; R41.82 Altered mental status, unspecified; F17.200 Nicotine dependence, unspecified, uncomplicated; Z98.890 Other specified postprocedural states; Z79.82 Long term (current) use of aspirin; Z79.4 Long term (current) use of insulin
CPT/HCPCS: 36415; 71045; 80048; 80053; 80076; 80307; 81001; 82962; 83036; 84484; 85025; 87116; 93005; 93010; 96365; 96366; 96372; 96375; 96376; 99291; A9270; G0378; J3480; J7030; 80320; G0480; J1815

== ENCOUNTER 2020-03-22 00:54 | Observation (INO) | payer MEDICAID ==
--- NOTE | 2020-03-22 01:28 | Emergency Department Report ---
HPI - General Chief Complaint: Hyperglycemia Time Seen by Provider: 03/22/20 01:12 - HPI HPI: 54-year-old male presents to the emergency department with the complaint of suicidal ideations. He has a history of depression, PTSD, anxiety, and there is some previous records that state the patient has a history of bipolar disorder. The patient has been off of his psychiatric medications for the past 3 to 4 months. He does not have any particular plan as to how he would harm himself but he keeps repeating that he does not want to live. The patient has a medical history of insulin-dependent diabetes, peripheral vascular disease, peripheral arterial disease, hypertension, GERD. 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 Patient is found to have hyperglycemia with an Accu-Chek of greater than 500. He is on Levemir and Humalog but admits to some noncompliance with this medication. He does not have a primary care physician. Patient admits to drinking "2 drinks" earlier in the evening but denies any illicit drug use. ED Past Medical Hx - Past Medical History Hx Hypertension: Yes Hx Diabetes: Yes Hx Psychiatric Treatment: Yes (bipolar, PTSD, anxiety, ETOH abuse) Additional medical history: PAD, Pancreatitis, Neuropathy - Surgical History Additional Surgical History: Bilateral Inguinal Repair., left partial foot amputee - Social History Smoking Status: Never Smoker Substance Use Type: None - Medications Home Medications: Home Medications Medication Instructions Recorded Confirmed Last Taken Type Pancrechinoe 10,500 Unit Cap 10,500 unit PO TID 02/28/19 03/22/20 Unknown History Neurontin 300 mg PO TID #14 12/10/19 03/22/20 Unknown Rx Fluticasone [Flonase] 1 spray NS BID 01/05/20 03/22/20 Unknown History oxyCODONE /ACETAMINOPHEN [Percocet 1 tab PO Q6H PRN #12 tablet 01/07/20 03/22/20 Unknown Rx 5/325 mg] Aspirin EC [Halfprin EC] 81 mg PO QDAY #30 tablet 01/11/20 03/22/20 Unknown Rx AtorvaSTATin [Lipitor] 40 mg PO QHS #30 tablet 01/11/20 03/22/20 Unknown Rx Fluticasone [Flonase] 50 mcg NS BID #1 bottle 01/11/20 03/22/20 Unknown Rx Folic Acid [Folvite] 1 mg PO QDAY #30 tablet 01/11/20 03/22/20 Unknown Rx Insulin Detemir [Levemir VIAL] 16 unit SQ QHS #100 ml 01/11/20 03/22/20 Unknown Rx Insulin Regular, Human [HumuLIN R] 0 unit SQ AC #1 vial 01/11/20 03/22/20 Unknown Rx Metoprolol [Lopressor TAB] 25 mg PO BID #60 tablet 01/11/20 03/22/20 Unknown Rx OLANzapine [ZyPREXA] 5 mg PO HS #30 tablet 01/11/20 03/22/20 Unknown Rx Pantoprazole [Protonix TAB] 40 mg PO QDAY #30 tablet 01/11/20 03/22/20 Unknown Rx Thiamine [Vitamin B-1] 100 mg PO QDAY #30 tablet 01/11/20 03/22/20 Unknown Rx amLODIPine 10 mg PO QDAY #30 tablet 01/11/20 03/22/20 Unknown Rx lisinopriL [Zestril TAB] 20 mg PO QDAY #30 tab 01/11/20 03/22/20 Unknown Rx ED Review of Systems ROS: Stated complaint: SUICIDAL THOUGHTS/HIGH BLOOD SUGAR Other details as noted in HPI Comment: All other systems reviewed and negative Constitutional: denies: chills, fever Eyes: denies: eye pain, vision change ENT: denies: ear pain, throat pain Respiratory: denies: cough, shortness of breath Cardiovascular: denies: chest pain, palpitations Gastrointestinal: denies: abdominal pain, vomiting Genitourinary: denies: dysuria, discharge Musculoskeletal: arthralgia (Chronic left foot pain). denies: back pain Skin: denies: rash, lesions Neurological: denies: headache, weakness Psychiatric: suicidal thoughts. denies: auditory hallucinations, visual hallucinations Physical Exam - Physical Exam Vital Signs: Vital Signs 03/22/20 01:17 Temperature 97.1 F L Pulse Rate 98 H Respiratory 18 Rate Blood Pressure 154/81 [Right] O2 Sat by Pulse 98 Oximetry Physical Exam: GENERAL: The patient is well-developed well-nourished. HENT: Normocephalic. Atraumatic. Patient has moist mucous membranes. EYES: Extraocular motions are intact. NECK: Supple. Trachea is midline. CHEST/LUNGS: Clear to auscultation. There is no respiratory distress noted. HEART/CARDIOVASCULAR: Regular. There is mild tachycardia. ABDOMEN: Abdomen is soft, nontender. Patient has normal bowel sounds. There is no abdominal distention. SKIN: Skin is warm and dry. NEURO: The patient is awake, alert, and oriented. The patient is cooperative. The patient has no focal neurologic deficits. Normal speech. MUSCULOSKELETAL: There is no tenderness or deformity. There is no limitation range of motion. ED Course Vital Signs 03/22/20 01:17 Temperature 97.1 F L Pulse Rate 98 H Respiratory 18 Rate Blood Pressure 154/81 [Right] O2 Sat by Pulse 98 Oximetry ED Medical Decision Making - Lab Data Result diagrams: 03/22/20 01:29 03/22/20 01:29 - EKG Data -: EKG Interpreted by Me EKG shows normal: sinus rhythm, axis, intervals (Prolonged QTc intervals), QRS complexes, ST-T waves Rate: normal - EKG Data When compared to previous EKG there are: no significant change Interpretation: unchanged when compared t (01/10/20) - Medical Decision Making This patient presents with the complaint of suicidal ideations and for this reason was made a 1013. However the patient has not been compliant with his insulin and presents with a blood sugar of 563. There was no significant elevation in the anion gap and the patient is not producing serum ketones and therefore he does not appear in diabetic ketoacidosis. He was given some IV fluid resuscitation and IV insulin. On top of the hyperglycemia, the patient also presents with some acute kidney injury and lactic acidosis. Patient does have a venous acidosis. No obvious source of infection was found. However given the lab abnormalities, will be difficult to clear this patient for psychiatric placement. He will be admitted to the hospital for further evaluation and treatment and was accepted for admission by the hospitalist, Dr. Agarwal. Critical Care Time: No Critical care attestation.: If time is entered above; I have spent that time in minutes in the direct care of this critically ill patient, excluding procedure time. ED Disposition Clinical Impression: Alcohol abuse, Lactic acidosis, Metabolic acidosis, Suicidal ideations, NARAYAN (acute kidney injury) Uncontrolled diabetes mellitus Qualifiers: Diabetes mellitus type: type 1 Glycemic state: with hyperglycemia Qualified Code(s): E10.65 - Type 1 diabetes mellitus with hyperglycemia Alcohol intoxication Qualifiers: Complication of substance-induced condition: uncomplicated Qualified Code(s): F10.920 - Alcohol use, unspecified with intoxication, uncomplicated Disposition: DC-09 OP ADMIT IP TO THIS HOSP Is pt being admited?: Yes Condition: Fair Time of Disposition: 06:00
[2020-03-22 01:51] LABS: Basophils % (Auto) 0.5 % (0.0-1.8); Eosinophils % (Auto) 0.5 % (0.0-4.3); Hematocrit 35.1 % (35.5-45.6); Hemoglobin 12.1 gm/dl (11.8-15.2); Lymphocytes # (Auto) 1.5 K/mm3 (1.2-5.4); Lymphocytes % (Auto) 30.1 % (13.4-35.0); Mean Corpuscular HGB Conc 34 % (32-34); Mean Corpuscular Volume 96 fl (84-94); Monocytes # (Auto) 0.3 K/mm3 (0.0-0.8); Monocytes % (Auto) 5.3 % (0.0-7.3); Platelet Count 209 K/mm3 (140-440); Red Blood Count 3.66 M/mm3 (3.65-5.03); Red Cell Distribution Width 15.3 % (13.2-15.2)
[2020-03-22] MEDS ORDERED: INSULIN REGULAR, HUMAN 100 UNITS/1 ML IV ONE (02:13)
[2020-03-22] MEDS ORDERED: SODIUM CHLORIDE 0.9% 1000 ML 1,000 ML IV ONE ×3 (02:13→10:30)
[2020-03-22 02:19] LABS: Bilirubin,Urine NEG (Negative); Blood,Urine NEG (Negative); Color,Urine Yellow (Yellow); Mucus,Urine FEW /HPF; Urobilinogen,Urine < 2.0 mg/dL (<2.0)
[2020-03-22 02:24] LABS: Amphetamine Screen,Urine PRESUMPTIVE NEGATIVE; Benzodiazepines Screen,Urine PRESUMPTIVE NEGATIVE; Cannabinoid Screen,Urine PRESUMPTIVE NEGATIVE; Cocaine Screen,Urine PRESUMPTIVE NEGATIVE; Methadone Screen,Urine PRESUMPTIVE NEGATIVE; Opiate Screen,Urine PRESUMPTIVE NEGATIVE
[2020-03-22] MEDS ORDERED: MULTIVITAMINS ,THERAPEUTIC TAB PO ONE (02:26)
[2020-03-22] MEDS ORDERED: THIAMINE 100 MG in SODIUM CHLORIDE 0.9% 50 ML IV ONE (02:27)
[2020-03-22] MEDS ORDERED: MORPHINE 2 MG/1 ML INJ IV PRN (06:22)
[2020-03-22] MEDS ORDERED: DEXTROSE 50% IN WATER (25GM) 50 ML SYRINGE IV PRN (06:22)
[2020-03-22] MEDS ORDERED: ONDANSETRON 4 MG/2 ML INJ IV PRN (06:22)
[2020-03-22] MEDS ORDERED: ACETAMINOPHEN 325 MG TAB PO PRN (06:22)
[2020-03-22] MEDS ORDERED: MAGNESIUM HYDROXIDE (MOM) ORAL LIQD UDC PO PRN (06:22)
--- NOTE | 2020-03-22 06:35 | History and Physical Report ---
History of Present Illness Date of examination: 03/22/20 Date of admission: 03/22/2020 Chief complaint: Suicidal ideation History of present illness: 54-year-old male with known history of depression, PTSD and anxiety presenting with a complaint of suicidal ideations. He has been off his psychiatric medication for the past 3 to 4 months. Indicates he feels like ending his life on a daily basis. He does not have any specific plans as to how he hopes to harm himself but just indicates that he does not want to live. Indicates he just has so many medical problems that depresses him. He had a partial left foot amputation about 7 months ago. He has not been quite compliant with his medications. He also admits that he had some alcohol prior to reporting to the emergency room today Evaluation in the emergency room reveals hyperglycemia with blood glucose greater than 500. He was given some insulin and IV fluid in the emergency room. Blood sugar improved to the 200s. Past History Past Medical History: diabetes, other (Bipolar disorder, anxiety, PTSD) Past Surgical History: hernia repair (Bilateral inguinal hernia repair), Other (Left partial foot amputation) Social history: alcohol abuse. denies: smoking Family history: no significant family history Medications and Allergies Allergies Allergy/AdvReac Type Severity Reaction Status Date / Time No Known Allergies Allergy Verified 03/22/20 01:11 Home Medications Medication Instructions Recorded Confirmed Last Taken Type Pancreaze Dr 10,500 Unit Cap 10,500 unit PO TID 02/28/19 01/10/20 Unknown History Neurontin 300 mg PO TID #14 12/10/19 01/10/20 Unknown Rx Fluticasone [Flonase] 1 spray NS BID 01/05/20 01/10/20 Unknown History oxyCODONE /ACETAMINOPHEN [Percocet 1 tab PO Q6H PRN #12 tablet 01/07/20 01/10/20 Unknown Rx 5/325 mg] Aspirin EC [Halfprin EC] 81 mg PO QDAY #30 tablet 01/11/20 Unknown Rx AtorvaSTATin [Lipitor] 40 mg PO QHS #30 tablet 01/11/20 Unknown Rx Fluticasone [Flonase] 50 mcg NS BID #1 bottle 01/11/20 Unknown Rx Folic Acid [Folvite] 1 mg PO QDAY #30 tablet 01/11/20 Unknown Rx Insulin Detemir [Levemir VIAL] 16 unit SQ QHS #100 ml 01/11/20 Unknown Rx Insulin Regular, Human [HumuLIN R] 0 unit SQ AC #1 vial 01/11/20 Unknown Rx Metoprolol [Lopressor TAB] 25 mg PO BID #60 tablet 01/11/20 Unknown Rx OLANzapine [ZyPREXA] 5 mg PO HS #30 tablet 01/11/20 Unknown Rx Pantoprazole [Protonix TAB] 40 mg PO QDAY #30 tablet 01/11/20 Unknown Rx Thiamine [Vitamin B-1] 100 mg PO QDAY #30 tablet 01/11/20 Unknown Rx amLODIPine 10 mg PO QDAY #30 tablet 01/11/20 Unknown Rx lisinopriL [Zestril TAB] 20 mg PO QDAY #30 tab 01/11/20 Unknown Rx Active Meds: Active Medications Acetaminophen (Tylenol) 650 mg PO Q4H PRN PRN Reason: Pain MILD(1-3)/Fever >100.5/MARTINEZ Dextrose (D50w (25gm) Syringe) 50 ml IV Q30MIN PRN; Protocol PRN Reason: Hypoglycemia Dextrose (D50w (25gm) Syringe) 50 ml IV Q30MIN PRN; Protocol PRN Reason: Hypoglycemia Sodium Chloride (Nacl 0.9% 1000 Ml) 1,000 mls @ 125 mls/hr IV DIRECT YAEL Insulin Human Lispro (Humalog) 0 unit SUB-Q ACHS YAEL; Protocol Magnesium Hydroxide (Milk Of Magnesia) 30 ml PO Q4H PRN PRN Reason: Constipation Morphine Sulfate (Morphine) 2 mg IV Q4H PRN PRN Reason: Pain, Moderate (4-6) Ondansetron HCl (Zofran) 4 mg IV Q8H PRN PRN Reason: Nausea And Vomiting Sodium Chloride (Sodium Chloride Flush Syringe 10 Ml) 10 ml IV BID YAEL Sodium Chloride (Sodium Chloride Flush Syringe 10 Ml) 10 ml IV PRN PRN PRN Reason: LINE FLUSH Review of Systems Constitutional: no fever, no chills Ears, nose, mouth and throat: no headache, no vertigo Cardiovascular: no chest pain, no palpitations Respiratory: no cough, no shortness of breath Gastrointestinal: no abdominal pain, no nausea, no vomiting, no diarrhea Genitourinary Male: no dysuria, no hematuria Musculoskeletal: no neck pain, no low back pain Integumentary: no rash, no pruritis Neurological: no headaches, no confusion Psychiatric: anxiety, suicidal ideation, depression Exam - Constitutional Vitals: Temp Pulse Resp BP Pulse Ox 97.1 F L 98 H 18 118/83 97 03/22/20 01:17 03/22/20 01:17 03/22/20 01:17 03/22/20 06:16 03/22/20 06:16 General appearance: Present: no acute distress, well-nourished - EENT Eyes: Present: PERRL, EOM intact ENT: hearing intact, clear oral mucosa, dentition normal - Neck Neck: Present: supple, normal ROM - Respiratory Respiratory effort: normal Respiratory: bilateral: CTA - Cardiovascular Rhythm: regular Heart Sounds: Present: S1 & S2 - Extremities Extremities: no ischemia, pulses intact, No edema, Full ROM, abnormal (Left partial foot amputation with scab on healing wound) Peripheral Pulses: within normal limits - Abdominal General gastrointestinal: Present: soft, non-tender, non-distended, normal bowel sounds - Integumentary Integumentary: Present: clear, warm, dry - Musculoskeletal Musculoskeletal: strength equal bilaterally - Psychiatric Psychiatric: cooperative, depressed - Neurologic Neurologic: CNII-XII intact, moves all extremities Results - Labs CBC & Chem 7: 03/22/20 01:29 03/22/20 01:29 Labs: Abnormal lab results 03/22/20 03/22/20 03/22/20 Range/Units 01:20 01:29 01:29 Hct 35.1 L (35.5-45.6) % MCV 96 H (84-94) fl MCH 33 H (28-32) pg RDW 15.3 H (13.2-15.2) % VBG pH (7.320-7.420) Potassium 3.5 L (3.6-5.0) mmol/L Carbon Dioxide 21 L (22-30) mmol/L Creatinine 1.8 H (0.8-1.5) mg/dL Glucose 563 H* (75-100) mg/dL POC Glucose > 500 H (70-105) Lactic Acid (0.7-2.0) mmol/L Calcium 8.0 L (8.4-10.2) mg/dL Alkaline Phosphatase 218 H (35-129) units/L Total Protein 5.7 L (6.3-8.2) g/dL Salicylates (2.8-20.0) mg/dL Acetaminophen (10.0-30.0) ug/mL Plasma/Serum Alcohol (0-0.07) % 03/22/20 03/22/20 03/22/20 Range/Units 01:29 01:29 01:29 Hct (35.5-45.6) % MCV (84-94) fl MCH (28-32) pg RDW (13.2-15.2) % VBG pH 7.226 L (7.320-7.420) Potassium (3.6-5.0) mmol/L Carbon Dioxide (22-30) mmol/L Creatinine (0.8-1.5) mg/dL Glucose (75-100) mg/dL POC Glucose (70-105) Lactic Acid (0.7-2.0) mmol/L Calcium (8.4-10.2) mg/dL Alkaline Phosphatase (35-129) units/L Total Protein (6.3-8.2) g/dL Salicylates < 0.3 L (2.8-20.0) mg/dL Acetaminophen (10.0-30.0) ug/mL Plasma/Serum Alcohol 0.30 H (0-0.07) % 03/22/20 03/22/20 03/22/20 Range/Units 01: 02:44 03:34 Hct (35.5-45.6) % MCV (84-94) fl MCH (28-32) pg RDW (13.2-15.2) % VBG pH (7.320-7.420) Potassium (3.6-5.0) mmol/L Carbon Dioxide (22-30) mmol/L Creatinine (0.8-1.5) mg/dL Glucose (75-100) mg/dL POC Glucose 356 H (70-105) Lactic Acid 3.30 H* (0.7-2.0) mmol/L Calcium (8.4-10.2) mg/dL Alkaline Phosphatase (35-129) units/L Total Protein (6.3-8.2) g/dL Salicylates (2.8-20.0) mg/dL Acetaminophen < 5.0 L (10.0-30.0) ug/mL Plasma/Serum Alcohol (0-0.07) % 03/22/20 03/22/20 Range/Units 05:46 06:16 Hct (35.5-45.6) % MCV (84-94) fl MCH (28-32) pg RDW (13.2-15.2) % VBG pH (7.320-7.420) Potassium (3.6-5.0) mmol/L Carbon Dioxide (22-30) mmol/L Creatinine (0.8-1.5) mg/dL Glucose (75-100) mg/dL POC Glucose 264 H (70-105) Lactic Acid 3.40 H* (0.7-2.0) mmol/L Calcium (8.4-10.2) mg/dL Alkaline Phosphatase (35-129) units/L Total Protein (6.3-8.2) g/dL Salicylates (2.8-20.0) mg/dL Acetaminophen (10.0-30.0) ug/mL Plasma/Serum Alcohol (0-0.07) % Assessment and Plan - Patient Problems (1) Uncontrolled diabetes mellitus Current Visit: Yes Status: Acute Plan to address problem: Patient has been admitted and placed on sliding scale insulin. Will monitor Accu-Cheks closely. Compliance is been encouraged. We also place consult to dietitian for evaluation. (2) NARAYAN (acute kidney injury) Current Visit: Yes Status: Acute Plan to address problem: Will place on IV fluid and monitor BUN and creatinine. (3) Metabolic acidosis Current Visit: Yes Status: Acute Plan to address problem: Possibly secondary to uncontrolled diabetes mellitus and associated alcohol abuse. We will continue on IV fluid and monitor chemistry. (4) Suicidal ideations Current Visit: Yes Status: Acute Plan to address problem: Patient has been placed on suicide precautions. We will place a consult to psychiatry for further evaluation and recommendation. We will resume routine home medications once reconciled. (5) DVT prophylaxis Current Visit: No Status: Acute Plan to address problem: Patient placed on subcutaneous heparin. (6) Full code status Current Visit: Yes Status: Acute
[2020-03-22] MEDS: SODIUM CHLORIDE 0.9% 1000 ML 1,000 ML IV SCH ×2 (07:12→12:54)
[2020-03-22] MEDS: INSULIN LISPRO 100 UNIT/ML SUB-Q SCH ×4 (08:07→21:05)
--- NOTE | 2020-03-22 10:02 | Consultation ---
History of Present Illness - Reason for Consult Consult date: 03/22/20 Reason for consult: Suicidal, depresion - Chief Complaint Chief complaint: Suicidal ideation - History of Present Psychiatric Illness Gaurang Mello is a 54y/o male patient who was admitted for suicidal ideation. During my interview with the patient this morning, he was just brought to the floor from the ED. He is sitting on the bed. He makes poor eye contact. He appears down and is tearful. He is a/o x 3. He verbalizes being suicidal "every day." When asking the patient if he had a plan to harm himself, he replied, "sometimes it changes. If I slit my throat aint no way they can save me." He says he has attempted suicide "twice in the past." He says he is "depressed" and "been off my meds." The patient says he was diagnosed with "PTSD, Bipolar and Depression." He says he has taken "several meds" but could only remember "prozac and olanzapine." The patient says "I've been off my meds for about four months." He says he "hears voices telling me to kill myself and telling me how worthless I am." He also states, "sometimes I have conversations with people who are not there." He denies any illicit drug use, but admits to "drinking a 1/2 pint of v odka a day but recently cut back." He says his last drink was "yesterday." He says he "smokes a pack of cigarets a day." PAST PSYCHIATRIC HISTORY: Diagnoses: PTSD, Bipolar, Depression Suicide attempts or Self-harm behavior: twice Prior psychiatric hospitalizations: twice Substance Abuse history: alcohol and nicotine Previous psychiatric medications tried: prozac and olanzapoine Outpatient treatment: "not in months" PAST MEDICAL HISTORY: None reported Family Psychiatric History: None reported or documented SOCIAL HISTORY Current living status: Lives with daughter Highest level of education: GED Employment Status: Disabled Marital status: Legal history: Yes History of abuse: alcohol REVIEW OF SYSTEMS Constitutional: Negative for weight loss ENT: Negative for stridor Respiratory: Negative for cough or hemoptysis All other systems reviewed and are negative MENTAL STATUS EXAMINATION General Appearance: Dressed appropriately Behavior: Cooperative. Tearful. Poor eye contact Mood: "depressed" Affect: congruent with stated mood Speech: Normal tone and pace Thought Process: Goal oriented Thought Content: Suicidal Ideation: Yes Homicidal Ideation: Denies Hallucinations: Auditory Delusions: None elicited Insight and Judgment: Limited Memory/Cognition: Limited Assessment Bipolar Disorder, Severe, Current Episode Depressed with Psychotic Features Plan MEDICATIONS: Assess CIWA Thiamine 100mg po qd Folic 1mg po qd Seroquel 25mg po BID Trazodone 50mg po qhs Melatonin 5mg po qhs prn Nicotine patch 21mg po daily Prozac 10mg po daily Geodon 20mg IM q6h prn agitation Risks, benefits and alternatives of medications discussed with the patient, questions answered and consent obtained from patient. PSYCHOTHERAPY: Supportive psychotherapy provided MEDICAL: Per primary team DELIRIUM PRECAUTIONS: Please re-orient patient frequently, keep lights on during the day, and minimize benzodiazepines and opiates as these medications could worsen patient's confusion. CEREAL MILLER: Per Medical team. DISPOSITION: The patient meets the requirement for acute inpatient psychiatric hospitalization at this time. He may transfer to the master-psych floor once medically clear. The treatment plan was explained to the patient, including benefits and side effects of medications, he verbalizes understanding and agreement of plan. Will continue to follow the patient. Thank you for the consult. Please contact with any questions or concerns. Medications and Allergies Allergies Allergy/AdvReac Type Severity Reaction Status Date / Time No Known Allergies Allergy Verified 03/22/20 01:11 Home Medications Medication Instructions Recorded Confirmed Last Taken Type Pancreaze 10,500 Unit Cap 10,500 unit PO TID 02/28/19 03/22/20 Unknown Histo ry Neurontin 300 mg PO TID #14 12/10/19 03/22/20 Unknown Rx Fluticasone [Flonase] 1 spray NS BID 01/05/20 03/22/20 Unknown History oxyCODONE /ACETAMINOPHEN [Percocet 1 tab PO Q6H PRN #12 tablet 01/07/20 03/22/20 Unknown Rx 5/325 mg] Aspirin EC [Halfprin EC] 81 mg PO QDAY #30 tablet 01/11/20 03/22/20 Unknown Rx AtorvaSTATin [Lipitor] 40 mg PO QHS #30 tablet 01/11/20 03/22/20 Unknown Rx Fluticasone [Flonase] 50 mcg NS BID #1 bottle 01/11/20 03/22/20 Unknown Rx Folic Acid [Folvite] 1 mg PO QDAY #30 tablet 01/11/20 03/22/20 Unknown Rx Insulin Detemir [Levemir VIAL] 16 unit SQ QHS #100 ml 01/11/20 03/22/20 Unknown Rx Insulin Regular, Human [HumuLIN R] 0 unit SQ AC #1 vial 01/11/20 03/22/20 Unknown Rx Metoprolol [Lopressor TAB] 25 mg PO BID #60 tablet 01/11/20 03/22/20 Unknown Rx OLANzapine [ZyPREXA] 5 mg PO HS #30 tablet 01/11/20 03/22/20 Unknown Rx Pantoprazole [Protonix TAB] 40 mg PO QDAY #30 tablet 01/11/20 03/22/20 Unknown Rx Thiamine [Vitamin B-1] 100 mg PO QDAY #30 tablet 01/11/20 03/22/20 Unknown Rx amLODIPine 10 mg PO QDAY #30 tablet 01/11/20 03/22/20 Unknown Rx lisinopriL [Zestril TAB] 20 mg PO QDAY #30 tab 01/11/20 03/22/20 Unknown Rx Active Meds: Active Medications Acetaminophen (Tylenol) 650 mg PO Q4H PRN PRN Reason: Pain MILD(1-3)/Fever >100.5/MARTINEZ Dextrose (D50w (25gm) Syringe) 50 ml IV Q30MIN PRN; Protocol PRN Reason: Hypoglycemia Sodium Chloride (Nacl 0.9% 1000 Ml) 1,000 mls @ 125 mls/hr IV DIRECT [facility] Last Admin: 03/22/20 07:12 Dose: 125 mls/hr Documented by: Insulin Human Lispro (Humalog) 0 unit SUB-Q ACHS [facility]; Protocol Last Admin: 03/22/20 08:07 Dose: 6 unit Documented by: Magnesium Hydroxide (Milk Of Magnesia) 30 ml PO Q4H PRN PRN Reason: Constipation Morphine Sulfate (Morphine) 2 mg IV Q4H PRN PRN Reason: Pain, Moderate (4-6) Ondansetron HCl (Zofran) 4 mg IV Q8H PRN PRN Reason: Nausea And Vomiting Sodium Chloride (Sodium Chloride Flush Syringe 10 Ml) 10 ml IV BID [facility] Sodium Chloride (Sodium Chloride Flush Syringe 10 Ml) 10 ml IV PRN PRN PRN Reason: LINE FLUSH Mental Status Exam - Vital signs Last Vital Signs Temp 97.1 F L 03/22/20 01:17 Pulse 98 H 03/22/20 01:17 Resp 16 03/22/20 09:14 BP 109/64 03/22/20 09:00 Pulse Ox 95 03/22/20 08:00 Results Result Diagrams: 03/22/20 01:29 03/22/20 01:29 Abnormal lab results 03/22/20 03/22/20 03/22/20 Range/Units 01: 01: 01:29 Hct 35.1 L (35.5-45.6) % MCV 96 H (84-94) fl MCH 33 H (28-32) pg RDW 15.3 H (13.2-15.2) % VBG pH (7.320-7.420) Potassium 3.5 L (3.6-5.0) mmol/L Carbon Dioxide 21 L (22-30) mmol/L Creatinine 1.8 H (0.8-1.5) mg/dL Glucose 563 H* (75-100) mg/dL POC Glucose > 500 H (70-105) Hemoglobin A1c (4-6) % Lactic Acid (0.7-2.0) mmol/L Calcium 8.0 L (8.4-10.2) mg/dL Alkaline Phosphatase 218 H (35-129) units/L Total Protein 5.7 L (6.3-8.2) g/dL Salicylates (2.8-20.0) mg/dL Acetaminophen (10.0-30.0) ug/mL Plasma/Serum Alcohol (0-0.07) % 03/22/20 03/22/20 03/22/20 Range/Units 01: 01: 01:29 Hct (35.5-45.6) % MCV (84-94) fl MCH (28-32) pg RDW (13.2-15.2) % VBG pH 7.226 L (7.320-7.420) Potassium (3.6-5.0) mmol/L Carbon Dioxide (22-30) mmol/L Creatinine (0.8-1.5) mg/dL Glucose (75-100) mg/dL POC Glucose (70-105) Hemoglobin A1c (4-6) % Lactic Acid (0.7-2.0) mmol/L Calcium (8.4-10.2) mg/dL Alkaline Phosphatase (35-129) units/L Total Protein (6.3-8.2) g/dL Salicylates < 0.3 L (2.8-20.0) mg/dL Acetaminophen (10.0-30.0) ug/mL Plasma/Serum Alcohol 0.30 H (0-0.07) % 03/22/20 03/22/20 03/22/20 Range/Units 01:29 02:44 03:34 Hct (35.5-45.6) % MCV (84-94) fl MCH (28-32) pg RDW (13.2-15.2) % VBG pH (7.320-7.420) Potassium (3.6-5.0) mmol/L Carbon Dioxide (22-30) mmol/L Creatinine (0.8-1.5) mg/dL Glucose (75-100) mg/dL POC Glucose 356 H (70-105) Hemoglobin A1c (4-6) % Lactic Acid 3.30 H* (0.7-2.0) mmol/L Calcium (8.4-10.2) mg/dL Alkaline Phosphatase (35-129) units/L Total Protein (6.3-8.2) g/dL Salicylates (2.8-20.0) mg/dL Acetaminophen < 5.0 L (10.0-30.0) ug/mL Plasma/Serum Alcohol (0-0.07) % 03/22/20 03/22/20 03/22/20 Range/Units 05:46 06:16 07:49 Hct (35.5-45.6) % MCV (84-94) fl MCH (28-32) pg RDW (13.2-15.2) % VBG pH (7.320-7.420) Potassium (3.6-5.0) mmol/L Carbon Dioxide (22-30) mmol/L Creatinine (0.8-1.5) mg/dL Glucose (75-100) mg/dL POC Glucose 264 H (70-105) Hemoglobin A1c (4-6) % Lactic Acid 3.40 H* 2.90 H* (0.7-2.0) mmol/L Calcium (8.4-10.2) mg/dL Alkaline Phosphatase (35-129) units/L Total Protein (6.3-8.2) g/dL Salicylates (2.8-20.0) mg/dL Acetaminophen (10.0-30.0) ug/mL Plasma/Serum Alcohol (0-0.07) % 03/22/20 03/22/20 Range/Units 07:49 08:16 Hct (35.5-45.6) % MCV (84-94) fl MCH (28-32) pg RDW (13.2-15.2) % VBG pH (7.320-7.420) Potassium (3.6-5.0) mmol/L Carbon Dioxide (22-30) mmol/L Creatinine (0.8-1.5) mg/dL Glucose (75-100) mg/dL POC Glucose 332 H (70-105) Hemoglobin A1c 9.3 H (4-6) % Lactic Acid (0.7-2.0) mmol/L Calcium (8.4-10.2) mg/dL Alkaline Phosphatase (35-129) units/L Total Protein (6.3-8.2) g/dL Salicylates (2.8-20.0) mg/dL Acetaminophen (10.0-30.0) ug/mL Plasma/Serum Alcohol (0-0.07) % All other labs normal.
[2020-03-22] MEDS ORDERED: ZIPRASIDONE MESYLATE 20 MG VIAL IM PRN (10:14)
[2020-03-22] MEDS: oxyCODONE /ACETAMINOPHEN 5-325MG TAB PO PRN ×2 (10:35→19:01)
[2020-03-22] MEDS: LIPASE 10,500/PROTEASE 25,000/AMYLASE 43,750 (UNITS) DR CAP PO SCH ×2 (11:24→16:11)
[2020-03-22] MEDS: NICOTINE 21 MG/24 HR PATCH TD SCH (11:24)
[2020-03-22] MEDS: FLUoxetine 10 MG TAB PO SCH (11:44)
[2020-03-22] MEDS: THIAMINE 100 MG TAB PO SCH (11:52)
--- NOTE | 2020-03-22 12:31 | Event Note ---
Date: 03/22/20 Patient is seen and examined, remains stable. Give 2 additional bolus of fluids. Wound care management. Monitor lactic acidosis. resume home meds, monitor for any withdrawal.
[2020-03-22] MEDS: GABAPENTIN 300 MG CAP PO SCH ×2 (13:04→21:06)
--- NOTE | 2020-03-22 13:35 | Consultation ---
History of Present Illness Consult date: 03/22/20 - History of present illness History of present illness: 54 yo diabetic male 1 year s/p a left Symes amputation. He continues to smoke at least 1 ppd and says his DM is not controlled. He c/o chronic bilateral foot pain. Past History Past Medical History: diabetes, other (Bipolar disorder, anxiety, PTSD) Past Surgical History: hernia repair (Bilateral inguinal hernia repair), Other (Left partial foot amputation) Social history: alcohol abuse. denies: smoking Family history: no significant family history Medications and Allergies Allergies Allergy/AdvReac Type Severity Reaction Status Date / Time No Known Allergies Allergy Verified 03/22/20 01:11 Home Medications Medication Instructions Recorded Confirmed Last Taken Type Pancreaze Dr 10,500 Unit Cap 10,500 unit PO TID 02/28/19 03/22/20 Unknown History Neurontin 300 mg PO TID #14 12/10/19 03/22/20 Unknown Rx Fluticasone [Flonase] 1 spray NS BID 01/05/20 03/22/20 Unknown History oxyCODONE /ACETAMINOPHEN [Percocet 1 tab PO Q6H PRN #12 tablet 01/07/20 03/22/20 Unknown Rx 5/325 mg] Aspirin EC [Halfprin EC] 81 mg PO QDAY #30 tablet 01/11/20 03/22/20 Unknown Rx AtorvaSTATin [Lipitor] 40 mg PO QHS #30 tablet 01/11/20 03/22/20 Unknown Rx Fluticasone [Flonase] 50 mcg NS BID #1 bottle 01/11/20 03/22/20 Unknown Rx Folic Acid [Folvite] 1 mg PO QDAY #30 tablet 01/11/20 03/22/20 Unknown Rx Insulin Detemir [Levemir VIAL] 16 unit SQ QHS #100 ml 01/11/20 03/22/20 Unknown Rx Insulin Regular, Human [HumuLIN R] 0 unit SQ AC #1 vial 01/11/20 03/22/20 Unknown Rx Metoprolol [Lopressor TAB] 25 mg PO BID #60 tablet 01/11/20 03/22/20 Unknown Rx OLANzapine [ZyPREXA] 5 mg PO HS #30 tablet 01/11/20 03/22/20 Unknown Rx Pantoprazole [Protonix TAB] 40 mg PO QDAY #30 tablet 01/11/20 03/22/20 Unknown Rx Thiamine [Vitamin B-1] 100 mg PO QDAY #30 tablet 01/11/20 03/22/20 Unknown Rx amLODIPine 10 mg PO QDAY #30 tablet 01/11/20 03/22/20 Unknown Rx lisinopriL [Zestril TAB] 20 mg PO QDAY #30 tab 01/11/20 03/22/20 Unknown Rx Active Meds: Active Medications Acetaminophen (Tylenol) 650 mg PO Q4H PRN PRN Reason: Pain MILD(1-3)/Fever >100.5/MARTINEZ Amlodipine Besylate (Amlodipine) 10 mg PO QDAY [facility] Lipase/Protease/Amylase (Pancreaze Dr 10,500 Unit) 1 each PO AC [facility] Last Admin: 03/22/20 11:24 Dose: 1 each Documented by: Aspirin (Halfprin Ec) 81 mg PO QDAY [facility] Atorvastatin Calcium (Lipitor) 40 mg PO QHS [facility] Dextrose (D50w (25gm) Syringe) 50 ml IV Q30MIN PRN; Protocol PRN Reason: Hypoglycemia Fluoxetine HCl (Prozac) 10 mg PO QDAY [facility] Last Admin: 03/22/20 11:44 Dose: 10 mg Documented by: Fluticasone Propionate (Flonase) 50 mcg NS BID [facility] Folic Acid (Folvite) 1 mg PO QDAY [facility] Gabapentin (Gabapentin) 300 mg PO TID [facility] Last Admin: 03/22/20 13:04 Dose: 300 mg Documented by: Sodium Chloride (Nacl 0.9% 1000 Ml) 1,000 mls @ 125 mls/hr IV DIRECT [facility] Last Admin: 03/22/20 12:54 Dose: 125 mls/hr Documented by: Insulin Glargine (Lantus) 16 units SUB-Q QHS [facility] Insulin Human Lispro (Humalog) 0 unit SUB-Q ACHS [facility]; Protocol Last Admin: 03/22/20 11:49 Dose: 6 unit Documented by: Lisinopril (Zestril) 20 mg PO QDAY [facility] Magnesium Hydroxide (Milk Of Magnesia) 30 ml PO Q4H PRN PRN Reason: Constipation Melatonin (Melatonin) 5 mg PO QHS PRN PRN Reason: Sleep Metoprolol Tartrate (Metoprolol) 25 mg PO BID [facility] Morphine Sulfate (Morphine) 2 mg IV Q4H PRN PRN Reason: Pain, Moderate (4-6) Nicotine (Habitrol) 21 mg TD QDAY [facility] Last Admin: 03/22/20 11:24 Dose: 21 mg Documented by: Olanzapine (Zyprexa) 5 mg PO HS [facility] Ondansetron HCl (Zofran) 4 mg IV Q8H PRN PRN Reason: Nausea And Vomiting Oxycodone/Acetaminophen (Percocet 5/325) 1 tab PO Q6H PRN PRN Reason: Pain , Severe (7-10) Last Admin: 03/22/20 10:35 Dose: 1 tab Documented by: Pantoprazole Sodium (Protonix) 40 mg PO QDAY [facility] Quetiapine Fumarate (Seroquel) 25 mg PO BID [facility] Sodium Chloride (Sodium Chloride Flush Syringe 10 Ml) 10 ml IV BID [facility] Last Admin: 03/22/20 11:25 Dose: 10 ml Documented by: Sodium Chloride (Sodium Chloride Flush Syringe 10 Ml) 10 ml IV PRN PRN PRN Reason: LINE FLUSH Thiamine HCl (Vitamin B-1) 100 mg PO QDAY [facility] Last Admin: 03/22/20 11:52 Dose: 100 mg Documented by: Trazodone HCl (Desyrel) 50 mg PO QHS [facility] Ziprasidone (Geodon) 20 mg IM Q6H PRN PRN Reason: Agitation Review of Systems All systems: negative (none) Exam Vital Signs Pulse Ox 97 03/22/20 01:05 - General physical appearance Positive: well developed, well nourished, no distress - Eyes Positive: PERRL, normal occular movement - ENT Positive: normal pinna, normal nares, normal mucosa, no hearing loss, no congestion - Neck Positive: no masses, no bruits, trachea midline, no venous distension - Respiratory Positive: normal expansion, normal respiratory effort, clear to auscultation - Cardiovascular Rhythm: regular Heart Sounds: Present: S1 & S2. Absent: rub, click - Extremities Extremities: abnormal (There is a well healed left Symes amputation without skin breakdown or evidence of infection.) - Breasts Breasts: deferred - Abdomen Abdomen: Present: soft, bowel sounds normal. Absent: tender, distended Hernia: none - Genitourinary Male Genitourinary: deferred - Integumentary no rash, no growths, no abnormal pigmentation - Neurologic Neurologic: alert and oriented to time, place and person, motor strength and sensation are grossly intact - Musculoskeletal normal gait, normal posture Results - Labs 03/22/20 01:29 03/22/20 01:29 Abnormal lab results 03/22/20 03/22/20 03/22/20 Range/Units 01: 01:29 01:29 Hct 35.1 L (35.5-45.6) % MCV 96 H (84-94) fl MCH 33 H (28-32) pg RDW 15.3 H (13.2-15.2) % VBG pH (7.320-7.420) Potassium 3.5 L (3.6-5.0) mmol/L Carbon Dioxide 21 L (22-30) mmol/L Creatinine 1.8 H (0.8-1.5) mg/dL Glucose 563 H* (75-100) mg/dL POC Glucose > 500 H (70-105) Hemoglobin A1c (4-6) % Lactic Acid (0.7-2.0) mmol/L Calcium 8.0 L (8.4-10.2) mg/dL Alkaline Phosphatase 218 H (35-129) units/L Total Protein 5.7 L (6.3-8.2) g/dL Salicylates (2.8-20.0) mg/dL Acetaminophen (10.0-30.0) ug/mL Plasma/Serum Alcohol (0-0.07) % 03/22/20 03/22/20 03/22/20 Range/Units 01: 01: 01:29 Hct (35.5-45.6) % MCV (84-94) fl MCH (28-32) pg RDW (13.2-15.2) % VBG pH 7.226 L (7.320-7.420) Potassium (3.6-5.0) mmol/L Carbon Dioxide (22-30) mmol/L Creatinine (0.8-1.5) mg/dL Glucose (75-100) mg/dL POC Glucose (70-105) Hemoglobin A1c (4-6) % Lactic Acid (0.7-2.0) mmol/L Calcium (8.4-10.2) mg/dL Alkaline Phosphatase (35-129) units/L Total Protein (6.3-8.2) g/dL Salicylates < 0.3 L (2.8-20.0) mg/dL Acetaminophen (10.0-30.0) ug/mL Plasma/Serum Alcohol 0.30 H (0-0.07) % 03/22/20 03/22/20 03/22/20 Range/Units 01:29 02:44 03:34 Hct (35.5-45.6) % MCV (84-94) fl MCH (28-32) pg RDW (13.2-15.2) % VBG pH (7.320-7.420) Potassium (3.6-5.0) mmol/L Carbon Dioxide (22-30) mmol/L Creatinine (0.8-1.5) mg/dL Glucose (75-100) mg/dL POC Glucose 356 H (70-105) Hemoglobin A1c (4-6) % Lactic Acid 3.30 H* (0.7-2.0) mmol/L Calcium (8.4-10.2) mg/dL Alkaline Phosphatase (35-129) units/L Total Protein (6.3-8.2) g/dL Salicylates (2.8-20.0) mg/dL Acetaminophen < 5.0 L (10.0-30.0) ug/mL Plasma/Serum Alcohol (0-0.07) % 03/22/20 03/22/20 03/22/20 Range/Units 05:46 06:16 07:49 Hct (35.5-45.6) % MCV (84-94) fl MCH (28-32) pg RDW (13.2-15.2) % VBG pH (7.320-7.420) Potassium (3.6-5.0) mmol/L Carbon Dioxide (22-30) mmol/L Creatinine (0.8-1.5) mg/dL Glucose (75-100) mg/dL POC Glucose 264 H (70-105) Hemoglobin A1c (4-6) % Lactic Acid 3.40 H* 2.90 H* (0.7-2.0) mmol/L Calcium (8.4-10.2) mg/dL Alkaline Phosphatase (35-129) units/L Total Protein (6.3-8.2) g/dL Salicylates (2.8-20.0) mg/dL Acetaminophen (10.0-30.0) ug/mL Plasma/Serum Alcohol (0-0.07) % 03/22/20 03/22/20 03/22/20 Range/Units 07:49 08:16 11:26 Hct (35.5-45.6) % MCV (84-94) fl MCH (28-32) pg RDW (13.2-15.2) % VBG pH (7.320-7.420) Potassium (3.6-5.0) mmol/L Carbon Dioxide (22-30) mmol/L Creatinine (0.8-1.5) mg/dL Glucose (75-100) mg/dL POC Glucose 332 H 277 H (70-105) Hemoglobin A1c 9.3 H (4-6) % Lactic Acid (0.7-2.0) mmol/L Calcium (8.4-10.2) mg/dL Alkaline Phosphatase (35-129) units/L Total Protein (6.3-8.2) g/dL Salicylates (2.8-20.0) mg/dL Acetaminophen (10.0-30.0) ug/mL Plasma/Serum Alcohol (0-0.07) % Diabetes panel 03/22/20 03/22/20 Range/Units 01:29 07:49 Sodium 138 (137-145) mmol/L Potassium 3.5 L (3.6-5.0) mmol/L Chloride 100.7 (98-107) mmol/L Carbon Dioxide 21 L (22-30) mmol/L BUN 19 (9-20) mg/dL Creatinine 1.8 H (0.8-1.5) mg/dL Glucose 563 H* (75-100) mg/dL Hemoglobin A1c 9.3 H (4-6) % Calcium 8.0 L (8.4-10.2) mg/dL AST 22 (5-40) units/L ALT 25 (7-56) units/L Alkaline Phosphatase 218 H (35-129) units/L Total Protein 5.7 L (6.3-8.2) g/dL Albumin 4.0 (3.9-5) g/dL Calcium panel 03/22/20 Range/Units 01:29 Calcium 8.0 L (8.4-10.2) mg/dL Albumin 4.0 (3.9-5) g/dL Pituitary panel 03/22/20 Range/Units 01:29 Sodium 138 (137-145) mmol/L Potassium 3.5 L (3.6-5.0) mmol/L Chloride 100.7 (98-107) mmol/L Carbon Dioxide 21 L (22-30) mmol/L BUN 19 (9-20) mg/dL Creatinine 1.8 H (0.8-1.5) mg/dL Glucose 563 H* (75-100) mg/dL Calcium 8.0 L (8.4-10.2) mg/dL Adrenal panel 03/22/20 Range/Units 01:29 Sodium 138 (137-145) mmol/L Potassium 3.5 L (3.6-5.0) mmol/L Chloride 100.7 (98-107) mmol/L Carbon Dioxide 21 L (22-30) mmol/L BUN 19 (9-20) mg/dL Creatinine 1.8 H (0.8-1.5) mg/dL Glucose 563 H* (75-100) mg/dL Calcium 8.0 L (8.4-10.2) mg/dL Total Bilirubin 0.20 (0.1-1.2) mg/dL AST 22 (5-40) units/L ALT 25 (7-56) units/L Alkaline Phosphatase 218 H (35-129) units/L Total Protein 5.7 L (6.3-8.2) g/dL Albumin 4.0 (3.9-5) g/dL Assessment and Plan - Patient Problems (1) Foot pain, left Current Visit: No Status: Acute Plan to address problem: 1) I encouraged the pt to stop smoking. 2) BLE arterial dopplers 3) Improved/strict DM control 4) Pt is aware of the risk of major amputation if he continues to smoke and does not get his DM under control.
[2020-03-22] MEDS ORDERED: PANCREAZE PO SCH (14:00)
[2020-03-22] MEDS: QUEtiapine 25 MG TAB PO SCH ×2 (14:21→21:06)
--- NOTE | 2020-03-22 16:12 | Vascular Lab Report ---
DUPLEX DOPPLER LOWER EXTREMITY ARTERIAL, BILATERAL INDICATION: Diabetes with bilateral foot pain. TECHNIQUE: Arterial duplex examination of both lower extremities performed using B-mode, color flow and spectral Doppler assessment. FINDINGS: RIGHT: Common Femoral Artery: PSV 159 cm/sec. Triphasic waveform. Proximal SFA: PSV 136 cm/sec. Triphasic waveform. Mid SFA: PSV 127 cm/sec. Triphasic waveform. Distal SFA: PSV 88 cm/sec. Triphasic waveform. Popliteal artery: PSV 144 cm/sec. Triphasic waveform. Posterior tibial artery: PSV 149 cm/sec. Triphasic waveform. Dorsalis Pedis Artery: PSV 65 cm/sec. Triphasic waveform. LEFT: Common Femoral Artery: PSV 135 cm/sec. Triphasic waveform. Proximal SFA: PSV 148 cm/sec. Triphasic waveform. Mid SFA: PSV 113 cm/sec. Triphasic waveform. Distal SFA: PSV 80 cm/sec. Triphasic waveform. Popliteal artery: PSV 65 cm/sec. Triphasic waveform. Posterior tibial artery: No flow. Dorsalis Pedis Artery: PSV 54 cm/sec. Triphasic waveform. Bilateral ABIs were not calculated by the portfolio manager. IMPRESSION: 1. The portfolio manager was unable to detect flow in the left posterior tibial artery, this is suggestive of occlusion. This is of uncertain chronicity. 2. Triphasic wave forms throughout the remainder of the bilateral lower extremities. Doppler Waveform: * Triphasic is normal. * Biphasic is abnormal if clear transition from triphasic signal along vascular tree. * Monophasic is abnormal. Signer Name: Bubba Avendaño MD Signed: 03/22/2020 4:07 PM Workstation Name: [id number]
[2020-03-22] MEDS: METOPROLOL TARTRATE 25 MG TAB PO SCH (21:06)
[2020-03-22] MEDS: FLUTICASONE PROPIONATE NASAL SPRAY 16 GM NS SCH (21:09)
[2020-03-22] MEDS ORDERED: MELATONIN 5 MG TAB PO PRN (22:00)
[2020-03-22] MEDS ORDERED: INSULIN GLARGINE 100 UNITS/ML SUB-Q SCH (22:00)
[2020-03-22] MEDS ORDERED: traZODone 50 MG TAB PO SCH (22:00)
[2020-03-22] MEDS ORDERED: INSULIN DETEMIR 16 UNIT SQ SCH (22:00)
[2020-03-23] MEDS: oxyCODONE /ACETAMINOPHEN 5-325MG TAB PO PRN ×2 (00:55→08:47)
[2020-03-23 04:47] LABS: Basophils % (Auto) 0.3 % (0.0-1.8); Eosinophils # (Auto) 0.1 K/mm3 (0.0-0.4); Eosinophils % (Auto) 1.3 % (0.0-4.3); Hematocrit 30.3 % (35.5-45.6); Hemoglobin 10.6 gm/dl (11.8-15.2); Lymphocytes # (Auto) 1.5 K/mm3 (1.2-5.4); Lymphocytes % (Auto) 30.6 % (13.4-35.0); Mean Corpuscular HGB Conc 35 % (32-34); Mean Corpuscular Volume 94 fl (84-94); Monocytes # (Auto) 0.5 K/mm3 (0.0-0.8); Monocytes % (Auto) 9.2 % (0.0-7.3); Platelet Count 138 K/mm3 (140-440); Red Blood Count 3.23 M/mm3 (3.65-5.03); Red Cell Distribution Width 15.4 % (13.2-15.2)
[2020-03-23 04:59] LABS: INR 0.93 (0.87-1.13)
[2020-03-23 05:09] LABS: BUN/Creatinine Ratio 15; Blood Urea Nitrogen 16 mg/dL (9-20); Calcium 8.3 mg/dL (8.4-10.2); Hemolysis Index 5
[2020-03-23] MEDS: INSULIN LISPRO 100 UNIT/ML SUB-Q SCH ×2 (08:50→13:24)
[2020-03-23] MEDS ORDERED: POTASSIUM CHLORIDE ER 20 MEQ TAB PO SCH (09:00)
[2020-03-23] MEDS: NICOTINE 21 MG/24 HR PATCH TD SCH (09:01)
[2020-03-23] MEDS: METOPROLOL TARTRATE 25 MG TAB PO SCH (09:03)
[2020-03-23] MEDS: LIPASE 10,500/PROTEASE 25,000/AMYLASE 43,750 (UNITS) DR CAP PO SCH ×2 (09:07→13:26)
[2020-03-23] MEDS: QUEtiapine 25 MG TAB PO SCH (09:07)
[2020-03-23] MEDS: GABAPENTIN 300 MG CAP PO SCH ×2 (09:07→13:25)
[2020-03-23] MEDS: FLUoxetine 10 MG TAB PO SCH (09:07)
[2020-03-23] MEDS: THIAMINE 100 MG TAB PO SCH (09:07)
[2020-03-23] MEDS: FLUTICASONE PROPIONATE NASAL SPRAY 16 GM NS SCH (09:08)
--- NOTE | 2020-03-23 09:23 | Consultation ---
History of Present Illness - Reason for Consult Consult date: 03/23/20 Reason for consult: depression, SI - Chief Complaint Chief complaint: Suicidal ideation Medications and Allergies Allergies Allergy/AdvReac Type Severity Reaction Status Date / Time No Known Allergies Allergy Verified 03/22/20 01:11 Home Medications Medication Instructions Recorded Confirmed Last Taken Type Pancreaze Dr 10,500 Unit Cap 10,500 unit PO TID 02/28/19 03/22/20 Unknown History Neurontin 300 mg PO TID #14 12/10/19 03/22/20 Unknown Rx Fluticasone [Flonase] 1 spray NS BID 01/05/20 03/22/20 Unknown History oxyCODONE /ACETAMINOPHEN [Percocet 1 tab PO Q6H PRN #12 tablet 01/07/20 03/22/20 Unknown Rx 5/325 mg] Aspirin EC [Halfprin EC] 81 mg PO QDAY #30 tablet 01/11/20 03/22/20 Unknown Rx AtorvaSTATin [Lipitor] 40 mg PO QHS #30 tablet 01/11/20 03/22/20 Unknown Rx Fluticasone [Flonase] 50 mcg NS BID #1 bottle 01/11/20 03/22/20 Unknown Rx Folic Acid [Folvite] 1 mg PO QDAY #30 tablet 01/11/20 03/22/20 Unknown Rx Insulin Detemir [Levemir VIAL] 16 unit SQ QHS #100 ml 01/11/20 03/22/20 Unknown Rx Insulin Regular, Human [HumuLIN R] 0 unit SQ AC #1 vial 01/11/20 03/22/20 Unknown Rx Metoprolol [Lopressor TAB] 25 mg PO BID #60 tablet 01/11/20 03/22/20 Unknown Rx OLANzapine [ZyPREXA] 5 mg PO HS #30 tablet 01/11/20 03/22/20 Unknown Rx Pantoprazole [Protonix TAB] 40 mg PO QDAY #30 tablet 01/11/20 03/22/20 Unknown Rx Thiamine [Vitamin B-1] 100 mg PO QDAY #30 tablet 01/11/20 03/22/20 Unknown Rx amLODIPine 10 mg PO QDAY #30 tablet 01/11/20 03/22/20 Unknown Rx lisinopriL [Zestril TAB] 20 mg PO QDAY #30 tab 01/11/20 03/22/20 Unknown Rx Active Meds: Active Medications Acetaminophen (Tylenol) 650 mg PO Q4H PRN PRN Reason: Pain MILD(1-3)/Fever >100.5/MARTINEZ Amlodipine Besylate (Amlodipine) 10 mg PO QDAY [facility] Last Admin: 03/23/20 09:07 Dose: 10 mg Documented by: Lipase/Protease/Amylase (Pancreazandry Dr 10,500 Unit) 1 each PO AC [facility] Last Admin: 03/23/20 09:07 Dose: 1 each Documented by: Aspirin (Halfprin Ec) 81 mg PO QDAY [facility] Last Admin: 03/23/20 09:08 Dose: 81 mg Documented by: Atorvastatin Calcium (Lipitor) 40 mg PO QHS [facility] Last Admin: 03/22/20 21:06 Dose: 40 mg Documented by: Dextrose (D50w (25gm) Syringe) 50 ml IV Q30MIN PRN; Protocol PRN Reason: Hypoglycemia Fluoxetine HCl (Prozac) 10 mg PO QDAY [facility] Last Admin: 03/23/20 09:07 Dose: 10 mg Documented by: Fluticasone Propionate (Flonase) 50 mcg NS BID [facility] Last Admin: 03/23/20 09:08 Dose: 50 mcg Documented by: Folic Acid (Folvite) 1 mg PO QDAY [facility] Last Admin: 03/23/20 09:09 Dose: 1 mg Documented by: Gabapentin (Gabapentin) 300 mg PO TID [facility] Last Admin: 03/23/20 09:07 Dose: 300 mg Documented by: Sodium Chloride (Nacl 0.9% 1000 Ml) 1,000 mls @ 125 mls/hr IV DIRECT [facility] Last Admin: 03/22/20 12:54 Dose: 125 mls/hr Documented by: Insulin [facility] ([facility]us) [facility] Last Admin: 03/22/20 21:07 Dose: 16 units Documented by: Insulin Human Lispro (Humalog) 0 unit SUB-Q [facility]; Protocol Last Admin: 03/23/20 08:50 Dose: Not Given Documented by: Lisinopril (Zestril) 20 mg PO QDAY [facility] Last Admin: 03/23/20 09:06 Dose: 20 mg Documented by: Magnesium Hydroxide (Milk Of Magnesia) 30 ml PO Q4H PRN PRN Reason: Constipation Melatonin (Melatonin) 5 mg PO QHS PRN PRN Reason: Sleep Last Admin: 03/23/20 09:06 Dose: 5 mg Documented by: Metoprolol Tartrate (Metoprolol) 25 mg PO BID [facility] Last Admin: 03/23/20 09:03 Dose: 25 mg Documented by: Morphine Sulfate (Morphine) 2 mg IV Q4H PRN PRN Reason: Pain, Moderate (4-6) Last Admin: 03/22/20 14:15 Dose: 2 mg Documented by: Nicotine (Habitrol) 21 mg TD QDAY [facility] Last Admin: 03/23/20 09:01 Dose: 21 mg Documented by: Olanzapine (Zyprexa) 5 mg PO HS [facility] Last Admin: 03/22/20 21:06 Dose: 5 mg Documented by: Ondansetron HCl (Zofran) 4 mg IV Q8H PRN PRN Reason: Nausea And Vomiting Oxycodone/Acetaminophen (Percocet 5/325) 1 tab PO Q6H PRN PRN Reason: Pain , Severe (7-10) Last Admin: 03/23/20 08:47 Dose: 1 tab Documented by: Pantoprazole Sodium (Protonix) 40 mg PO QDAY [facility] Last Admin: 03/23/20 09:07 Dose: 40 mg Documented by: Potassium Chloride (K-Dur) 40 meq PO ONCE [facility] Stop: 03/23/20 11:00 Quetiapine Fumarate (Seroquel) 25 mg PO BID [facility] Last Admin: 03/23/20 09:07 Dose: 25 mg Documented by: Sodium Chloride (Sodium Chloride Flush Syringe 10 Ml) 10 ml IV BID [facility] Last Admin: 03/23/20 09:09 Dose: 10 ml Documented by: Sodium Chloride (Sodium Chloride Flush Syringe 10 Ml) 10 ml IV PRN PRN PRN Reason: LINE FLUSH Thiamine HCl (Vitamin B-1) 100 mg PO QDAY [facility] Last Admin: 03/23/20 09:07 Dose: 100 mg Documented by: Trazodone HCl (Desyrel) 50 mg PO QHS [facility] Last Admin: 03/22/20 21:06 Dose: 50 mg Documented by: Ziprasidone (Geodon) 20 mg IM Q6H PRN PRN Reason: Agitation Mental Status Exam - Vital signs Last Vital Signs Temp 97.3 F L 03/23/20 08:02 Pulse 70 03/23/20 09:07 Resp 18 03/23/20 08:02 BP 168/93 03/23/20 08:02 Pulse Ox 100 03/23/20 08:02 Results Result Diagrams: 03/23/20 03:34 03/23/20 03:34 Abnormal lab results 03/22/20 03/22/20 03/22/20 Range/Units 11:26 16:52 21:15 RBC (3.65-5.03) M/mm3 Hgb (11.8-15.2) gm/dl Hct (35.5-45.6) % MCH (28-32) pg MCHC (32-34) % RDW (13.2-15.2) % Plt Count (140-440) K/mm3 [place] % (Auto) (0.0-7.3) % Potassium (3.6-5.0) mmol/L Chloride (98-107) mmol/L Carbon Dioxide (22-30) mmol/L POC Glucose 277 H 208 H 227 H (70-105) Calcium (8.4-10.2) mg/dL 03/23/20 03/23/20 Range/Units 03:34 03:34 RBC 3.23 L (3.65-5.03) M/mm3 Hgb 10.6 L (11.8-15.2) gm/dl Hct 30.3 L (35.5-45.6) % MCH 33 H (28-32) pg MCHC 35 H (32-34) % RDW 15.4 H (13.2-15.2) % Plt Count 138 L (140-440) K/mm3 [place] % (Auto) 9.2 H (0.0-7.3) % Potassium 3.3 L (3.6-5.0) mmol/L Chloride 109.9 H (98-107) mmol/L Carbon Dioxide 18 L (22-30) mmol/L POC Glucose (70-105) Calcium 8.3 L (8.4-10.2) mg/dL All other labs normal.
--- NOTE | 2020-03-23 09:24 | Progress Note ---
Subjective - Reason for Consult Consult date: 03/23/20 Reason for consult: SI, Depression - Chief Complaint Chief complaint: During my interview with the patient this morning, he is sitting up in bed. He is a/o x 3. He makes fair eye contact. His affect is flat. He verbalizes, "constant depression." The patient says "it's my Bipolar. 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 He verbalizes "talking to people who are not there." The patient states, "but I actually feel better. The seroquel you gave me made me feel calm. It really works." He says his appetite is "good" and he slept "good." MENTAL STATUS EXAMINATION General Appearance: Dressed appropriately Behavior: Calm and Cooperative. Poor eye contact Mood: "depressed, feel better" Affect: Flat Speech: Normal tone and pace Thought Process: Goal oriented Thought Content: Suicidal Ideation: Yes Homicidal Ideation: Denies Hallucinations: Auditory/Visual Delusions: None elicited Insight and Judgment: Limited Memory/Cognition: Limited Assessment Bipolar Disorder, Severe, Current Episode Depressed with Psychotic Features Plan MEDICATIONS: Increase Seroquel 50mg po BID Increase Prozac 20mg po daily Risks, benefits and alternatives of medications discussed with the patient, questions answered and consent obtained from patient. PSYCHOTHERAPY: Supportive psychotherapy provided MEDICAL: Per primary team DELIRIUM PRECAUTIONS: Please re-orient patient frequently, keep lights on during the day, and minimize benzodiazepines and opiates as these medications could worsen patient's confusion. 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 DISPOSITION: The patient meets the requirement for acute inpatient psychiatric hospitalization at this time. He may transfer to the master-psych floor once medically clear. The treatment plan was explained to the patient, including benefits and side effects of medications, he verbalizes understanding and agreement of plan. Will continue to follow the patient. Thank you for the consult. Please contact with any questions or concerns. Mental Status Exam - Vital signs Last Vital Signs Temp 97.3 F L 03/23/20 08:02 Pulse 70 03/23/20 09:07 Resp 18 03/23/20 08:02 BP 168/93 03/23/20 08:02 Pulse Ox 100 03/23/20 08:02
[2020-03-23] MEDS ORDERED: FLUoxetine 10 MG TAB PO SCH (09:29)
--- NOTE | 2020-03-23 09:32 | Progress Note ---
Assessment and Plan - Patient Problems (1) Foot pain, left Current Visit: No Status: Acute Plan to address problem: 1) BLE arterial dopplers reveal triphasic flow throughout except for the left PT which is occluded. Pt does not need any vascular or general surgical intervention. 2) Pt needs to stop smoking. 3) Strict DM control 4) I will sign off. Subjective Date of service: 03/23/20 Patient Reports: Positive: no new complaints Objective Vital Signs - 12hr 03/23/20 03/23/20 03/23/20 00:00 00:15 04:46 Temperature 98.1 F 98.2 F Pulse Rate 78 72 65 Respiratory 20 20 Rate Blood Pressure 139/91 Blood Pressure 144/86 [Right] O2 Sat by Pulse 99 100 Oximetry 03/23/20 03/23/20 03/23/20 08:02 09:03 09:06 Temperature 97.3 F L Pulse Rate 67 70 70 Respiratory 18 Rate Blood Pressure 168/93 Blood Pressure [Right] O2 Sat by Pulse 100 Oximetry 03/23/20 09:07 Temperature Pulse Rate 70 Respiratory Rate Blood Pressure Blood Pressure [Right] O2 Sat by Pulse Oximetry - Labs 03/23/20 03:34 03/23/20 03:34 Diabetes panel 03/23/20 Range/Units 03:34 Sodium 142 (137-145) mmol/L Potassium 3.3 L (3.6-5.0) mmol/L Chloride 109.9 H (98-107) mmol/L Carbon Dioxide 18 L (22-30) mmol/L BUN 16 (9-20) mg/dL Creatinine 1.1 (0.8-1.5) mg/dL Glucose 90 (75-100) mg/dL Calcium 8.3 L (8.4-10.2) mg/dL Calcium panel 03/23/20 Range/Units 03:34 Calcium 8.3 L (8.4-10.2) mg/dL Pituitary panel 03/23/20 Range/Units 03:34 Sodium 142 (137-145) mmol/L Potassium 3.3 L (3.6-5.0) mmol/L Chloride 109.9 H (98-107) mmol/L Carbon Dioxide 18 L (22-30) mmol/L BUN 16 (9-20) mg/dL Creatinine 1.1 (0.8-1.5) mg/dL Glucose 90 (75-100) mg/dL Calcium 8.3 L (8.4-10.2) mg/dL Adrenal panel 03/23/20 Range/Units 03:34 Sodium 142 (137-145) mmol/L Potassium 3.3 L (3.6-5.0) mmol/L Chloride 109.9 H (98-107) mmol/L Carbon Dioxide 18 L (22-30) mmol/L BUN 16 (9-20) mg/dL Creatinine 1.1 (0.8-1.5) mg/dL Glucose 90 (75-100) mg/dL Calcium 8.3 L (8.4-10.2) mg/dL
[2020-03-23] MEDS ORDERED: FOLIC ACID 1 MG TAB PO SCH ×2 (10:00)
[2020-03-23] MEDS ORDERED: ASPIRIN EC 81 MG TAB PO SCH (10:00)
[2020-03-23] MEDS ORDERED: FLUoxetine 20 MG CAP PO SCH (10:00)
[2020-03-23] MEDS ORDERED: QUEtiapine 25 MG TAB PO ONE (10:00)
[2020-03-23] MEDS ORDERED: THIAMINE 100 MG TAB PO SCH (10:00)
[2020-03-23] MEDS ORDERED: FLUoxetine 10 MG TAB PO ONE (10:00)
[2020-03-23] MEDS ORDERED: LISINOPRIL 20 MG TAB PO SCH (10:00)
[2020-03-23] MEDS ORDERED: amLODIPine 10 MG TAB PO SCH (10:00)
[2020-03-23] MEDS ORDERED: PANTOPRAZOLE 40 MG TAB PO SCH (10:00)
--- NOTE | 2020-03-23 11:07 | Discharge Summary ---
Providers - Providers Date of Admission: 03/22/20 06:00 Attending physician: MYRON ADORNO MD 03/22/20 06:22 Consult to Dietitian/Nutrition [CONS] Routine Physician Instructions: Reason For Exam: Reason for Consult: Diet education Consult to Physician [CONS] Routine Comment: Consulting Provider: CRYSTAL SPANN Physician Instructions: Reason For Exam: suicidal ideation 03/22/20 08:57 Consult to Physician [CONS] Routine Comment: Consulting Provider: PHUONG STEIN Physician Instructions: Reason For Exam: partial foot amputation 03/22/20 08:58 Consult to Wound/ET Nurse [CONS] Routine Reason For Exam: wound eval Primary care physician: ELEMENT BURNER Hospitalization Reason for admission: Hyperglycemia Condition: Stable Hospital course: 54-year-old male with known history of depression, PTSD and anxiety presenting with a complaint of suicidal ideations. He has been off his psychiatric medication for the past 3 to 4 months. Indicates he feels like ending his life on a daily basis. He does not have any specific plans as to how he hopes to harm himself but just indicates that he does not want to live. Indicates he just has so many medical problems that depresses him. He had a partial left foot amputation about 7 months ago. He has not been quite compliant with his medications. He also admits that he had some alcohol prior to reporting to the emergency room today Evaluation in the emergency room reveals hyperglycemia with blood glucose greater than 500. He was given some insulin and IV fluid in the emergency room. Blood sugar improved to the 200s. Patient was aggressively hydrated. Due to the left foot pain following history of amputation patient was evaluated by surgery who ordered a bilateral arterial Doppler which revealed a triphasic flow throughout except the left PT which is occluded at this point they recommended no vascular or surgical intervention aggressively advised the patient about 20 minutes spent on counseling need to quit tobacco use and strict DM control. Patient was also seen by psychiatry was diagnosed with bipolar disorder with severe current episode of depression with psychotic features recommended an inpatient psych management. The patient is clinically stable at this time for transfer to inpatient psych. Bipolar Disorder, Severe, Current Episode Depressed with Psychotic Features Diabetes mellitus with hyperglycemia Acute kidney injury secondary to vasomotor nephropathy Severe metabolic acidosis now resolved Left foot pain status post amputation Suicidal ideation Hypokalemia Chronic anemia Disposition: DC/TX-65 PSY HOSP/PSY UNIT Time spent for discharge: 35 minutes Core Measure Documentation - Palliative Care Palliative Care/ Comfort Measures: Not Applicable - Core Measures Any of the following diagnoses?: none Exam - Physical Exam Narrative exam: VITAL SIGNS: Reviewed. GENERAL: The patient appears normally developed, Vital signs as documented. HEAD: No signs of head trauma. EYES: Pupils are equal. Extraocular motions intact. EARS: Hearing grossly intact. MOUTH: Oropharynx is normal. NECK: No adenopathy, no JVD. CHEST: Chest with clear breath sounds bilaterally. No wheezes, rales, or rhonchi. CARDIAC: Regular rate and rhythm. S1 and S2, without murmurs, gallops, or rubs. VASCULAR: No Edema. Peripheral pulses normal and equal in all extremities. ABDOMEN: Soft, non tender and non distended. No rebound or guarding, and no masses palpated. Bowel Sounds normal. MUSCULOSKELETAL: Left lower extremity amputation. Mild erythema with no warmth. Good range of motion of all major joints. Extremities without clubbing, cyanosis or edema. NEUROLOGIC EXAM: Alert and oriented x 3 No focal sensory or strength deficits. Speech normal. Follows commands. PSYCHIATRIC: Mood normal. SKIN: detial exam as documented in skin assessment - Constitutional Vitals: Temp Pulse Resp BP Pulse Ox 97.3 F L 70 18 168/93 100 03/23/20 08:02 03/23/20 09:07 03/23/20 08:02 03/23/20 08:02 03/23/20 08:02 Plan Activity: advance as tolerated, fall precautions Diet: diabetic Special Instructions: record daily BP diary, record blood sugar diary, smoking cessation Follow up with: HELENA BENNETT MD [Primary Care Provider] - 7 Days PHUONG STEIN MD [Staff Physician] - 7 Days
[2020-03-23 12:22] VITALS: BP 106/78
[2020-03-23] MEDS ORDERED: QUEtiapine 25 MG TAB PO SCH (22:00)
[2020-03-24] MEDS ORDERED: FLUoxetine 20 MG CAP PO SCH (10:00)
== END 2020-03-23 15:39 ==
LOC: ED 00:54 → SUATTDRO 00:54 → INTOOBSV 06:00 → 4A 06:00
PROVIDERS: ADMIT Internal Medicine Geriatric Medicine; ATTEND Internal Medicine
DX: E11.65 Type 2 diabetes mellitus with hyperglycemia (principal); R45.851 Suicidal ideations; N17.9 Acute kidney failure, unspecified; E87.2 Acidosis; F43.10 Post-traumatic stress disorder, unspecified; F41.9 Anxiety disorder, unspecified; F32.9 Major depressive disorder, single episode, unspecified; I10 Essential (primary) hypertension; F10.920 Alcohol use, unspecified with intoxication, uncomplicated; M79.672 Pain in left foot; Z79.4 Long term (current) use of insulin; Z79.899 Other long term (current) drug therapy; Z71.6 Tobacco abuse counseling
CPT/HCPCS: 36415; 80048; 80053; 80307; 81001; 82010; 82140; 82805; 82962; 83036; 85025; 85610; 87641; 93005; 93925; 96361; 96365; 96372; 96375; 99285; 99406; A9270; G0378; J2270; J3411; J3486; J7030; 80320; G0480; J1815

== ENCOUNTER 2020-03-29 22:26 | Emergency (ER) | payer MEDICAID ==
[2020-03-30] MEDS ORDERED: SODIUM CHLORIDE 0.9% 1000 ML 1,000 ML IV ONE (00:02)
[2020-03-30] MEDS ORDERED: INSULIN REGULAR, HUMAN 100 UNITS/1 ML IV ONE (00:03)
[2020-03-30 01:13] LABS: Basophils % (Auto) 0.4 % (0.0-1.8); Eosinophils # (Auto) 0.1 K/mm3 (0.0-0.4); Hemoglobin 12.8 gm/dl (11.8-15.2); Lymphocytes # (Auto) 1.2 K/mm3 (1.2-5.4); Lymphocytes % (Auto) 24.2 % (13.4-35.0); Mean Corpuscular HGB Conc 34 % (32-34); Mean Corpuscular Volume 94 fl (84-94); Monocytes # (Auto) 0.6 K/mm3 (0.0-0.8); Monocytes % (Auto) 12.5 % (0.0-7.3); Platelet Count 227 K/mm3 (140-440); Red Blood Count 4.05 M/mm3 (3.65-5.03); Red Cell Distribution Width 14.9 % (13.2-15.2)
[2020-03-30 01:39] LABS: Alanine Aminotransferase 19 units/L (7-56); Albumin 4.2 g/dL (3.9-5); BUN/Creatinine Ratio 19; Blood Urea Nitrogen 21 mg/dL (9-20); Calcium 9.5 mg/dL (8.4-10.2); Hemolysis Index 12
--- NOTE | 2020-03-30 02:17 | Emergency Department Report ---
ED General Adult HPI - General Chief complaint: Hyperglycemia Stated complaint: hyperglycemia Time Seen by Provider: 03/29/20 23:40 Source: family Mode of arrival: Ambulatory Limitations: No Limitations - History of Present Illness Initial comments: Mr. Rojas is a 54-year-old white male who presents for medication refills. States he was at discharge Hospital on yesterday however forgot to bring his medications. He has specific other prescriptions in his possession and needs to get them refilled. I have advised him he needs to call his PCP for prior authorization and he can have medications refilled. He denies symptoms at this time. There is no fever, chills, and there is no nausea no vomiting. He states he missed his dose of insulin this evening. I will provide same, patient is tolerating p.o. intake without nausea vomiting, there are no other symptoms. vital signs: bp: 173/100, hr: 83, T: 98.R: 18j, O2 sat98 % Onset/Timin - Related Data Home Medications Medication Instructions Recorded Confirmed Last Taken Bob Wang 10,500 Unit Cap 10,500 unit PO TID 02/28/19 03/24/20 Unknown Previous Rx's Medication Instructions Recorded Last Taken Type Aspirin EC [Halfprin EC] 81 mg PO QDAY tablet 03/27/20 Unknown Rx AtorvaSTATin [Lipitor] 40 mg PO QHS tablet 03/27/20 Unknown Rx Folic Acid [Folvite] 1 mg PO QDAY tablet 03/27/20 Unknown Rx Gabapentin 300 mg PO TID capsule 03/27/20 Unknown Rx Insulin Glargine [Lantus VIAL] 16 units SUB-Q QHS units 03/27/20 Unknown Rx Lipase/Protease/Amylase [Kalyan Wang 5 each PO AC capsule 03/27/20 Unknown Rx 12,000 Units] Lispro Insulin [HumaLOG] 0 unit SUB-Q ACHS units 03/27/20 Unknown Rx Melatonin [Melatonin 5MG TAB] 5 mg PO QHS PRN tablet 03/27/20 Unknown Rx Metoprolol [Lopressor TAB] 25 mg PO BID tablet 03/27/20 Unknown Rx Pantoprazole [Protonix TAB] 40 mg PO QDAY tablet 03/27/20 Unknown Rx QUEtiapine [SEROquel] 50 mg PO BID #60 tablet 03/27/20 Unknown Rx Thiamine [Vitamin B-1] 100 mg PO QDAY tablet 03/27/20 Unknown Rx Venlafaxine Xr [Effexor XR] 150 mg PO QDAY #30 capsule 03/27/20 Unknown Rx amLODIPine 10 mg PO QDAY tablet 03/27/20 Unknown Rx lisinopriL [Zestril TAB] 20 mg PO QDAY tablet 03/27/20 Unknown Rx traZODone [Desyrel] 50 mg PO QHS #30 tablet 03/27/20 Unknown Rx Allergies Allergy/AdvReac Type Severity Reaction Status Date / Time No Known Allergies Allergy Verified 03/22/20 01:11 ED Review of Systems ROS: Stated complaint: hyperglycemia Other details as noted in HPI Constitutional: denies: chills, fever Eyes: denies: eye pain, eye discharge, vision change ENT: denies: ear pain, throat pain Respiratory: denies: cough, shortness of breath, wheezing Cardiovascular: denies: chest pain, palpitations Endocrine: no symptoms reported Gastrointestinal: denies: abdominal pain, nausea, diarrhea Genitourinary: denies: urgency, dysuria Musculoskeletal: denies: back pain, joint swelling, arthralgia Skin: denies: rash, lesions Neurological: denies: headache, weakness, paresthesias Psychiatric: denies: anxiety, depression Hematological/Lymphatic: denies: easy bleeding, easy bruising ED Past Medical Hx - Past Medical History Hx Hypertension: Yes Hx Congestive Heart Failure: No Hx Diabetes: Yes Hx Renal Disease: No Hx Arthritis: No Hx Seizures: No Hx Psychiatric Treatment: Yes (bipolar, PTSD, anxiety, ETOH abuse) Hx Asthma: No Hx COPD: No Hx Dementia: No Hx HIV: No Additional medical history: PAD, Pancreatitis, Neuropathy - Surgical History Hx Cholecystectomy: No Hx Appendectomy: No Additional Surgical History: Bilateral Inguinal Repair., left partial foot amputee - Social History Smoking Status: Current Every Day Smoker Substance Use Type: Alcohol - Medications Home Medications: Home Medications Medication Instructions Recorded Confirmed Last Taken Type Pancreaze Dr 10,500 Unit Cap 10,500 unit PO TID 02/28/19 03/24/20 Unknown History Aspirin EC [Halfprin EC] 81 mg PO QDAY tablet 03/27/20 Unknown Rx AtorvaSTATin [Lipitor] 40 mg PO QHS tablet 03/27/20 Unknown Rx Folic Acid [Folvite] 1 mg PO QDAY tablet 05/18/20 Unknown Rx Gabapentin 300 mg PO TID capsule 03/27/20 Unknown Rx Insulin Glargine [Lantus VIAL] 16 units SUB-Q QHS units 03/27/20 Unknown Rx Lipase/Protease/Amylase [Creon Dr 5 each PO AC capsule 03/27/20 Unknown Rx 12,000 Units] Lispro Insulin [HumaLOG] 0 unit SUB-Q ACHS units 03/27/20 Unknown Rx Melatonin [Melatonin 5MG TAB] 5 mg PO QHS PRN tablet 03/27/20 Unknown Rx Metoprolol [Lopressor TAB] 25 mg PO BID tablet 03/27/20 Unknown Rx Pantoprazole [Protonix TAB] 40 mg PO QDAY tablet 03/27/20 Unknown Rx QUEtiapine [SEROquel] 50 mg PO BID #60 tablet 03/27/20 Unknown Rx Thiamine [Vitamin B-1] 100 mg PO QDAY tablet 03/27/20 Unknown Rx Venlafaxine Xr [Effexor XR] 150 mg PO QDAY #30 capsule 03/27/20 Unknown Rx amLODIPine 10 mg PO QDAY tablet 03/27/20 Unknown Rx lisinopriL [Zestril TAB] 20 mg PO QDAY tablet 03/27/20 Unknown Rx traZODone [Desyrel] 50 mg PO QHS #30 tablet 03/27/20 Unknown Rx ED Physical Exam - General Limitations: No Limitations General appearance: alert - Head Head exam: Present: atraumatic, normocephalic - Eye Eye exam: Present: normal appearance, PERRL, EOMI Pupils: Present: normal accommodation - ENT ENT exam: Present: mucous membranes moist - Neck Neck exam: Present: normal inspection, full ROM. Absent: tenderness - Respiratory Respiratory exam: Present: normal lung sounds bilaterally. Absent: respiratory distress, wheezes, stridor, chest wall tenderness - Cardiovascular Cardiovascular Exam: Present: regular rate, normal rhythm, normal heart sounds. Absent: systolic murmur, diastolic murmur, rubs, gallop - GI/Abdominal GI/Abdominal exam: Present: soft, normal bowel sounds. Absent: distended, tenderness, guarding, bruit, hernia - Rectal Rectal exam: Present: deferred - Extremities Exam Extremities exam: Present: normal inspection, full ROM, normal capillary refill. Absent: tenderness - Back Exam Back exam: Present: normal inspection, full ROM. Absent: tenderness, CVA tenderness (R), CVA tenderness (L), rash noted - Neurological Exam Neurological exam: Present: alert, oriented X3, CN II-XII intact, normal gait, reflexes normal. Absent: motor sensory deficit - Psychiatric Psychiatric exam: Present: normal affect, normal mood - Skin Skin exam: Present: warm, dry, intact, normal color. Absent: rash, cyanosis ED Medical Decision Making - Lab Data Result diagrams: 03/30/20 00:13 03/30/20 00:13 Labs 03/29/20 03/30/20 03/30/20 22:59 00:13 00:13 WBC 5.1 RBC 4.05 Hgb 12.8 Hct 38.0 MCV 94 MCH 32 MCHC 34 RDW 14.9 Plt Count 227 Lymph % (Auto) 24.2 [place] % (Auto) 12.5 H Eos % (Auto) 1.0 Baso % (Auto) 0.4 Lymph # 1.2 [place] # 0.6 Eos # 0.1 Baso # 0.0 Seg Neutrophils % 61.9 Seg Neutrophils # 3.1 VBG pH Sodium 135 L Potassium 5.1 H Chloride 94.1 L Carbon Dioxide 27 Anion Gap 19 BUN 21 H Creatinine 1.1 Estimated GFR > 60 BUN/Creatinine Ratio 19 Glucose 388 H POC Glucose 433 H Calcium 9.5 Total Bilirubin 0.30 AST 15 ALT 19 Alkaline Phosphatase 187 H Total Protein 6.6 Albumin 4.2 Albumin/Globulin Ratio 1.8 03/30/20 00:13 WBC RBC Hgb Hct MCV MCH MCHC RDW Plt Count Lymph % (Auto) [place] % (Auto) Eos % (Auto) Baso % (Auto) Lymph # [place] # Eos # Baso # Seg Neutrophils % Seg Neutrophils # VBG pH 7.295 L Sodium Potassium Chloride Carbon Dioxide Anion Gap BUN Creatinine Estimated GFR BUN/Creatinine Ratio Glucose POC Glucose Calcium Total Bilirubin AST ALT Alkaline Phosphatase Total Protein Albumin Albumin/Globulin Ratio - Medical Decision Making Patient symptoms are improved. Patient provided with prescription for antibiotics for UTI. Patient will follow-up with primary care in 1-2 days. 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 Critical care attestation.: If time is entered above; I have spent that time in minutes in the direct care of this critically ill patient, excluding procedure time. ED Disposition Clinical Impression: Medication refill Disposition: DC-01 TO HOME OR SELFCARE Is pt being admited?: No Does the pt Need Aspirin: No Condition: Stable Additional Instructions: see your primary care doctor to refill your medications Referrals: PRIMARY CAREMD [Primary Care Provider] - 3-5 Days Forms: Work/School Release Form(ED) Time of Disposition: 02:33
[2020-03-30 02:31] VITALS: BP 183/97
== END 2020-03-30 02:49 | disposition home or self-care (01) ==
LOC: ED 22:26
DX: E11.65 Type 2 diabetes mellitus with hyperglycemia (principal); E11.51 Type 2 diabetes mellitus with diabetic peripheral angiopathy without gangrene; I10 Essential (primary) hypertension; F31.9 Bipolar disorder, unspecified; F41.9 Anxiety disorder, unspecified; F17.200 Nicotine dependence, unspecified, uncomplicated; Z79.899 Other long term (current) drug therapy; Z98.890 Other specified postprocedural states; Z76.0 Encounter for issue of repeat prescription
CPT/HCPCS: 36415; 80053; 82805; 82962; 85025; 96361; 96374; 99284; J7030; J1815

== ENCOUNTER 2020-05-30 22:11 | Emergency (ER) | payer MEDICAID ==
--- NOTE | 2020-05-31 00:38 | XRay Report ---
Left foot 2 views INDICATION: Left foot pain. IMPRESSION: Midfoot amputation. There is some soft tissue swelling overlying the stump, nonspecific. No definite osseous destruction is identified. Severe disuse type osteopenia present. Signer Name: Manohar Marrufo MD Signed: 05/31/2020 12:34 AM Workstation Name: [id number]
--- NOTE | 2020-05-31 00:40 | XRay Report ---
Rib series with chest 5 views INDICATION: Right rib pain chest pain following fall IMPRESSION: Several healed fractures identified along the lateral aspect of the left lower rib cage. There are several displaced right-sided rib fractures involving the right sixth and seventh ribs late rally. The lungs are grossly clear Signer Name: Manohar Marrufo MD Signed: 05/31/2020 12:36 AM Workstation Name: [id number]
[2020-05-31] MEDS ORDERED: HYDROcodone/ACETAMINOPHEN 5-325 MG TAB PO ONE (01:22)
[2020-05-31] MEDS ORDERED: CLINDAMYCIN 300 MG CAP PO ONE (01:23)
--- NOTE | 2020-05-31 01:34 | Emergency Department Report ---
ED General Adult HPI - General Chief complaint: Fall Stated complaint: RIB PAIN POST FALL PUI?: No Time Seen by Provider: 05/31/20 00:07 Source: patient, EMS Mode of arrival: Wheelchair Limitations: Physical Limitation - History of Present Illness Initial comments: This is a 54-year-old male with a history of diabetes and foot amputee who presents the ED complaining of pain to the amputated foot and rib pain from falling earlier today. Patient states that he was at his home when he accidentally fell going up some steps. Patient states he fell about 4 steps. Patient states that he has not had any fever, chills, nausea vomiting or any other symptoms other than pain to the foot and some right rib pain. He denies shortness of breath or difficulty breathing. - Related Data Home Medications Medication Instructions Recorded Confirmed Last Taken Bob Wang 10,500 Unit Cap 10,500 unit PO TID 02/28/19 03/24/20 Unknown Previous Rx's Medication Instructions Recorded Last Taken Type Aspirin EC [Halfprin EC] 81 mg PO QDAY tablet 03/27/20 Unknown Rx AtorvaSTATin [Lipitor] 40 mg PO QHS tablet 03/27/20 Unknown Rx Folic Acid [Folvite] 1 mg PO QDAY tablet 03/27/20 Unknown Rx Gabapentin 300 mg PO TID capsule 03/27/20 Unknown Rx Insulin Glargine [Lantus VIAL] 16 units SUB-Q QHS units 03/27/20 Unknown Rx Lipase/Protease/Amylase [Kalyan Wang 5 each PO AC capsule 03/27/20 Unknown Rx 12,000 Units] Lispro Insulin [HumaLOG] 0 unit SUB-Q ACHS units 03/27/20 Unknown Rx Melatonin [Melatonin 5MG TAB] 5 mg PO QHS PRN tablet 03/27/20 Unknown Rx Metoprolol [Lopressor TAB] 25 mg PO BID tablet 03/27/20 Unknown Rx Pantoprazole [Protonix TAB] 40 mg PO QDAY tablet 03/27/20 Unknown Rx QUEtiapine [SEROquel] 50 mg PO BID #60 tablet 03/27/20 Unknown Rx Thiamine [Vitamin B-1] 100 mg PO QDAY tablet 03/27/20 Unknown Rx Venlafaxine Xr [Effexor XR] 150 mg PO QDAY #30 capsule 03/27/20 Unknown Rx amLODIPine 10 mg PO QDAY tablet 03/27/20 Unknown Rx lisinopriL [Zestril TAB] 20 mg PO QDAY tablet 03/27/20 Unknown Rx traZODone [Desyrel] 50 mg PO QHS #30 tablet 03/27/20 Unknown Rx Clindamycin [Clindamycin CAP] 300 mg PO TID #20 capsule 05/31/20 Unknown Rx HYDROcodone/APAP 5-325 [[place] 1 each PO Q6H #12 tablet 05/31/20 Unknown Rx 5-325 mg TAB] Allergies Allergy/AdvReac Type Severity Reaction Status Date / Time ketorolac [From Toradol] Allergy Unknown Verified 05/30/20 22:34 ED Review of Systems ROS: Stated complaint: RIB PAIN POST FALL Other details as noted in HPI Comment: All other systems reviewed and negative ED Past Medical Hx - Past Medical History Previous Medical History?: Yes Hx Hypertension: Yes Hx Congestive Heart Failure: No Hx Diabetes: Yes Hx Renal Disease: No Hx Arthritis: No Hx Seizures: No Hx Psychiatric Treatment: Yes (bipolar, PTSD, anxiety, ETOH abuse) Hx Asthma: No Hx COPD: No Hx Dementia: No Hx HIV: No Additional medical history: PAD, Pancreatitis, Neuropathy. DDD - Surgical History Past Surgical History?: Yes Hx Cholecystectomy: No Hx Appendectomy: No Additional Surgical History: Bilateral Inguinal Repair., left partial foot amputee. pancreatic - Social History Smoking Status: Current Every Day Smoker Substance Use Type: Alcohol - Medications Home Medications: Home Medications Medication Instructions Recorded Confirmed Last Taken Type Pancreazandry Dr 10,500 Unit Cap 10,500 unit PO TID 02/28/19 03/24/20 Unknown History Aspirin EC [Halfprin EC] 81 mg PO QDAY tablet 03/27/20 Unknown Rx AtorvaSTATin [Lipitor] 40 mg PO QHS tablet 03/27/20 Unknown Rx Folic Acid [Folvite] 1 mg PO QDAY tablet 03/27/20 Unknown Rx Gabapentin 300 mg PO TID capsule 03/27/20 Unknown Rx Insulin Glargine [Lantus VIAL] 16 units SUB-Q QHS units 03/27/20 Unknown Rx Lipase/Protease/Amylase [Kalyan Dr 5 each PO AC capsule 03/27/20 Unknown Rx 12,000 Units] Lispro Insulin [HumaLOG] 0 unit SUB-Q ACHS units 03/27/20 Unknown Rx Melatonin [Melatonin 5MG TAB] 5 mg PO QHS PRN tablet 03/27/20 Unknown Rx Metoprolol [Lopressor TAB] 25 mg PO BID tablet 03/27/20 Unknown Rx Pantoprazole [Protonix TAB] 40 mg PO QDAY tablet 03/27/20 Unknown Rx QUEtiapine [SEROquel] 50 mg PO BID #60 tablet 03/27/20 Unknown Rx Thiamine [Vitamin B-1] 100 mg PO QDAY tablet 03/27/20 Unknown Rx Venlafaxine Xr [Effexor XR] 150 mg PO QDAY #30 capsule 03/27/20 Unknown Rx amLODIPine 10 mg PO QDAY tablet 03/27/20 Unknown Rx lisinopriL [Zestril TAB] 20 mg PO QDAY tablet 03/27/20 Unknown Rx traZODone [Desyrel] 50 mg PO QHS #30 tablet 03/27/20 Unknown Rx Clindamycin [Clindamycin CAP] 300 mg PO TID #20 capsule 05/31/20 Unknown Rx HYDROcodone/APAP 5-325 [[place] 1 each PO Q6H #12 tablet 05/31/20 Unknown Rx 5-325 mg TAB] ED Physical Exam - General Limitations: Physical Limitation General appearance: alert, in no apparent distress - Head Head exam: Present: atraumatic, normocephalic - Eye Eye exam: Present: normal appearance - ENT ENT exam: Present: mucous membranes moist - Neck Neck exam: Present: normal inspection - Respiratory Respiratory exam: Present: normal lung sounds bilaterally, chest wall tenderness (In the right mid chest). Absent: respiratory distress, wheezes, rales, accessory muscle use, decreased breath sounds - Cardiovascular Cardiovascular Exam: Present: regular rate, normal rhythm. Absent: systolic murmur, diastolic murmur, rubs, gallop - GI/Abdominal GI/Abdominal exam: Present: soft, normal bowel sounds - Rectal Rectal exam: Present: deferred - Extremities Exam Extremities exam: Present: normal inspection - Back Exam Back exam: Present: normal inspection - Neurological Exam Neurological exam: Present: alert, oriented X3 - Psychiatric Psychiatric exam: Present: normal affect, normal mood - Skin Skin exam: Present: warm, dry, intact, normal color. Absent: rash ED Course Vital Signs 05/30/20 05/31/20 05/31/20 22:29 02:20 02:34 Temperature 98.2 F 98.0 F Pulse Rate 113 H 88 Respiratory 18 18 18 Rate Blood Pressure 146/105 Blood Pressure 138/72 [Right] O2 Sat by Pulse 99 98 98 Oximetry ED Medical Decision Making - Radiology Data Radiology results: report reviewed, image reviewed Fluoro Time In Minutes: Rib series with chest 5 views INDICATION: Right rib pain chest pain following fall IMPRESSION: Several healed fractures identified along the lateral aspect of the left lower rib cage. There are several displaced right-sided rib fractures involving the right sixth and seventh ri bs laterally. The lungs are grossly clear Signer Name: Manohar Marrufo MD Signed: 05/31/2020 12:36 AM Workstation Name: [id number] Transcribed By: BC Dictated By: Manohar Marrufo MD Electronically Authenticated By: Manohar Marrufo MD Signed Date/Time: 05/31/20 0036 Critical care attestation.: If time is entered above; I have spent that time in minutes in the direct care of this critically ill patient, excluding procedure time. ED Disposition Clinical Impression: Closed rib fracture Disposition: DC-01 TO HOME OR SELFCARE Is pt being admited?: No Does the pt Need Aspirin: No Condition: Stable Instructions: Rib Fracture (ED) Additional Instructions: Make sure to follow up with the primary care physician as discussed. Take all your medications as you've been prescribed. If you have any worsening symptoms or develop new symptoms please return to ED immediately. Prescriptions: Clindamycin [Clindamycin CAP] 300 mg PO TID #20 capsule HYDROcodone/APAP 5-325 [[place] 5-325 mg TAB] 1 each PO Q6H #12 tablet Referrals: PRIMARY CAREMD [Primary Care Provider] - 3-5 Days [facility] [Outside] - 3-5 Days [facility] [Outside] - 3-5 Days [facility] [Outside] - 3-5 Days Forms: Accompanied Note, Work/School Release Form(ED) Time of Disposition: 02:15
[2020-05-31 02:35] VITALS: BP 138/72
== END 2020-05-31 02:37 | disposition home or self-care (01) ==
LOC: ED 22:11
DX: S22.31XA Fracture of one rib, right side, initial encounter for closed fracture (principal); I10 Essential (primary) hypertension; E11.9 Type 2 diabetes mellitus without complications; F31.9 Bipolar disorder, unspecified; F43.10 Post-traumatic stress disorder, unspecified; Z98.890 Other specified postprocedural states; F17.200 Nicotine dependence, unspecified, uncomplicated; Z79.82 Long term (current) use of aspirin; Z79.899 Other long term (current) drug therapy; Z88.8 Allergy status to other drugs, medicaments and biological substances; W10.9XXA Fall (on) (from) unspecified stairs and steps, initial encounter; Y93.89 Activity, other specified; Y92.89 Other specified places as the place of occurrence of the external cause; Y99.8 Other external cause status
CPT/HCPCS: 71111

== ENCOUNTER 2020-07-19 21:33 | Inpatient (IN) | payer MEDICAID ==
--- NOTE | 2020-07-20 01:20 | Emergency Department Report ---
ED General Adult HPI - General Chief complaint: Extremity Injury, Lower Stated complaint: BACK PAIN PUI?: No Time Seen by Provider: 07/20/20 01:15 Source: patient Mode of arrival: Ambulatory Limitations: No Limitations - History of Present Illness Initial comments: Patient is a 55-year-old male that presents emergency room with complaints of right lower leg swelling and pain. Patient states he has neuropathy in his legs from uncontrolled diabetes. Patient states his pain is a 4 out of 10. Patient states it feels like a pressure. Patient states he is also having swelling. Patient states his swelling is better with rest and elevation. Patient states the swelling is worse with movement. Patient states the pain is better with rest and worse with movement. Patient denies fever and chills. Patient denies cough. Patient denies nausea vomiting. Patient denies chest pain or shortness of breath. Patient states he had back pain for 2 years. Patient states he needs to get in with pain management. Patient is states the back pain is a 10 out of 10. Patient states he took 80 units of regular insulin out in the bar, but his blood sugar was high. Patient denies recent travel. Patient denies recent international travel. Patient denies exposure to the novel coronavirus. Patient denies sick contacts. Patient denies fever and chills. Patient denies cough. Patient denies diarrhea. Patient denies coming in contact with anybody with symptoms of the novel coronavirus. -: Sudden Location: lower extremity Severity scale (0 -10): 4 Quality: aching Consistency: constant Improves with: rest Worsens with: movement Associated Symptoms: denies: confusion, chest pain, cough, diaphoresis, fever/chills, headaches, loss of appetite, malaise, nausea/vomiting, rash, seizure, shortness of breath, syncope, weakness Treatments Prior to Arrival: none - Related Data Home Medications Medication Instructions Recorded Confirmed Last Taken Pancresuhail Wang 10,500 Unit Cap 10,500 unit PO TID 02/28/19 03/24/20 Unknown Previous Rx's Medication Instructions Recorded Last Taken Type Aspirin EC [Halfprin EC] 81 mg PO QDAY tablet 03/27/20 Unknown Rx AtorvaSTATin [Lipitor] 40 mg PO QHS tablet 03/27/20 Unknown Rx Folic Acid [Folvite] 1 mg PO QDAY tablet 03/27/20 Unknown Rx Gabapentin 300 mg PO TID capsule 03/27/20 Unknown Rx Insulin Glargine [Lantus VIAL] 16 units SUB-Q QHS units 03/27/20 Unknown Rx Lipase/Protease/Amylase [Creon Dr 5 each PO AC capsule 03/27/20 Unknown Rx 12,000 Units] Lispro Insulin [HumaLOG] 0 unit SUB-Q ACHS units 03/27/20 Unknown Rx Melatonin [Melatonin 5MG TAB] 5 mg PO QHS PRN tablet 03/27/20 Unknown Rx Metoprolol [Lopressor TAB] 25 mg PO BID tablet 03/27/20 Unknown Rx Pantoprazole [Protonix TAB] 40 mg PO QDAY tablet 03/27/20 Unknown Rx QUEtiapine [SEROquel] 50 mg PO BID #60 tablet 03/27/20 Unknown Rx Thiamine [Vitamin B-1] 100 mg PO QDAY tablet 03/27/20 Unknown Rx Venlafaxine Xr [Effexor XR] 150 mg PO QDAY #30 capsule 03/27/20 Unknown Rx amLODIPine 10 mg PO QDAY tablet 03/27/20 Unknown Rx lisinopriL [Zestril TAB] 20 mg PO QDAY tablet 03/27/20 Unknown Rx traZODone [Desyrel] 50 mg PO QHS #30 tablet 03/27/20 Unknown Rx Clindamycin [Clindamycin CAP] 300 mg PO TID #20 capsule 05/31/20 Unknown Rx HYDROcodone/APAP 5-325 [[place] 1 each PO Q6H #12 tablet 05/31/20 Unknown Rx 5-325 mg TAB] Allergies Allergy/AdvReac Type Severity Reaction Status Date / Time ketorolac [From Toradol] Allergy Unknown Verified 07/19/20 23:29 ED Review of Systems ROS: Stated complaint: BACK PAIN Other details as noted in HPI Constitutional: denies: chills, fever Eyes: denies: eye pain, eye discharge, vision change ENT: denies: ear pain, throat pain Respiratory: denies: cough, shortness of breath, wheezing Cardiovascular: edema. denies: chest pain, palpitations Endocrine: no symptoms reported Gastrointestinal: denies: abdominal pain, nausea, diarrhea Genitourinary: denies: urgency, dysuria Musculoskeletal: back pain. denies: joint swelling, arthralgia Skin: denies: rash, lesions Neurological: denies: headache, weakness, paresthesias Psychiatric: denies: anxiety, depression Hematological/Lymphatic: denies: easy bleeding, easy bruising ED Past Medical Hx - Past Medical History Previous Medical History?: Yes Hx Hypertension: Yes Hx Congestive Heart Failure: No Hx Diabetes: Yes Hx Renal Disease: No Hx Arthritis: No Hx Seizures: No Hx Psychiatric Treatment: Yes (bipolar, PTSD, anxiety, ETOH abuse) Hx Asthma: No Hx COPD: No Hx Dementia: No Hx HIV: No Additional medical history: PAD, Pancreatitis, Neuropathy. DDD - Surgical History Past Surgical History?: Yes Hx Cholecystectomy: No Hx Appendectomy: No Additional Surgical History: Bilateral Inguinal Repair., left partial foot amputee. pancreatic - Family History Family history: no significant - Social History Smoking Status: Current Some Day Smoker Substance Use Type: None - Medications Home Medications: Home Medications Medication Instructions Recorded Confirmed Last Taken Type Pancresuhail Dr 10,500 Unit Cap 10,500 unit PO TID 02/28/19 03/24/20 Unknown History Aspirin EC [Halfprin EC] 81 mg PO QDAY tablet 03/27/20 Unknown Rx AtorvaSTATin [Lipitor] 40 mg PO QHS tablet 03/27/20 Unknown Rx Folic Acid [Folvite] 1 mg PO QDAY tablet 03/27/20 Unknown Rx Gabapentin 300 mg PO TID capsule 03/27/20 Unknown Rx Insulin Glargine [Lantus VIAL] 16 units SUB-Q QHS units 03/27/20 Unknown Rx Lipase/Protease/Amylase [Creon Dr 5 each PO AC capsule 03/27/20 Unknown Rx 12,000 Units] Lispro Insulin [HumaLOG] 0 unit SUB-Q ACHS units 03/27/20 Unknown Rx Melatonin [Melatonin 5MG TAB] 5 mg PO QHS PRN tablet 03/27/20 Unknown Rx Metoprolol [Lopressor TAB] 25 mg PO BID tablet 03/27/20 Unknown Rx Pantoprazole [Protonix TAB] 40 mg PO QDAY tablet 03/27/20 Unknown Rx QUEtiapine [SEROquel] 50 mg PO BID #60 tablet 03/27/20 Unknown Rx Thiamine [Vitamin B-1] 100 mg PO QDAY tablet 03/27/20 Unknown Rx Venlafaxine Xr [Effexor XR] 150 mg PO QDAY #30 capsule 03/27/20 Unknown Rx amLODIPine 10 mg PO QDAY tablet 03/27/20 Unknown Rx lisinopriL [Zestril TAB] 20 mg PO QDAY tablet 03/27/20 Unknown Rx traZODone [Desyrel] 50 mg PO QHS #30 tablet 03/27/20 Unknown Rx Clindamycin [Clindamycin CAP] 300 mg PO TID #20 capsule 05/31/20 Unknown Rx HYDROcodone/APAP 5-325 [[place] 1 each PO Q6H #12 tablet 05/31/20 Unknown Rx 5-325 mg TAB] ED Physical Exam - General Limitations: No Limitations General appearance: alert, in no apparent distress - Head Head exam: Present: atraumatic, normocephalic - Eye Eye exam: Present: normal appearance - ENT ENT exam: Present: mucous membranes moist - Neck Neck exam: Present: normal inspection - Respiratory Respiratory exam: Present: normal lung sounds bilaterally. Absent: respiratory distress - Cardiovascular Cardiovascular Exam: Present: regular rate, normal rhythm. Absent: systolic murmur, diastolic murmur, rubs, gallop - GI/Abdominal GI/Abdominal exam: Present: soft, normal bowel sounds - Rectal Rectal exam: Present: deferred - Extremities Exam Extremities exam: Present: full ROM, tenderness, pedal edema (Right lower extremity), calf tenderness (Right lower extremity tenderness.), other (Amputation to the left foot) - Back Exam Back exam: Present: normal inspection - Neurological Exam Neurological exam: Present: alert, oriented X3 - Psychiatric Psychiatric exam: Present: normal affect, normal mood - Skin Skin exam: Present: warm, dry, intact, normal color. Absent: rash ED Course Vital Signs 07/19/20 07/20/20 07/20/20 23:28 03:36 03:46 Temperature 97.9 F Pulse Rate 86 78 76 Respiratory 17 22 15 Rate Blood Pressure 155/90 120/68 O2 Sat by Pulse 99 98 99 Oximetry 07/20/20 07/20/20 04:00 04:16 Temperature Pulse Rate 78 75 Respiratory 25 H 22 Rate Blood Pressure 120/68 O2 Sat by Pulse 99 96 Oximetry - Reevaluation(s) Reevaluation #1: Patient took extra insulin while in the ER. Patient is confused at this time. Patient slow but answering most questions. Patient was given D50 because his blood sugar is 87 on the patient's machine and he has a metabolic acidosis. Patient will be given D50. Patient also be placed on a DKA protocol. Nurse unable to obtain IV and a right EJ placed. See procedure note. 07/20/20 03:15 Reevaluation #2: Patient's answering questions appropriate. Patient denies suicidal ideations. Patient denies trying to hurt himself. Patient states he was just trying to bring his sugar down. 07/20/20 03:26 Reevaluation #3: Other amp of D50 to bring his sugar above 250. Patient will continue on the D5 half-normal saline and once the blood sugar is 250 he will be started on insulin. Patient oriented x3. 07/20/20 04:00 Reevaluation #4: I discussed all results with patient. I discussed plan of care with patient. Patient agrees with plan of care and admission. Patient to be admitted to the hospitalist service. 07/20/20 04:38 Reevaluation #5: Patient's blood sugar is decreasing. Patient was given another 3 ampS of D50. While on D5 half-normal with 20 of K. Patient states he is feeling better. 07/20/20 04:52 Patient's blood sugar is 400. Patient will be started on insulin drip. 07/20/20 05:07 - Consultations Consultation #1: Hospitalist consulted for admission. Hospitalist to admit patient. 07/20/20 04:38 - EJ/Peripheral Line Neck R Time Out Performed: Yes Indications: nurses unable to establis Skin Cleansed in Sterile Fashion: Yes Size: 18 Dressing Placed: Tegaderm, tape Patient Tolerated Procedure: well, no complications ED Medical Decision Making - Lab Data Result diagrams: 07/20/20 01:28 07/20/20 01:28 - Radiology Data Radiology results: report reviewed DUPLEX DOPPLER LOWER EXTREMITY VEINS, RIGHT INDICATION / CLINICAL INFORMATION: lower ext pain and swelling. TECHNIQUE: Duplex doppler imaging was performed through the veins of the right lower extremity using venous compression and other maneuvers. COMPARISON: None available. FINDINGS: RIGHT COMMON FEMORAL VEIN: Negative. RIGHT FEMORAL VEIN: Negative. RIGHT POPLITEAL VEIN: Negative. RIGHT CALF VEINS: Negative. ADDITIONAL FINDINGS: None. IMPRESSION: 1. No sonographic evidence for DVT in the right lower extremity. - Medical Decision Making Patient is a 55-year-old male who presents emergency room with complaints of hyperglycemia and lower extremity swelling and pain. Patient complained of right lower extremity pain and swelling. Patient had ultrasound of his right lower extremity was negative for acute findings and DVT. Patient had labs done" of hyperglycemia. Patient found to have metabolic acidosis. Patient gave himself 80 units of regular insulin while waiting in the waiting room. Which explains the patient's mildly elevated blood sugar and metabolic acidosis. Patient then gave himself more insulin in side the ER and his sugar dropped to 87. Patient was given multiple amps of D50 in order to bring his sugar up. While the patient sugar was 87, the patient was altered. After the patient was given D50 the patient's mentation improved. Patient was placed on a DKA protocol however we held the insulin drip until the sugar went over 250. Patient has multiple lab abnormalities to include metabolic acidosis, DKA, anemia, hypo-kalemia, renal insufficiency. Patient admitted into the ICU and to the hospitalist service. Patient admitted to the hospital service for further evaluation and treatment. - Differential Diagnosis Metabolic acidosis, hyperglycemia, lower extremity pain and swelling, DVT, Critical Care Time: Yes Critical care time in (mins) excluding proc time.: 35 Critical care attestation.: If time is entered above; I have spent that time in minutes in the direct care of this critically ill patient, excluding procedure time. Critical Care Time: 35 MINUTES ED Disposition Clinical Impression: Metabolic acidosis, NARAYAN (acute kidney injury), Swelling of lower extremity, Insulin dependent diabetes mellitus, Acute metabolic encephalopathy due to hypoglycemia, Transaminitis Lower extremity pain Qualifiers: Laterality: right Qualified Code(s): M79.604 - Pain in right leg Overdose of insulin Qualifiers: Encounter type: initial encounter Injury intent: accidental or unintentional Qualified Code(s): T38.3X1A - Poisoning by insulin and oral hypoglycemic [antidiabetic] drugs, accidental (unintentional), initial encounter DKA, type 1 Qualifiers: Diabetes mellitus complication detail: with coma Qualified Code(s): E10.11 - Type 1 diabetes mellitus with ketoacidosis with coma Disposition: 09 OP ADMIT IP TO THIS HOSP Is pt being admited?: Yes Does the pt Need Aspirin: No Condition: Critical Time of Disposition: 04:37
[2020-07-20 01:51] LABS: Hemoglobin 10.2 gm/dl (11.8-15.2); Mean Corpuscular HGB Conc 35 % (32-34); Mean Corpuscular Volume 94 fl (84-94); Platelet Count 182 K/mm3 (140-440); Red Blood Count 3.08 M/mm3 (3.65-5.03); Red Cell Distribution Width 13.1 % (13.2-15.2)
[2020-07-20 02:17] LABS: Albumin 3.6 g/dL (3.9-5); Calcium 8.6 mg/dL (8.4-10.2)
--- NOTE | 2020-07-20 02:44 | Vascular Lab Report ---
DUPLEX DOPPLER LOWER EXTREMITY VEINS, RIGHT INDICATION / CLINICAL INFORMATION: lower ext pain and swelling. TECHNIQUE: Duplex doppler imaging was performed through the veins of the right lower extremity using venous comp ression and other maneuvers. COMPARISON: None available. FINDINGS: RIGHT COMMON FEMORAL VEIN: Negative. RIGHT FEMORAL VEIN: Negative. RIGHT POPLITEAL VEIN: Negative. RIGHT CALF VEINS: Negative. ADDITIONAL FINDINGS: None. IMPRESSION: 1. No sonographic evidence for DVT in the right lower extremity. Signer Name: Hill Sahni MD Signed: 07/20/2020 2:39 AM Workstation Name: [id number]
[2020-07-20] MEDS ORDERED: SODIUM CHLORIDE 0.9% 1000 ML 1,000 ML IV ONE ×2 (02:47→03:28)
[2020-07-20] MEDS ORDERED: DEXTROSE 50% IN WATER (25GM) 50 ML SYRINGE IV ONE ×4 (03:27→04:57)
[2020-07-20] MEDS: DEXTROSE 50% IN WATER (25GM) 50 ML SYRINGE IV PRN ×2 (03:40→03:41)
[2020-07-20] MEDS ORDERED: D5W/0.45% NACL/KCL 20 MEQ 20 MEQ/1,000 ML BAG IV SCH (04:00)
[2020-07-20] MEDS ORDERED: INSULIN REGULAR, HUMAN 100 UNITS in SODIUM CHLORIDE 0.9% 99 ML IV SCH (04:00)
[2020-07-20] MEDS ORDERED: DEXTROSE 50% IN WATER (25GM) 50 ML SYRINGE IV PRN (08:48)
--- NOTE | 2020-07-20 08:50 | History and Physical Report ---
History of Present Illness Date of examination: 07/20/20 Date of admission: 07/20/20 04:39 Chief complaint: High blood glucose History of present illness: 55-year-old male with a DM, GERD, peripheral artery disease s/p left TMA who presents emergency room with complaints of right lower leg swelling and pain. Patient states he has neuropathy in his legs from uncontrolled diabetes. Patient states his pain is a 4 out of 10. Patient states it feels like a pressure. Patient states he is also having swelling. Patient states his swelling is better with rest and elevation. Patient states the swelling is worse with movement. Patient states the pain is better with rest and worse with movement. Patient denies fever and chills. Patient denies cough. Patient de nies nausea vomiting. Patient denies chest pain or shortness of breath. Patient states he had back pain for 2 years. Patient states he needs to get in with pain management. Patient is states the back pain is a 10 out of 10. Patient states he took 80 units of regular insulin out in the bar, but his blood sugar was high. Here in the ER he was noted to have metabolic acidosis and high blood glucose. Was admitted to the ICU for management of DKA. Patient seen and examined at bedside this morning. Reviewed labs. Plan to resume Lantus this morning and stop insulin drip after CMP result consult. Past History Past Medical History: diabetes, PVD Medications and Allergies Allergies Allergy/AdvReac Type Severity Reaction Status Date / Time ketorolac [From Toradol] Allergy Unknown Verified 07/19/20 23:29 Home Medications Medication Instructions Recorded Confirmed Last Taken Type Bob Wang 10,500 Unit Cap 10,500 unit PO TID 02/28/19 07/20/20 Unknown History Aspirin EC [Halfprin EC] 81 mg PO QDAY tablet 03/27/20 Unknown Rx AtorvaSTATin [Lipitor] 40 mg PO QHS tablet 03/27/20 07/20/20 Unknown Rx Folic Acid [Folvite] 1 mg PO QDAY tablet 03/27/20 07/20/20 Unknown Rx Gabapentin 300 mg PO TID capsule 03/27/20 07/20/20 Unknown Rx Insulin Glargine [Lantus VIAL] 16 units SUB-Q QHS units 03/27/20 07/20/20 Unknown Rx Lipase/Protease/Amylase [Kalyan Wang 5 each PO AC capsule 03/27/20 07/20/20 Unknown Rx 12,000 Units] Lispro Insulin [HumaLOG] 0 unit SUB-Q ACHS units 03/27/20 07/20/20 Unknown Rx Melatonin [Melatonin 5MG TAB] 5 mg PO QHS PRN tablet 03/27/20 07/20/20 Unknown Rx Metoprolol [Lopressor TAB] 25 mg PO BID tablet 03/27/20 07/20/20 Unknown Rx Pantoprazole [Protonix TAB] 40 mg PO QDAY tablet 03/27/20 07/20/20 Unknown Rx QUEtiapine [SEROquel] 50 mg PO BID #60 tablet 03/27/20 07/20/20 Unknown Rx Thiamine [Vitamin B-1] 100 mg PO QDAY tablet 03/27/20 07/20/20 Unknown Rx Venlafaxine Xr [Effexor XR] 150 mg PO QDAY #30 capsule 03/27/20 07/20/20 Unknown Rx amLODIPine 10 mg PO QDAY tablet 03/27/20 07/20/20 Unknown Rx lisinopriL [Zestril TAB] 20 mg PO QDAY tablet 03/27/20 07/20/20 Unknown Rx traZODone [Desyrel] 50 mg PO QHS #30 tablet 03/27/20 07/20/20 Unknown Rx Clindamycin [Clindamycin CAP] 300 mg PO TID #20 capsule 05/31/20 07/20/20 Unknown Rx HYDROcodone/APAP 5-325 [[place] 1 each PO Q6H #12 tablet 05/31/20 07/20/20 Unknown Rx 5-325 mg TAB] Active Meds: Active Medications Dextrose (D50w (25gm) Syringe) 50 ml IV Q30MIN PRN; Protocol PRN Reason: Hypoglycemia Last Admin: 07/20/20 03:41 Dose: 50 ml Documented by: Insulin Human Regular 100 (units/ Sodium Chloride) 100 mls @ 1 mls/hr IV TITR YAEL; Protocol Last Titration: 07/20/20 07:10 Dose: 1.5 units/hr, 1.5 mls/hr Documented by: Potassium Chloride/Dextrose/Sod Cl (D5w/0.45% Nacl/Kcl 20 Meq) 20 meq in 1,000 mls @ 125 mls/hr IV DIRECT YAEL Last Admin: 07/20/20 04:11 Dose: 125 mls/hr Documented by: Sodium Chloride (Sodium Chloride Flush Syringe 10 Ml) 10 ml IV BID YAEL Exam - Constitutional Vitals: Temp Pulse Resp BP Pulse Ox 98.0 F 76 22 163/142 100 07/20/20 08:08 07/20/20 05:30 07/20/20 05:30 07/20/20 05:30 07/20/20 05:30 General appearance: Present: no acute distress, well-nourished - EENT Eyes: Present: PERRL ENT: hearing intact, clear oral mucosa - Neck Neck: Present: supple, normal ROM - Respiratory Respiratory effort: normal Respiratory: bilateral: CTA - Cardiovascular Heart Sounds: Present: S1 & S2. Absent: rub, click - Extremities Extremities: pulses symmetrical Extremity abnormal: edema Peripheral Pulses: within normal limits - Abdominal General gastrointestinal: Present: soft, non-tender, non-distended, normal bowel sounds Male genitourinary: Present: normal - Integumentary Integumentary: Present: clear, warm, dry - Musculoskeletal Musculoskeletal: gait normal, strength equal bilaterally - Psychiatric Psychiatric: appropriate mood/affect, intact judgment & insight - Neurologic Neurologic: CNII-XII intact, moves all extremities Results - Labs CBC & Chem 7: 07/20/20 01:28 07/20/20 01:28 Labs: Laboratory Last Values WBC 7.9 K/mm3 (4.5-11.0) 07/20/20 01:28 RBC 3.08 M/mm3 (3.65-5.03) L 07/20/20 01:28 Hgb 10.2 gm/dl (11.8-15.2) L 07/20/20 01:28 Hct 29.0 % (35.5-45.6) L 07/20/20 01:28 MCV 94 fl (84-94) 07/20/20 01:28 MCH 33 pg (28-32) H 07/20/20 01:28 MCHC 35 % (32-34) H 07/20/20 01:28 RDW 13.1 % (13.2-15.2) L 07/20/20 01:28 Plt Count 182 K/mm3 (140-440) 07/20/20 01:28 VBG pH 7.149 (7.320-7.420) L* 07/20/20 03:37 Sodium 146 mmol/L (137-145) H 07/20/20 01:28 Potassium 3.5 mmol/L (3.6-5.0) L 07/20/20 01:28 Chloride 116.4 mmol/L (98-107) H 07/20/20 01:28 Carbon Dioxide 16 mmol/L (22-30) L 07/20/20 01:28 Anion Gap 17 mmol/L 07/20/20 01:28 BUN 21 mg/dL (9-20) H 07/20/20 01:28 Creatinine 1.3 mg/dL (0.8-1.3) 07/20/20 01:28 Estimated GFR 57 ml/min 07/20/20 01:28 BUN/Creatinine Ratio 16 % 07/20/20 01:28 Glucose 210 mg/dL (75-100) H 07/20/20 01:28 POC Glucose 151 (70-105) H 07/20/20 08:16 Lactic Acid 1.60 mmol/L (0.7-2.0) 07/20/20 03:37 Calcium 8.6 mg/dL (8.4-10.2) 07/20/20 01:28 Total Bilirubin 0.20 mg/dL (0.1-1.2) 07/20/20 01:28 AST 213 units/L (5-40) H 07/20/20 01:28 ALT 433 units/L (7-56) H 07/20/20 01:28 Alkaline Phosphatase 310 units/L (35-129) H 07/20/20 01:28 Total Protein 5.7 g/dL (6.3-8.2) L 07/20/20 01:28 Albumin 3.6 g/dL (3.9-5) L 07/20/20 01:28 Albumin/Globulin Ratio 1.7 % 07/20/20 01:28 Plasma/Serum Alcohol < 0.01 % (0-0.07) 07/20/20 02:50 Christensen/IV: IV Catheter Type [Right Peripheral IV External Jugular] Assessment and Plan Assessment and plan: 5-year-old male with a medical history of diabetes presenting with bilateral lower extremity pain and swelling and admitted on glucose. In the ER, patient noted to have metabolic acidosis and hypoglycemia. He was admitted to the ICU for management of DKA. - Patient Problems (1) DKA, type 1 Current Visit: Yes Status: Acute Qualifiers: Diabetes mellitus complication detail: with coma Qualified Code(s): E10.11 - Type 1 diabetes mellitus with ketoacidosis with coma Plan to address problem: Start Lantus and stop insulin drip as per protocol Resume sliding scale insulin Follow-up with endocrinology in the office advised (2) Lower extremity pain Current Visit: Yes Status: Acute Qualifiers: Laterality: right Qualified Code(s): M79.604 - Pain in right leg Plan to address problem: Patient has a history of peripheral vascular disease with previous left TMA Ultrasound arterial Doppler ordered. May need vascular intervention for possible ischemic pain in the lower extremities (3) PAD (peripheral artery disease) Current Visit: No Status: Acute (4) DVT prophylaxis Current Visit: No Status: Acute Plan to address problem: Heparin subcutaneous 3 times a day
[2020-07-20 09:21] LABS: Calcium 8.1 mg/dL (8.4-10.2)
[2020-07-20 09:22] LABS: Calcium 8.1 mg/dL (8.4-10.2)
[2020-07-20] MEDS: PANTOPRAZOLE 40 MG TAB PO SCH (10:38)
[2020-07-20] MEDS: amLODIPine 10 MG TAB PO SCH (10:39)
[2020-07-20] MEDS: FOLIC ACID 1 MG TAB PO SCH (10:40)
[2020-07-20] MEDS: INSULIN GLARGINE 100 UNITS/ML SUB-Q SCH (10:40)
[2020-07-20] MEDS: LIPASE 12,000/PROTEASE 38,000/AMYLASE 60,000 (UNITS) DR CAP PO SCH ×2 (10:41→19:11)
[2020-07-20] MEDS: ASPIRIN EC 81 MG TAB PO SCH (10:41)
[2020-07-20] MEDS: METOPROLOL TARTRATE 25 MG TAB PO SCH ×2 (10:42→22:38)
[2020-07-20] MEDS: QUEtiapine 25 MG TAB PO SCH ×2 (10:48→22:40)
[2020-07-20] MEDS: THIAMINE 100 MG TAB PO SCH (10:48)
[2020-07-20] MEDS: VENLAFAXINE XR 75 MG CAP PO SCH (10:48)
--- NOTE | 2020-07-20 11:28 | Vascular Lab Report ---
DUPLEX DOPPLER LOWER EXTREMITY ARTERIAL, BILATERAL INDICATION: Peripheral vascular disease. TECHNIQUE: Arterial duplex examination of both lower extremities performed using B-mode, color flow and spectral Doppler assessment. FINDINGS: RIGHT: Common Femoral Artery: PSV 93 cm/sec. Triphasic waveform. Proximal SFA: PSV 126 cm/sec. Triphasic waveform. Mid SFA: PSV 106 cm/sec. Triphasic waveform. Distal SFA: PSV 87 cm/sec. Triphasic waveform. Popliteal artery: PSV 201 cm/sec. Triphasic waveform. Posterior tibial artery: PSV 75 cm/sec. Triphasic waveform. Dorsalis Pedis Artery: PSV 41 cm/sec. Biphasic waveform. LEFT: Common Femoral Artery: PSV 106 cm/sec. Triphasic waveform. Proximal SFA: PSV 100 cm/sec. Triphasic waveform. Mid SFA: PSV 98 cm/sec. Triphasic waveform. Distal SFA: PSV 82 cm/sec. Triphasic waveform. Popliteal artery: PSV 68 cm/sec. Triphasic waveform. Posterior tibial artery: PSV 23 cm/sec. Monophasic waveform. Dorsalis Pedis Artery: Not seen. IMPRESSION: 1. Elevated peak systolic velocity along the right popliteal artery is compatible with a moderate noelle nosis. No other evidence of hemodynamically significant right lower extremity peripheral vascular dis ease. 2. Diminished flow in the left posterior tibial artery with an abnormal waveform, consistent with at least moderate obstructive disease. 3. Nonvisualization of the left dorsalis pedis artery. 4. No other sonographic evidence of hemodynamically significant left lower extremity peripheral vascu lar disease. Ankle-Brachial Index (QUENTIN): * Calcified arteries > 1.4 * Normal = 0.9-1.4 * Mild PAD = 0.7-0.89 * Moderate PAD = 0.51-0.69 * Severe PAD < 0.5 Doppler Waveform: * Triphasic is normal. * Biphasic is abnormal if clear transition from triphasic signal along vascular tree. * Monophasic is abnormal. Signer Name: Luis Daniel Pedraza MD Signed: 07/20/2020 11:24 AM Workstation Name: [id number]
[2020-07-20] MEDS: INSULIN LISPRO 100 UNIT/ML VIAL 3 mL SUB-Q SCH ×2 (12:45→19:11)
[2020-07-20] MEDS ORDERED: MORPHINE 2 MG/1 ML INJ IV PRN (13:46)
[2020-07-20] MEDS ORDERED: HYDROcodone/ACETAMINOPHEN 5-325 MG TAB PO PRN (14:10)
[2020-07-20] MEDS: GABAPENTIN 300 MG CAP PO SCH ×2 (14:27→22:12)
[2020-07-20] MEDS: SODIUM BICARBONATE 650 MG TAB PO SCH ×2 (14:30→22:12)
[2020-07-20] MEDS: HEPARIN 5,000 UNIT/1 ML VIAL SUB-Q SCH ×2 (14:31→22:12)
[2020-07-20] MEDS: LORazepam 2 MG/ML VIAL IV PRN (16:53)
[2020-07-20 20:22] LABS: Calcium 7.9 mg/dL (8.4-10.2)
[2020-07-20] MEDS ORDERED: MELATONIN 5 MG TAB PO PRN (22:00)
[2020-07-20] MEDS: traZODone 50 MG TAB PO SCH (22:40)
[2020-07-21] MEDS: HEPARIN 5,000 UNIT/1 ML VIAL SUB-Q SCH ×3 (05:46→21:19)
[2020-07-21 06:41] LABS: Calcium 8.2 mg/dL (8.4-10.2)
[2020-07-21] MEDS: SODIUM BICARBONATE 650 MG TAB PO SCH ×3 (08:43→20:45)
[2020-07-21] MEDS: INSULIN GLARGINE 100 UNITS/ML SUB-Q SCH (08:43)
[2020-07-21] MEDS: LIPASE 12,000/PROTEASE 38,000/AMYLASE 60,000 (UNITS) DR CAP PO SCH ×3 (08:43→17:34)
[2020-07-21] MEDS: INSULIN LISPRO 100 UNIT/ML VIAL 3 mL SUB-Q SCH ×6 (08:44→23:51)
[2020-07-21] MEDS: GABAPENTIN 300 MG CAP PO SCH ×3 (08:44→20:45)
[2020-07-21] MEDS: THIAMINE 100 MG TAB PO SCH (09:03)
[2020-07-21] MEDS: PANTOPRAZOLE 40 MG TAB PO SCH (09:03)
[2020-07-21] MEDS: FOLIC ACID 1 MG TAB PO SCH (09:03)
[2020-07-21] MEDS: METOPROLOL TARTRATE 25 MG TAB PO SCH ×2 (09:03→22:57)
[2020-07-21] MEDS: ASPIRIN EC 81 MG TAB PO SCH (09:03)
[2020-07-21] MEDS: QUEtiapine 25 MG TAB PO SCH ×2 (09:03→21:20)
[2020-07-21] MEDS: amLODIPine 10 MG TAB PO SCH (09:04)
[2020-07-21] MEDS ORDERED: SODIUM BICARBONATE 50 MEQ in SODIUM CHLORIDE 0.9% 1000 ML 1,000 ML IV SCH (10:00)
--- NOTE | 2020-07-21 10:03 | Progress Note ---
Assessment and Plan Assessment and plan: 55-year-old male with a medical history of diabetes presenting with bilateral lower extremity pain and swelling and admitted on glucose. In the ER, patient noted to have metabolic acidosis and hypoglycemia. He was admitted to the ICU for management of DKA. - Patient Problems (1) DKA, type 1 Current Visit: Yes Status: Acute Qualifiers: Diabetes mellitus complication detail: with coma Qualified Code(s): E10.11 - Type 1 diabetes mellitus with ketoacidosis with coma Plan to address problem: Start Lantus and stop insulin drip as per protocol Resume sliding scale insulin Follow-up with endocrinology in the office advised (2) Lower extremity pain Current Visit: Yes Status: Acute Qualifiers: Laterality: right Qualified Code(s): M79.604 - Pain in right leg Plan to address problem: Patient has a history of peripheral vascular disease with previous left TMA Ultrasound arterial Doppler ordered. May need vascular intervention for possible ischemic pain in the lower extremities (3) PAD (peripheral artery disease) Current Visit: No Status: Acute (4) DVT prophylaxis Current Visit: No Status: Acute Plan to address problem: Heparin subcutaneous 3 times a day Hospitalist Physical - Constitutional Vitals: Temp Pulse Resp BP Pulse Ox 97.9 F 91 H 20 100/65 92 07/21/20 05:42 07/20/20 22:38 07/21/20 05:42 07/21/20 05:42 07/20/20 22:33 General appearance: Present: no acute distress, well-nourished - EENT Eyes: Present: PERRL - Respiratory Respiratory effort: normal Respiratory: bilateral: CTA - Extremities Extremities: No edema - Abdominal General gastrointestinal: soft, non-tender, non-distended - Neurologic Neurologic: CNII-XII intact Results - Labs CBC & Chem 7: 07/20/20 01:28 07/21/20 05:54 Labs: Laboratory Last Values WBC 7.9 K/mm3 (4.5-11.0) 07/20/20 01:28 RBC 3.08 M/mm3 (3.65-5.03) L 07/20/20 01:28 Hgb 10.2 gm/dl (11.8-15.2) L 07/20/20 01:28 Hct 29.0 % (35.5-45.6) L 07/20/20 01:28 MCV 94 fl (84-94) 07/20/20 01:28 MCH 33 pg (28-32) H 07/20/20 01:28 MCHC 35 % (32-34) H 07/20/20 01:28 RDW 13.1 % (13.2-15.2) L 07/20/20 01:28 Plt Count 182 K/mm3 (140-440) 07/20/20 01:28 VBG pH 7.149 (7.320-7.420) L* 07/20/20 03:37 Sodium 141 mmol/L (137-145) 07/21/20 05:54 Potassium 4.6 mmol/L (3.6-5.0) 07/21/20 05:54 Chloride 115.6 mmol/L (98-107) H 07/21/20 05:54 Carbon Dioxide 16 mmol/L (22-30) L 07/21/20 05:54 Anion Gap 14 mmol/L 07/21/20 05:54 BUN 21 mg/dL (9-20) H 07/21/20 05:54 Creatinine 1.3 mg/dL (0.8-1.3) 07/21/20 05:54 Estimated GFR 57 ml/min 07/21/20 05:54 BUN/Creatinine Ratio 16 % 07/21/20 05:54 Glucose 247 mg/dL (75-100) H 07/21/20 05:54 POC Glucose 243 (70-105) H 07/21/20 07:48 Lactic Acid 1.60 mmol/L (0.7-2.0) 07/20/20 03:37 Calcium 8.2 mg/dL (8.4-10.2) L 07/21/20 05:54 Total Bilirubin 0.20 mg/dL (0.1-1.2) 07/20/20 08:18 AST 176 units/L (5-40) H 07/20/20 08:18 ALT 340 units/L (7-56) H 07/20/20 08:18 Alkaline Phosphatase 246 units/L (35-129) H 07/20/20 08:18 Total Protein 4.7 g/dL (6.3-8.2) L 07/20/20 08:18 Albumin 3.0 g/dL (3.9-5) L 07/20/20 08:18 Albumin/Globulin Ratio 1.8 % 07/20/20 08:18 Plasma/Serum Alcohol < 0.01 % (0-0.07) 07/20/20 02:50 Christensen/IV: Voiding Method Urinal IV Catheter Type [Left Hand] INT / Saline Lock IV Catheter Type [Right Peripheral IV External Jugular] Active Medications - Current Medications Current Medications: Generic Name Dose Route Start Last Admin Trade Name Freq PRN Reason Stop Dose Admin Acetaminophen/Hydrocodone Bitart 1 each 07/20/20 14:10 07/20/20 14:27 [place] 5/325 PO 1 each Q8H PRN Administration Pain, Moderate (4-6) Amlodipine Besylate 10 mg 07/20/20 10:00 07/21/20 09:04 Amlodipine PO 10 mg QDAY YAEL Administration Lipase/Protease/Amylase 5 each 07/20/20 11:30 07/21/20 08:[address] 12,000 Units PO 5 each AC YAEL Administration Aspirin 81 mg 07/20/20 10:00 07/21/20 09:03 Halfprin Ec PO 81 mg QDAY YAEL Administration Atorvastatin Calcium 40 mg 07/20/20 22:00 07/20/20 22:12 Lipitor PO 40 mg QHS YAEL Administration Dextrose 50 ml 07/20/20 08:48 D50w (25gm) Syringe IV Q30MIN PRN Hypoglycemia Protocol Folic Acid 1 mg 07/20/20 10:00 07/21/20 09:03 Folvite PO 1 mg QDAY YAEL Administration Furosemide 20 mg 07/21/20 10:00 Lasix IV QDAY YAEL Gabapentin 300 mg 07/20/20 14:00 07/21/20 08:44 Gabapentin PO 300 mg TID YAEL Administration Heparin Sodium (Porcine) 5,000 unit 07/20/20 14:00 07/21/20 05:46 Heparin SUB-Q 5,000 unit Q8HR YAEL Administration Sodium Bicarbonate 50 meq/ 1,050 mls @ 100 mls/hr 07/21/20 10:00 Sodium Chloride IV DIRECT YAEL Insulin Glargine 16 units 07/20/20 09:00 07/21/20 08:43 Lantus SUB-Q 16 units QAMDIAB YAEL Administration Insulin Human Lispro 0 unit 07/20/20 11:30 07/21/20 08:44 Humalog SUB-Q 4 unit AC YAEL Administration Protocol Insulin Human Lispro 4 unit 07/21/20 11:30 Humalog SUB-Q ACHS YAEL Lorazepam 2 mg 07/20/20 16:39 07/20/20 16:53 Ativan IV 2 mg Q4H PRN Administration Agitation Melatonin 5 mg 07/20/20 22:00 Melatonin PO QHS PRN Sleep Metoprolol Tartrate 25 mg 07/20/20 10:00 07/21/20 09:03 Metoprolol PO 25 mg BID YAEL Administration Morphine Sulfate 2 mg 07/20/20 13:46 Morphine IV Q4H PRN Pain, Moderate (4-6) Pantoprazole Sodium 40 mg 07/20/20 10:00 07/21/20 09:03 Protonix PO 40 mg QDAY YAEL Administration Quetiapine Fumarate 50 mg 07/20/20 10:00 07/21/20 09:03 Seroquel PO 50 mg BID YAEL Administration Sodium Bicarbonate 650 mg 07/20/20 14:11 07/21/20 08:43 Sodium Bicarbonate PO 650 mg TID YAEL Administration Sodium Chloride 10 ml 07/20/20 10:00 07/21/20 09:04 Sodium Chloride Flush Syringe 10 Ml IV 10 ml BID YAEL Administration Sodium Chloride 10 ml 07/20/20 08:45 Sodium Chloride Flush Syringe 10 Ml IV PRN PRN LINE FLUSH Thiamine HCl 100 mg 07/20/20 10:00 07/21/20 09:03 Vitamin B-1 PO 100 mg QDAY YAEL Administration Trazodone HCl 50 mg 07/20/20 22:00 07/20/20 22:40 Desyrel PO Not Given QHS YAEL Venlafaxine HCl 150 mg 07/20/20 10:00 07/20/20 10:48 Effexor Xr PO 150 mg QDAY YAEL Administration Nutrition/Malnutrition Assess - Dietary Evaluation Nutrition/Malnutrition Findings: Nutrition Notes Start: 07/20/20 15:01 Freq: Status: Active Protocol: Document 07/20/20 15:01 PASTORA (Rec: 07/20/20 15:06 PASTORA [id number]) Co-Sign 07/20/20 15:01 LP Nutrition Notes 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 DM1 with left foot amputation. PMH of non- compliance Current Diet Consistent Carbohydrate Subjective/Other Information Pt left CCU prior to RD visit. Unable to see on 3A today. Nutrition Intervention Follow-Up By: 07/21/20 Additional Comments F/u on wound care, intakes, possible malnutrition. Check need for diet education.
--- NOTE | 2020-07-21 10:09 | Consultation ---
History of Present Illness - Reason for Consult Consult date: 07/21/20 Reason for consult: hallucinations - History of Present Psychiatric Illness The patient's medical record was reviewed and the patient's progress was discussed with the nursing staff. The nurse caring for the patient states he was awake this morning, and had no problems I attempted to interview the patient this morning, he is lying in bed somnolent. The patient is very difficulty to arouses. He wakens but drift back out. The patient would respond briefly to vigorous tactile stimulation. He would speak incomprehensibly and then drift back off. Could not get the patient engaged enough to complete interview even with cold towel on his head. PSYCHIATRIC HISTORY Unable to complete FAMILY HISTORY Unable to complete MEDICAL HISTORY Unable to complete REVIEW OF SYSTEMS Unable to obtain MENTAL STATUS EXAMINATION Unable to complete Assessment (1) Altered Mental Status PLAN Continue current medications ordered Sitter: Per primary Medical: Per primary Disposition: TBD Will follow. Thank you for this consult. Medications and Allergies Allergies Allergy/AdvReac Type Severity Reaction Status Date / Time ketorolac [From Toradol] Allergy Unknown Verified 07/19/20 23:29 Home Medications Medication Instructions Recorded Confirmed Last Taken Type Pancresuhail Wang 10,500 Unit Cap 10,500 unit PO TID 02/28/19 07/20/20 Unknown History Aspirin EC [Halfprin EC] 81 mg PO QDAY tablet 03/27/20 07/20/20 Unknown Rx AtorvaSTATin [Lipitor] 40 mg PO QHS tablet 03/27/20 07/20/20 Unknown Rx Folic Acid [Folvite] 1 mg PO QDAY tablet 03/27/20 07/20/20 Unknown Rx Gabapentin 300 mg PO TID capsule 03/27/20 07/20/20 Unknown Rx Insulin Glargine [Lantus VIAL] 16 units SUB-Q QHS units 03/27/20 07/20/20 07/19/20 Rx Lipase/Protease/Amylase [Kalyan Wang 5 each PO AC capsule 03/27/20 07/20/20 Unknown Rx 12,000 Units] Lispro Insulin [HumaLOG] 0 unit SUB-Q ACHS units 03/27/20 07/20/20 Unknown Rx Melatonin [Melatonin 5MG TAB] 5 mg PO QHS PRN tablet 03/27/20 07/20/20 Unknown Rx Metoprolol [Lopressor TAB] 25 mg PO BID tablet 03/27/20 07/20/20 Unknown Rx Pantoprazole [Protonix TAB] 40 mg PO QDAY tablet 03/27/20 07/20/20 Unknown Rx QUEtiapine [SEROquel] 50 mg PO BID #60 tablet 03/27/20 07/20/20 Unknown Rx Thiamine [Vitamin B-1] 100 mg PO QDAY tablet 03/27/20 07/20/20 Unknown Rx Venlafaxine Xr [Effexor XR] 150 mg PO QDAY #30 capsule 03/27/20 07/20/20 Unknown Rx amLODIPine 10 mg PO QDAY tablet 03/27/20 07/20/20 07/19/20 Rx lisinopriL [Zestril TAB] 20 mg PO QDAY tablet 03/27/20 07/20/20 07/19/20 Rx traZODone [Desyrel] 50 mg PO QHS #30 tablet 03/27/20 07/20/20 Unknown Rx Clindamycin [Clindamycin CAP] 300 mg PO TID #20 capsule 05/31/20 07/20/20 Unknown Rx HYDROcodone/APAP 5-325 [[place] 1 each PO Q6H #12 tablet 05/31/20 07/20/20 Unknown Rx 5-325 mg TAB] Active Meds: Active Medications Acetaminophen/Hydrocodone Bitart ([place] 5/325) 1 each PO Q8H PRN PRN Reason: Pain, Moderate (4-6) Last Admin: 07/20/20 14:27 Dose: 1 each Documented by: Amlodipine Besylate (Amlodipine) 10 mg PO QDAY [facility] Last Admin: 07/21/20 09:04 Dose: 10 mg Documented by: Lipase/Protease/Amylase (Kalyan Wang 12,000 Units) 5 each PO AC [facility] Last Admin: 07/21/20 08:43 Dose: 5 each Documented by: Aspirin (Halfprin Ec) 81 mg PO QDAY [facility] Last Admin: 07/21/20 09:03 Dose: 81 mg Documented by: Atorvastatin Calcium (Lipitor) 40 mg PO QHS [facility] Last Admin: 07/20/20 22:12 Dose: 40 mg Documented by: Dextrose (D50w (25gm) Syringe) 50 ml IV Q30MIN PRN; Protocol PRN Reason: Hypoglycemia Folic Acid (Folvite) 1 mg PO QDAY [facility] Last Admin: 07/21/20 09:03 Dose: 1 mg Documented by: Furosemide (Lasix) 20 mg IV QDAY [facility] Gabapentin (Gabapentin) 300 mg PO TID [facility] Last Admin: 07/21/20 08:44 Dose: 300 mg Documented by: Heparin Sodium (Porcine) (Heparin) 5,000 unit SUB-Q Q8HR [facility] Last Admin: 07/21/20 05:46 Dose: 5,000 unit Documented by: Sodium Bicarbonate 50 meq/ (Sodium Chloride) 1,050 mls @ 100 mls/hr IV DIRECT [facility] Insulin Glargine (Lantus) 16 units SUB-Q QAMDIAB [facility] Last Admin: 07/21/20 08:43 Dose: 16 units Documented by: Insulin Human Lispro (Humalog) 0 unit SUB-Q AC [facility]; Protocol Last Admin: 07/21/20 08:44 Dose: 4 unit Documented by: Insulin Human Lispro (Humalog) 4 unit SUB-Q ACHS [facility] Lorazepam (Ativan) 2 mg IV Q4H PRN PRN Reason: Agitation Last Admin: 07/20/20 16:53 Dose: 2 mg Documented by: Melatonin (Melatonin) 5 mg PO QHS PRN PRN Reason: Sleep Metoprolol Tartrate (Metoprolol) 25 mg PO BID [facility] Last Admin: 07/21/20 09:03 Dose: 25 mg Documented by: Morphine Sulfate (Morphine) 2 mg IV Q4H PRN PRN Reason: Pain, Moderate (4-6) Pantoprazole Sodium (Protonix) 40 mg PO QDAY [facility] Last Admin: 07/21/20 09:03 Dose: 40 mg Documented by: Quetiapine Fumarate (Seroquel) 50 mg PO BID [facility] Last Admin: 07/21/20 09:03 Dose: 50 mg Documented by: Sodium Bicarbonate (Sodium Bicarbonate) 650 mg PO TID [facility] Last Admin: 07/21/20 08:43 Dose: 650 mg Documented by: Sodium Chloride (Sodium Chloride Flush Syringe 10 Ml) 10 ml IV BID [facility] Last Admin: 07/21/20 09:04 Dose: 10 ml Documented by: Sodium Chloride (Sodium Chloride Flush Syringe 10 Ml) 10 ml IV PRN PRN PRN Reason: LINE FLUSH Thiamine HCl (Vitamin B-1) 100 mg PO QDAY [facility] Last Admin: 07/21/20 09:03 Dose: 100 mg Documented by: Trazodone HCl (Desyrel) 50 mg PO QHS [facility] Last Admin: 07/20/20 22:40 Dose: Not Given Documented by: Venlafaxine HCl (Effexor Xr) 150 mg PO QDAY [facility] Last Admin: 07/20/20 10:48 Dose: 150 mg Documented by: Mental Status Exam - Vital signs Last Vital Signs Temp 97.9 F 07/21/20 05:42 Pulse 91 H 07/20/20 22:38 Resp 20 07/21/20 05:42 BP 100/65 07/21/20 05:42 Pulse Ox 92 07/20/20 22:33 Results Result Diagrams: 07/20/20 01:28 07/21/20 05:54 Abnormal lab results 07/20/20 07/20/20 07/20/20 Range/Units 07:20 11:53 16:40 Chloride (98-107) mmol/L Carbon Dioxide (22-30) mmol/L BUN (9-20) mg/dL Creatinine (0.8-1.3) mg/dL Glucose (75-100) mg/dL POC Glucose 132 H 181 H 161 H (70-105) Calcium (8.4-10.2) mg/dL 07/20/20 07/20/20 07/21/20 Range/Units 19:04 22:47 05:54 Chloride 112.4 H 115.6 H (98-107) mmol/L Carbon Dioxide 18 L 16 L (22-30) mmol/L BUN 21 H (9-20) mg/dL Creatinine 1.4 H (0.8-1.3) mg/dL Glucose 170 H 247 H (75-100) mg/dL POC Glucose 226 H (70-105) Calcium 7.9 L 8.2 L (8.4-10.2) mg/dL 07/21/20 Range/Units 07:48 Chloride (98-107) mmol/L Carbon Dioxide (22-30) mmol/L BUN (9-20) mg/dL Creatinine (0.8-1.3) mg/dL Glucose (75-100) mg/dL POC Glucose 243 H (70-105) Calcium (8.4-10.2) mg/dL All other labs normal.
[2020-07-21] MEDS: FUROSEMIDE 20 MG/2 ML INJ IV SCH (10:12)
[2020-07-21] MEDS: VENLAFAXINE XR 75 MG CAP PO SCH (14:34)
[2020-07-21] MEDS: LORazepam 2 MG/ML VIAL IV PRN ×2 (15:16→23:50)
[2020-07-21] MEDS: traZODone 50 MG TAB PO SCH (21:21)
[2020-07-22 03:12] LABS: Calcium 8.3 mg/dL (8.4-10.2)
[2020-07-22] MEDS: LORazepam 2 MG/ML VIAL IV PRN (05:12)
[2020-07-22] MEDS: HEPARIN 5,000 UNIT/1 ML VIAL SUB-Q SCH ×3 (05:12→22:54)
--- NOTE | 2020-07-22 08:59 | Progress Note ---
Subjective - Reason for Consult Consult date: 07/22/20 Reason for consult: AMS - Chief Complaint Chief complaint: The patient's medical record was reviewed and the patient's progress was discussed with the nursing staff. The nurse caring for the patient states the patient was given ativan this morning for severe agitation. I attempted to interview the patient this morning, just as yesterday, he is very difficulty to arouse long enough to engage in the interview. The patient awakes briefly and drifts back off. He is disheveled. His speech is garbled and disorganized when speaking. His thinking is disorganized. He appears to be hallucinating. When asking about hallucinations, the patient states, "no," and goes back to sleep. He arouses and raises his cover in the air with his hands. He then reaches in the air. When asked about hallucinations, Mr. Mello replies "no but my foot." Spoke with the patient's daughter, Carmen. She says she is concerned because when she spoke to the patient last night, his speech was severely garbled and she couldn't understand him. She says her father was not like that prior to coming. She also says the patient wasn't making sense. She says he's been fine on his medications, but she says she feels his mental health may be declining. Carmen states the patient has a long psychiatric history with multiple suicide attempts. She says he is a recovering alcoholic and has been 40 days clean to her knowledge. MENTAL STATUS EXAMINATION Unable to complete Assessment Altered Mental Status PLAN Initiate 1013 Continue CIWA Increase Seroquel 100mg po BID Start Depakote DR 125mg po BID Sitter: Per primary Medical: Per primary Disposition: Recommend acute inpatient psychiatric treatment. Will follow. Thank you for this consult. Mental Status Exam - Vital signs Last Vital Signs Temp 98.1 F 07/22/20 05:25 Pulse 100 H 07/22/20 05:25 Resp 20 07/22/20 05:25 BP 147/99 07/22/20 05:25 Pulse Ox 91 07/22/20 05:25
[2020-07-22] MEDS: SODIUM BICARBONATE 650 MG TAB PO SCH ×3 (09:00→22:53)
[2020-07-22] MEDS: GABAPENTIN 300 MG CAP PO SCH ×3 (09:00→22:54)
[2020-07-22] MEDS: INSULIN GLARGINE 100 UNITS/ML SUB-Q SCH (09:00)
[2020-07-22] MEDS: INSULIN LISPRO 100 UNIT/ML VIAL 3 mL SUB-Q SCH ×7 (09:00→23:07)
[2020-07-22] MEDS: LIPASE 12,000/PROTEASE 38,000/AMYLASE 60,000 (UNITS) DR CAP PO SCH ×3 (09:33→18:07)
--- NOTE | 2020-07-22 09:39 | Progress Note ---
Assessment and Plan Assessment and plan: 55-year-old male with a medical history of diabetes presenting with bilateral lower extremity pain and swelling and admitted on glucose. In the ER, patient noted to have metabolic acidosis and hypoglycemia. He was admitted to the ICU for management of DKA. 07/21. Labs reviewed. Off insulin drip. Psych consulted 07/22. Has no complaints today. Glucose better. Psych evaluation appreciated. He will need inpatient psych admission - Patient Problems (1) DKA, type 1 Current Visit: Yes Status: Acute Qualifiers: Diabetes mellitus complication detail: with coma Qualified Code(s): E10.11 - Type 1 diabetes mellitus with ketoacidosis with coma Plan to address problem: Lantus and lispro Follow-up with endocrinology in the office advised (2) Lower extremity pain Current Visit: Yes Status: Acute Qualifiers: Laterality: right Qualified Code(s): M79.604 - Pain in right leg Plan to address problem: Patient has a history of peripheral vascular disease with previous left TMA Ultrasound arterial Doppler results reviewed He will follow up with vascular surgery in the office (3) PAD (peripheral artery disease) Current Visit: No Status: Acute Plan to address problem: Management as above (4) Metabolic acidosis Current Visit: Yes Status: Acute Plan to address problem: Continue bicarb tablets. DC bicarbonate drip. (5) Swelling of lower extremity Current Visit: Yes Status: Acute Plan to address problem: Lasix as needed (6) Anxiety and depression Current Visit: No Status: Acute Plan to address problem: Patient has been seen by psychiatry who recommended acute inpatient hospitalization. (7) DVT prophylaxis Current Visit: No Status: Acute Plan to address problem: Heparin subcutaneous 3 times a day History Interval history: He has no complaints. Has been seen by psych and he will need inpatient psych rehab Hospitalist Physical - Constitutional Vitals: Temp Pulse Resp BP Pulse Ox 98.1 F 100 H 20 147/99 91 07/22/20 05:25 07/22/20 05:25 07/22/20 05:25 07/22/20 05:25 07/22/20 05:25 General appearance: Present: no acute distress, well-nourished - EENT Eyes: Present: PERRL - Neck Neck: Present: supple - Respiratory Respiratory: bilateral: CTA - Cardiovascular Rhythm: regular Heart Sounds: Present: S1 & S2 - Extremities Extremity abnormal: edema (Trace) - Abdominal General gastrointestinal: soft, non-tender, non-distended, normal bowel sounds - Psychiatric Psychiatric: appropriate mood/affect - Neurologic Neurologic: CNII-XII intact Results - Labs CBC & Chem 7: 07/20/20 01:28 07/22/20 02:13 Labs: Laboratory Last Values WBC 7.9 K/mm3 (4.5-11.0) 07/20/20 01:28 RBC 3.08 M/mm3 (3.65-5.03) L 07/20/20 01:28 Hgb 10.2 gm/dl (11.8-15.2) L 07/20/20 01:28 Hct 29.0 % (35.5-45.6) L 07/20/20 01:28 MCV 94 fl (84-94) 07/20/20 01:28 MCH 33 pg (28-32) H 07/20/20 01:28 MCHC 35 % (32-34) H 07/20/20 01:28 RDW 13.1 % (13.2-15.2) L 07/20/20 01:28 Plt Count 182 K/mm3 (140-440) 07/20/20 01:28 VBG pH 7.149 (7.320-7.420) L* 07/20/20 03:37 Sodium 145 mmol/L (137-145) 07/22/20 02:13 Potassium 3.8 mmol/L (3.6-5.0) 07/22/20 02:13 Chloride 114.3 mmol/L (98-107) H 07/22/20 02:13 Carbon Dioxide 19 mmol/L (22-30) L 07/22/20 02:13 Anion Gap 16 mmol/L 07/22/20 02:13 BUN 18 mg/dL (9-20) 07/22/20 02:13 Creatinine 1.3 mg/dL (0.8-1.3) 07/22/20 02:13 Estimated GFR 57 ml/min 07/22/20 02:13 BUN/Creatinine Ratio 14 % 07/22/20 02:13 Glucose 87 mg/dL (75-100) 07/22/20 02:13 POC Glucose 95 (70-105) 07/22/20 08:08 Lactic Acid 1.60 mmol/L (0.7-2.0) 07/20/20 03:37 Calcium 8.3 mg/dL (8.4-10.2) L 07/22/20 02:13 Total Bilirubin 0.20 mg/dL (0.1-1.2) 07/20/20 08:18 AST 176 units/L (5-40) H 07/20/20 08:18 ALT 340 units/L (7-56) H 07/20/20 08:18 Alkaline Phosphatase 246 units/L (35-129) H 07/20/20 08:18 Total Protein 4.7 g/dL (6.3-8.2) L 07/20/20 08:18 Albumin 3.0 g/dL (3.9-5) L 07/20/20 08:18 Albumin/Globulin Ratio 1.8 % 07/20/20 08:18 Plasma/Serum Alcohol < 0.01 % (0-0.07) 07/20/20 02:50 Christensen/IV: Voiding Method Urinal IV Catheter Type [Left Forearm INT / Saline Lock ] IV Catheter Type [Right INT / Saline Lock Forearm] IV Catheter Type [Left Hand] INT / Saline Lock IV Catheter Type [Right Peripheral IV External Jugular] Active Medications - Current Medications Current Medications: Generic Name Dose Route Start Last Admin Trade Name Freq PRN Reason Stop Dose Admin Acetaminophen/Hydrocodone Bitart 1 each 07/20/20 14:10 07/20/20 14:27 Millsap 5/325 PO 1 each Q8H PRN Administration Pain, Moderate (4-6) Amlodipine Besylate 10 mg 07/20/20 10:00 07/21/20 09:04 Amlodipine PO 10 mg QDAY YAEL Administration Lipase/Protease/Amylase 5 each 07/20/20 11:30 07/22/20 09:33 Kalyan Wang 12,000 Units PO Not Given AC YAEL Aspirin 81 mg 07/20/20 10:00 07/21/20 09:03 Halfprin Ec PO 81 mg QDAY YAEL Administration Atorvastatin Calcium 40 mg 07/20/20 22:00 07/21/20 21:20 Lipitor PO 40 mg QHS YAEL Administration Dextrose 50 ml 07/20/20 08:48 07/21/20 17:07 D50w (25gm) Syringe IV 50 ml Q30MIN PRN Administration Hypoglycemia Protocol Divalproex Sodium 125 mg 07/22/20 10:[address] PO BID YAEL Folic Acid 1 mg 07/20/20 10:00 07/21/20 09:03 Folvite PO 1 mg QDAY AYEL Administration Furosemide 20 mg 07/21/20 10:00 07/21/20 10:12 Lasix IV 20 mg QDAY YAEL Administration Gabapentin 300 mg 07/20/20 14:00 07/21/20 20:45 Gabapentin PO 300 mg TID YAEL Administration Heparin Sodium (Porcine) 5,000 unit 07/20/20 14:00 07/22/20 05:12 Heparin SUB-Q 5,000 unit Q8HR YAEL Administration Sodium Bicarbonate 50 meq/ 1,050 mls @ 100 mls/hr 07/21/20 10:00 07/21/20 10:12 Sodium Chloride IV 100 mls/hr DIRECT YAEL Administration Insulin Glargine 16 units 07/20/20 09:00 07/22/20 09:00 Lantus SUB-Q Not Given QAMDIAB YAEL Insulin Human Lispro 0 unit 07/20/20 11:30 07/22/20 09:00 Humalog SUB-Q Not Given AC [facility] Protocol Insulin Human Lispro 4 unit 07/21/20 11:30 07/22/20 09:00 Humalog SUB-Q Not Given ACHS YAEL Lorazepam 2 mg 07/20/20 16:39 07/22/20 05:12 Ativan IV 2 mg Q4H PRN Administration Agitation Melatonin 5 mg 07/20/20 22:00 Melatonin PO QHS PRN Sleep Metoprolol Tartrate 25 mg 07/20/20 10:00 07/21/20 22:57 Metoprolol PO 25 mg BID YAEL Administration Morphine Sulfate 2 mg 07/20/20 13:46 Morphine IV Q4H PRN Pain, Moderate (4-6) Pantoprazole Sodium 40 mg 07/20/20 10:00 07/21/20 09:03 Protonix PO 40 mg QDAY YAEL Administration Quetiapine Fumarate 100 mg 07/22/20 10:00 Seroquel PO BID YAEL Sodium Bicarbonate 650 mg 07/20/20 14:11 07/21/20 20:45 Sodium Bicarbonate PO 650 mg TID YAEL Administration Sodium Chloride 10 ml 07/20/20 10:00 07/21/20 21:20 Sodium Chloride Flush Syringe 10 Ml IV 10 ml BID YAEL Administration Sodium Chloride 10 ml 07/20/20 08:45 Sodium Chloride Flush Syringe 10 Ml IV PRN PRN LINE FLUSH Thiamine HCl 100 mg 07/20/20 10:00 07/21/20 09:03 Vitamin B-1 PO 100 mg QDAY YAEL Administration Trazodone HCl 50 mg 07/20/20 22:00 07/21/20 21:21 Desyrel PO 50 mg QHS YAEL Administration Venlafaxine HCl 150 mg 07/20/20 10:00 07/21/20 14:34 Effexor Xr PO Not Given QDAY [facility] Nutrition/Malnutrition Assess - Dietary Evaluation Nutrition/Malnutrition Findings: Nutrition Notes Start: 07/20/20 15:01 Freq: Status: Active Protocol: Document 07/21/20 12:36 CHRIS (Rec: 07/21/20 13:04 CHRIS [id number]) Co-Sign 07/21/20 12:36 LM Nutrition Notes Initial or Follow up Brief Note Current Diagnosis Diabetes Other Pertinent Diagnosis DKA, left foot amputation Current Diet Consistent Carbohydrate Subjective/Other Information Unable to reach pt. Pt did not answer first call, hung up on second call. Nutrition Intervention Follow-Up By: 07/24/20 Additional Comments F/U for height, assessment, diet ed needs
[2020-07-22] MEDS: amLODIPine 10 MG TAB PO SCH (12:42)
[2020-07-22] MEDS: VENLAFAXINE XR 75 MG CAP PO SCH (12:43)
[2020-07-22] MEDS: FOLIC ACID 1 MG TAB PO SCH (12:43)
[2020-07-22] MEDS: FUROSEMIDE 20 MG/2 ML INJ IV SCH (12:43)
[2020-07-22] MEDS: ASPIRIN EC 81 MG TAB PO SCH (12:46)
[2020-07-22] MEDS: QUEtiapine 100 MG TAB PO SCH ×2 (12:53→22:54)
[2020-07-22] MEDS: PANTOPRAZOLE 40 MG TAB PO SCH (12:53)
[2020-07-22] MEDS: THIAMINE 100 MG TAB PO SCH (12:54)
[2020-07-22] MEDS: METOPROLOL TARTRATE 25 MG TAB PO SCH ×2 (13:01→22:54)
[2020-07-22] MEDS: DIVALPROEX DR 125 MG TAB PO SCH ×2 (13:36→22:53)
--- NOTE | 2020-07-22 14:35 | Discharge Summary ---
Providers - Providers Date of Admission: 07/20/20 04:39 Date of discharge: 07/22/20 Attending physician: KARON LÓPEZ 07/20/20 11:41 Consult to Wound/ET Nurse [CONS] Urgent Reason For Exam: Pt has left foot partial amputation 07/20/20 16:40 psychiatry consult [Consult to Mental Health] [CONS] Routine Reason For Exam: Hallucinations Primary care physician: STORE CUSTODIAN Hospitalization Condition: Critical Hospital course: 55-year-old male with a medical history of diabetes presenting with bilateral lower extremity pain and swelling and admitted on glucose. In the ER, patient noted to have metabolic acidosis and hypoglycemia. He was admitted to the ICU for management of DKA. 07/21. Labs reviewed. Off insulin drip. Psych consulted 07/22. Has no complaints today. Glucose better. Psych evaluation appreciated. He will need inpatient psych admission. Discussed with employment evaluator/case manager Disposition: [id number]/[id number] HOSP/PSY UNIT - Discharge Diagnoses (1) DKA, type 1 Status: Acute Qualifiers: Diabetes mellitus complication detail: with coma Qualified Code(s): E10.11 - Type 1 diabetes mellitus with ketoacidosis with coma (2) Lower extremity pain Status: Acute Qualifiers: Laterality: right Qualified Code(s): M79.604 - Pain in right leg (3) PAD (peripheral artery disease) Status: Acute (4) Metabolic acidosis Status: Acute (5) Swelling of lower extremity Status: Acute (6) Anxiety and depression Status: Acute (7) DVT prophylaxis Status: Acute Core Measure Documentation - Palliative Care Palliative Care/ Comfort Measures: Not Applicable - Core Measures Any of the following diagnoses?: none Exam - Constitutional Vitals: Temp Pulse Resp BP Pulse Ox 98.0 F 111 H 20 172/102 94 07/22/20 12:01 07/22/20 13:01 07/22/20 12:01 07/22/20 13:01 07/22/20 12:01 General appearance: Present: no acute distress, well-nourished - EENT Eyes: Present: PERRL ENT: hearing intact, clear oral mucosa - Neck Neck: Present: supple, normal ROM - Respiratory Respiratory effort: normal Respiratory: bilateral: CTA - Cardiovascular Heart Sounds: Present: S1 & S2. Absent: rub, click - Extremities Extremities: pulses symmetrical, No edema Peripheral Pulses: within normal limits - Abdominal General gastrointestinal: Present: soft, non-tender, non-distended, normal bowel sounds Male genitourinary: Present: normal - Integumentary Integumentary: Present: clear, warm, dry - Musculoskeletal Musculoskeletal: gait normal, strength equal bilaterally - Psychiatric Psychiatric: appropriate mood/affect, intact judgment & insight - Neurologic Neurologic: CNII-XII intact, moves all extremities Plan Diet: diabetic Additional Instructions: Continue medications. Follow up with psych after dc from acute inpatient psych facility Follow up with: PRIMARY CARE, [Primary Care Provider] - 7 Days Prescriptions: Insulin Lispro [Humalog] 4 unit SUB-Q ACHS #1 vial
[2020-07-23] MEDS: traZODone 50 MG TAB PO SCH (00:08)
[2020-07-23] MEDS: HEPARIN 5,000 UNIT/1 ML VIAL SUB-Q SCH ×2 (06:19→13:33)
[2020-07-23] MEDS: GABAPENTIN 300 MG CAP PO SCH ×2 (08:22→13:32)
[2020-07-23] MEDS: SODIUM BICARBONATE 650 MG TAB PO SCH ×2 (08:23→13:32)
[2020-07-23] MEDS: LIPASE 12,000/PROTEASE 38,000/AMYLASE 60,000 (UNITS) DR CAP PO SCH ×3 (08:23→17:40)
[2020-07-23] MEDS: INSULIN GLARGINE 100 UNITS/ML SUB-Q SCH (08:24)
[2020-07-23] MEDS: INSULIN LISPRO 100 UNIT/ML VIAL 3 mL SUB-Q SCH ×6 (08:25→17:00)
--- NOTE | 2020-07-23 09:45 | Progress Note ---
Assessment and Plan Assessment and plan: 55-year-old male with a medical history of diabetes presenting with bilateral lower extremity pain and swelling and admitted on glucose. In the ER, patient noted to have metabolic acidosis and hypoglycemia. He was admitted to the ICU for management of DKA. 07/21. Labs reviewed. Off insulin drip. Psych consulted 07/22. Has no complaints today. Glucose better. Psych evaluation appreciated. He will need inpatient psych admission. Discussed with spring encaser 07/23. Blood glucose is acceptable. Awaiting placement to psych inpatient - Patient Problems (1) DKA, type 1 Current Visit: Yes Status: Resolved Qualifiers: Diabetes mellitus complication detail: with coma Qualified Code(s): E10.11 - Type 1 diabetes mellitus with ketoacidosis with coma Plan to address problem: Lantus and lispro Follow-up with endocrinology in the office advised (2) Lower extremity pain Current Visit: Yes Status: Chronic Qualifiers: Laterality: right Qualified Code(s): M79.604 - Pain in right leg Plan to address problem: Patient has a history of peripheral vascular disease with previous left TMA Ultrasound arterial Doppler results reviewed He will follow up with vascular surgery in the office (3) PAD (peripheral artery disease) Current Visit: No Status: Chronic Plan to address problem: Management as above (4) Metabolic acidosis Current Visit: Yes Status: Acute Plan to address problem: Continue bicarb tablets. (5) Swelling of lower extremity Current Visit: Yes Status: Acute Plan to address problem: Lasix as needed (6) Anxiety and depression Current Visit: No Status: Acute Plan to address problem: Patient has been seen by psychiatry who recommended acute inpatient hospitalization. (7) DVT prophylaxis Current Visit: No Status: Acute Plan to address problem: Heparin subcutaneous 3 times a day History Interval history: He has no complaints this morning. Has been seen by psych and he will need inpatient psych rehab. He is medically stable for discharge Hospitalist Physical - Constitutional Vitals: Temp Pulse Resp BP Pulse Ox 98.3 F 85 18 134/81 95 07/23/20 05:49 07/23/20 06:22 07/23/20 06:22 07/23/20 05:49 07/23/20 06:22 General appearance: Present: no acute distress, well-nourished - Neck Neck: Present: supple - Respiratory Respiratory: bilateral: CTA - Cardiovascular Rhythm: regular Heart Sounds: Present: S1 & S2 - Abdominal General gastrointestinal: soft, non-tender, non-distended, normal bowel sounds - Neurologic Neurologic: CNII-XII intact Results - Labs CBC & Chem 7: 07/20/20 01:28 07/22/20 02:13 Labs: Laboratory Last Values WBC 7.9 K/mm3 (4.5-11.0) 07/20/20 01:28 RBC 3.08 M/mm3 (3.65-5.03) L 07/20/20 01:28 Hgb 10.2 gm/dl (11.8-15.2) L 07/20/20 01:28 Hct 29.0 % (35.5-45.6) L 07/20/20 01:28 MCV 94 fl (84-94) 07/20/20 01:28 MCH 33 pg (28-32) H 07/20/20 01:28 MCHC 35 % (32-34) H 07/20/20 01:28 RDW 13.1 % (13.2-15.2) L 07/20/20 01:28 Plt Count 182 K/mm3 (140-440) 07/20/20 01:28 VBG pH 7.149 (7.320-7.420) L* 07/20/20 03:37 Sodium 145 mmol/L (137-145) 07/22/20 02:13 Potassium 3.8 mmol/L (3.6-5.0) 07/22/20 02:13 Chloride 114.3 mmol/L (98-107) H 07/22/20 02:13 Carbon Dioxide 19 mmol/L (22-30) L 07/22/20 02:13 Anion Gap 16 mmol/L 07/22/20 02:13 BUN 18 mg/dL (9-20) 07/22/20 02:13 Creatinine 1.3 mg/dL (0.8-1.3) 07/22/20 02:13 Estimated GFR 57 ml/min 07/22/20 02:13 BUN/Creatinine Ratio 14 % 07/22/20 02:13 Glucose 87 mg/dL (75-100) 07/22/20 02:13 POC Glucose 211 (70-105) H 07/23/20 08:31 Lactic Acid 1.60 mmol/L (0.7-2.0) 07/20/20 03:37 Calcium 8.3 mg/dL (8.4-10.2) L 07/22/20 02:13 Total Bilirubin 0.20 mg/dL (0.1-1.2) 07/20/20 08:18 AST 176 units/L (5-40) H 07/20/20 08:18 ALT 340 units/L (7-56) H 07/20/20 08:18 Alkaline Phosphatase 246 units/L (35-129) H 07/20/20 08:18 Total Protein 4.7 g/dL (6.3-8.2) L 07/20/20 08:18 Albumin 3.0 g/dL (3.9-5) L 07/20/20 08:18 Albumin/Globulin Ratio 1.8 % 07/20/20 08:18 Plasma/Serum Alcohol < 0.01 % (0-0.07) 07/20/20 02:50 Christensen/IV: Voiding Method Condom Catheter IV Catheter Type [Left Forearm INT / Saline Lock ] IV Catheter Type [Right INT / Saline Lock Forearm] IV Catheter Type [Left Hand] INT / Saline Lock IV Catheter Type [Right Peripheral IV External Jugular] Active Medications - Current Medications Current Medications: Generic Name Dose Route Start Last Admin Trade Name Freq PRN Reason Stop Dose Admin Acetaminophen/Hydrocodone Bitart 1 each 07/20/20 14:10 07/20/20 14:27 Dubois 5/325 PO 1 each Q8H PRN Administration Pain, Moderate (4-6) Amlodipine Besylate 10 mg 07/20/20 10:00 07/22/20 12:42 Amlodipine PO 10 mg QDAY YAEL Administration Lipase/Protease/Amylase 5 each 07/20/20 11:30 07/23/20 08:[address] 12,000 Units PO 5 each AC YAEL Administration Aspirin 81 mg 07/20/20 10:00 07/22/20 12:46 Halfprin Ec PO 81 mg QDAY YAEL Administration Atorvastatin Calcium 40 mg 07/20/20 22:00 07/22/20 22:54 Lipitor PO 40 mg QHS YAEL Administration Dextrose 50 ml 07/20/20 08:48 07/21/20 17:07 D50w (25gm) Syringe IV 50 ml Q30MIN PRN Administration Hypoglycemia Protocol Divalproex Sodium 125 mg 07/22/20 10:00 07/22/20 22:[address] PO 125 mg BID YAEL Administration Folic Acid 1 mg 07/20/20 10:00 07/22/20 12:43 Folvite PO 1 mg QDAY YAEL Administration Furosemide 20 mg 07/21/20 10:00 07/22/20 12:43 Lasix IV 20 mg QDAY YAEL Administration Gabapentin 300 mg 07/20/20 14:00 07/23/20 08:22 Gabapentin PO 300 mg TID YAEL Administration Heparin Sodium (Porcine) 5,000 unit 07/20/20 14:00 07/23/20 06:19 Heparin SUB-Q 5,000 unit Q8HR YAEL Administration Sodium Bicarbonate 50 meq/ 1,050 mls @ 100 mls/hr 07/21/20 10:00 07/21/20 10:12 Sodium Chloride IV 100 mls/hr DIRECT YAEL Administration Insulin Glargine 16 units 07/20/20 09:00 07/23/20 08:24 Lantus SUB-Q 16 units QAMDIAB YAEL Administration Insulin Human Lispro 0 unit 07/20/20 11:30 07/23/20 08:25 Humalog SUB-Q 4 unit AC YAEL Administration Protocol Insulin Human Lispro 4 unit 07/21/20 11:30 07/23/20 08:25 Humalog SUB-Q 4 unit ACHS YAEL Administration Lorazepam 2 mg 07/20/20 16:39 07/22/20 05:12 Ativan IV 2 mg Q4H PRN Administration Agitation Melatonin 5 mg 07/20/20 22:00 Melatonin PO QHS PRN Sleep Metoprolol Tartrate 25 mg 07/20/20 10:00 07/22/20 22:54 Metoprolol PO 25 mg BID YAEL Administration Morphine Sulfate 2 mg 07/20/20 13:46 Morphine IV Q4H PRN Pain, Moderate (4-6) Pantoprazole Sodium 40 mg 07/20/20 10:00 07/22/20 12:53 Protonix PO 40 mg QDAY YAEL Administration Quetiapine Fumarate 100 mg 07/22/20 10:00 07/22/20 22:54 Seroquel PO 100 mg BID YAEL Administration Sodium Bicarbonate 650 mg 07/20/20 14:11 07/23/20 08:23 Sodium Bicarbonate PO 650 mg TID YAEL Administration Sodium Chloride 10 ml 07/20/20 10:00 07/22/20 22:55 Sodium Chloride Flush Syringe 10 Ml IV 10 ml BID YAEL Administration Sodium Chloride 10 ml 07/20/20 08:45 Sodium Chloride Flush Syringe 10 Ml IV PRN PRN LINE FLUSH Thiamine HCl 100 mg 07/20/20 10:00 07/22/20 12:54 Vitamin B-1 PO 100 mg QDAY YAEL Administration Trazodone HCl 50 mg 07/20/20 22:00 07/23/20 00:08 Desyrel PO Not Given QHS YAEL Venlafaxine HCl 150 mg 07/20/20 10:00 07/22/20 12:43 Effexor Xr PO 150 mg QDAY YAEL Administration Nutrition/Malnutrition Assess - Dietary Evaluation Nutrition/Malnutrition Findings: Nutrition Notes Start: 07/20/20 15:01 Freq: Status: Active Protocol: Document 07/21/20 12:36 CHRIS (Rec: 07/21/20 13:04 CHRIS [id number]) Co-Sign 07/21/20 12:36 LM Nutrition Notes Initial or Follow up Brief Note Current Diagnosis Diabetes Other Pertinent Diagnosis DKA, left foot amputation Current Diet Consistent Carbohydrate Subjective/Other Information Unable to reach pt. Pt did not answer first call, hung up on second call. Nutrition Intervention Follow-Up By: 07/24/20 Additional Comments F/U for height, assessment, diet ed needs
--- NOTE | 2020-07-23 09:49 | Progress Note ---
Subjective - Reason for Consult Consult date: 07/23/20 Reason for consult: AMS - Chief Complaint Chief complaint: The patient's medical record was reviewed and the patient's progress was discussed with the nursing staff. During my interview with the patient today, he is sitting up in bed eating. He is a/o x 3. The patient is lucid today, and conversational. His speech is clear. He is calm and cooperative. He makes good eye contact. The patient states he's been "resting well." He describes his mood as "good." He denies SI/HI. He also denies hallucinations of any kind. The patient states, "I think finally getting my meds straight." He then says, "yea, I feel better." REVIEW OF SYSTEMS Constitutional: Negative for weight loss ENT: Negative for stridor Respiratory: Negative for cough or hemoptysis All other systems reviewed and are negative MENTAL STATUS EXAMINATION General Appearance; Dressed appropriately Behavior: Calm and cooperative. Good eye contact Mood: "good" Affect and affective range: Congruent with stated mood Thought Process: Fluent/Logical Thought Content: Within reality Speech: Normal volume, Regular rate and rhythm Suicidal Ideation: Denies Homicidal Ideation: Denies Hallucinations: Denies Delusions: None elicited Insight and Judgment: Limited Memory/Cognition: Normal Attention: Normal Orientation: Alert, oriented Assessment Altered Mental Status PLAN D/c 1013 Scripts Seroquel 100mg po BID Depakote DR 125mg po BID Sitter: Per primary Medical: Per primary Disposition: Do not recommend acute inpatient psychiatric treatment. He may discharge home once medically clear. The patient is to follow up with outpatient psych or primary in 7 to 14 days upon discharge Will sign off. Thank you for this consult. Mental Status Exam - Vital signs Last Vital Signs Temp 98.3 F 07/23/20 05:49 Pulse 85 07/23/20 06:22 Resp 18 07/23/20 06:22 BP 134/81 07/23/20 05:49 Pulse Ox 95 07/23/20 06:22
[2020-07-23 10:29] VITALS: BP 151/87
[2020-07-23] MEDS: ASPIRIN EC 81 MG TAB PO SCH (10:35)
[2020-07-23] MEDS: PANTOPRAZOLE 40 MG TAB PO SCH (10:35)
[2020-07-23] MEDS: METOPROLOL TARTRATE 25 MG TAB PO SCH (10:36)
[2020-07-23] MEDS: FUROSEMIDE 20 MG/2 ML INJ IV SCH (10:37)
[2020-07-23] MEDS: THIAMINE 100 MG TAB PO SCH (10:37)
[2020-07-23] MEDS: amLODIPine 10 MG TAB PO SCH (10:37)
[2020-07-23] MEDS: QUEtiapine 100 MG TAB PO SCH (10:37)
[2020-07-23] MEDS: FOLIC ACID 1 MG TAB PO SCH (10:37)
[2020-07-23] MEDS: DIVALPROEX DR 125 MG TAB PO SCH (10:40)
[2020-07-23] MEDS: VENLAFAXINE XR 75 MG CAP PO SCH (10:40)
--- NOTE | 2020-07-23 15:41 | Discharge Summary ---
Providers - Providers Date of Admission: 07/20/20 04:39 Date of discharge: 07/23/20 Attending physician: KARON LÓPEZ 07/20/20 11:41 Consult to Wound/ET Nurse [CONS] Urgent Reason For Exam: Pt has left foot partial amputation 07/20/20 16:40 psychiatry consult [Consult to Mental Health] [CONS] Routine Reason For Exam: Hallucinations Primary care physician: SOCIAL SERVICES SPECIALIST Hospitalization Condition: Critical Hospital course: 55-year-old male with a medical history of diabetes presenting with bilateral lower extremity pain and swelling and admitted on glucose. In the ER, patient noted to have metabolic acidosis and hypoglycemia. He was admitted to the ICU for management of DKA. 07/21. Labs reviewed. Off insulin drip. Psych consulted 07/22. Has no complaints today. Glucose better. Psych evaluation appreciated. He will need inpatient psych admission. Discussed with counseling case manager 07/23. Blood glucose is acceptable. Psych has cleared him for DC. He is medically stable to return home today. Disposition: DC-01 TO HOME OR SELFCARE - Discharge Diagnoses (1) DKA, type 1 Status: Resolved Qualifiers: Diabetes mellitus complication detail: with coma Qualified Code(s): E10.11 - Type 1 diabetes mellitus with ketoacidosis with coma (2) Lower extremity pain Status: Chronic Qualifiers: Laterality: right Qualified Code(s): M79.604 - Pain in right leg (3) PAD (peripheral artery disease) Status: Chronic (4) Metabolic acidosis Status: Acute (5) Swelling of lower extremity Status: Acute (6) Anxiety and depression Status: Acute (7) DVT prophylaxis Status: Acute Core Measure Documentation - Palliative Care Palliative Care/ Comfort Measures: Not Applicable - Core Measures Any of the following diagnoses?: none Exam - Constitutional Vitals: Temp Pulse Resp BP Pulse Ox 98.2 F 94 H 18 151/87 95 07/23/20 10:27 07/23/20 10:37 07/23/20 10:27 07/23/20 10:37 07/23/20 10:27 General appearance: Present: no acute distress, well-nourished - EENT Eyes: Present: PERRL ENT: hearing intact, clear oral mucosa - Neck Neck: Present: supple, normal ROM - Respiratory Respiratory effort: normal Respiratory: bilateral: CTA - Cardiovascular Heart Sounds: Present: S1 & S2. Absent: rub, click - Extremities Extremities: pulses symmetrical, No edema Peripheral Pulses: within normal limits - Abdominal General gastrointestinal: Present: soft, non-tender, non-distended, normal bowel sounds Male genitourinary: Present: normal - Integumentary Integumentary: Present: clear, warm, dry - Musculoskeletal Musculoskeletal: gait normal, strength equal bilaterally - Psychiatric Psychiatric: appropriate mood/affect, intact judgment & insight - Neurologic Neurologic: CNII-XII intact, moves all extremities Plan Diet: low fat, low cholesterol, diabetic Additional Instructions: Continue psych medications. Follow up with primary medical doctor in 7-14 days. Continue insulin as prescribed Follow up with: PRIMARY CARE, [Primary Care Provider] - 7 Days Prescriptions: Insulin Glargine [Lantus VIAL] 16 units SUB-Q QHS #2 vial AtorvaSTATin [Lipitor] 40 mg PO QHS #30 tablet Melatonin [Melatonin 5MG TAB] 5 mg PO QHS PRN #30 tablet PRN Reason: Sleep amLODIPine 10 mg PO QDAY #[address] [DepaKOTE DR] 125 mg PO BID #60 tablet Folic Acid [Folvite] 1 mg PO QDAY #30 tablet Gabapentin 300 mg PO TID #90 capsule Gabapentin 300 mg PO TID #90 capsule Aspirin EC [Halfprin EC] 81 mg PO QDAY #30 tablet Metoprolol [Lopressor TAB] 25 mg PO BID #60 tablet Pantoprazole [Protonix TAB] 40 mg PO QDAY #30 tablet QUEtiapine [SEROquel] 100 mg PO BID #60 tab
== END 2020-07-23 18:30 | disposition home or self-care (01) | DRG 917 ==
LOC: ED 21:33 → CC1 07-20 04:39 → 3A 07-20 13:26
PROVIDERS: ADMIT Internal Medicine; ATTEND Internal Medicine
DX: T38.3X1A Poisoning by insulin and oral hypoglycemic [antidiabetic] drugs, accidental (unintentional), initial encounter (principal); G93.41 Metabolic encephalopathy; E10.11 Type 1 diabetes mellitus with ketoacidosis with coma; N17.9 Acute kidney failure, unspecified; K21.9 Gastro-esophageal reflux disease without esophagitis; I73.9 Peripheral vascular disease, unspecified; E10.40 Type 1 diabetes mellitus with diabetic neuropathy, unspecified; F41.9 Anxiety disorder, unspecified; F32.9 Major depressive disorder, single episode, unspecified; Z79.4 Long term (current) use of insulin; Z79.84 Long term (current) use of oral hypoglycemic drugs; Z88.8 Allergy status to other drugs, medicaments and biological substances; Z79.899 Other long term (current) drug therapy; Z79.891 Long term (current) use of opiate analgesic; Z79.82 Long term (current) use of aspirin; Z79.01 Long term (current) use of anticoagulants; Y92.098 Other place in other non-institutional residence as the place of occurrence of the external cause
CPT/HCPCS: 36415; 80048; 80053; 80320; 82140; 82805; 82947; 82962; 85027; 93925; 96361; 96374; 96376; G0378; A9270-GY; G0480; J1644; J1815; J1940; J2060; J7030

== ENCOUNTER 2020-08-13 21:20 | Emergency (ER) | payer MEDICAID ==
[2020-08-14] MEDS ORDERED: diphenhydrAMINE 50 MG/ML VIAL IV ONE (01:15)
[2020-08-14] MEDS ORDERED: METOCLOPRAMIDE 10 MG/2 ML INJ IV ONE (01:15)
[2020-08-14] MEDS ORDERED: dexAMETHasone 20 MG/5 ML VIAL IV ONE (01:15)
[2020-08-14] MEDS ORDERED: FAMOTIDINE 20 MG/2 ML INJ IV ONE (01:15)
[2020-08-14] MEDS ORDERED: ACETAMINOPHEN 500 MG TAB PO ONE (01:16)
[2020-08-14] MEDS ORDERED: SODIUM CHLORIDE 0.9% 1000 ML 1,000 ML IV ONE ×2 (01:17→02:45)
[2020-08-14 01:42] LABS: Bilirubin,Urine NEG (Negative); Blood,Urine NEG (Negative); Color,Urine Yellow (Yellow); RBC,Urine < 1.0 /HPF (0.0-6.0); Urobilinogen,Urine < 2.0 mg/dL (<2.0); WBC,Urine < 1.0 /HPF (0.0-6.0)
[2020-08-14 02:05] LABS: Basophils % (Auto) 0.4 % (0.0-1.8); Eosinophils # (Auto) 0.1 K/mm3 (0.0-0.4); Eosinophils % (Auto) 1.1 % (0.0-4.3); Hematocrit 34.1 % (35.5-45.6); Hemoglobin 11.6 gm/dl (11.8-15.2); Lymphocytes # (Auto) 1.3 K/mm3 (1.2-5.4); Lymphocytes % (Auto) 22.4 % (13.4-35.0); Mean Corpuscular HGB Conc 34 % (32-34); Mean Corpuscular Volume 94 fl (84-94); Monocytes # (Auto) 0.4 K/mm3 (0.0-0.8); Monocytes % (Auto) 7.8 % (0.0-7.3); Platelet Count 198 K/mm3 (140-440); Red Blood Count 3.64 M/mm3 (3.65-5.03); Red Cell Distribution Width 12.9 % (13.2-15.2)
--- NOTE | 2020-08-14 02:21 | Cat Scan Report ---
CT head/brain wo con INDICATION: Headache. TECHNIQUE: All CT scans at this location are performed using CT dose reduction for ALARA by means of automated e xposure control. COMPARISON: 01/04/2020 FINDINGS: Retention cyst in the left maxilla. Paranasal and mastoid sinuses are otherwise clear. Right temporal encephalomalacia, consistent with old infarction, unchanged. There is also focal infar ction involving the left periventricular white matter, is not acute but was not present in December. No mass, hemorrhage or other acute abnormality. IMPRESSION: 1. No acute abnormalities. Signer Name: Martin Garcia MD Signed: 08/14/2020 2:17 AM Workstation Name: [id number]
[2020-08-14 02:24] LABS: Albumin 3.4 g/dL (3.9-5); Calcium 8.6 mg/dL (8.4-10.2)
--- NOTE | 2020-08-14 02:25 | XRay Report ---
CHEST 1 VIEW INDICATION: back pain COMPARISON: 06/21/2019 FINDINGS: Support devices: None Heart: Normal and unchanged Lungs/Pleura: No acute pulmonary or pleural findings. IMPRESSION: 1. No acute disease and no interval change. Signer Name: Martin Garcia MD Signed: 08/14/2020 2:20 AM Workstation Name: [id number]
[2020-08-14] MEDS ORDERED: INSULIN REGULAR, HUMAN 100 UNIT/ML 3ML VIAL IV ONE (02:45)
--- NOTE | 2020-08-14 02:57 | Emergency Department Report ---
ED Headache HPI - General Chief Complaint: Headache Stated Complaint: HEADACHE Source: patient Exam Limitations: no limitations - History of Present Illness Initial Comments: Patient is a 55-year-old white male with a history of awa-gwdwdfv-uqsujflrg diabetes, hypertension, chronic cervical and lumbar disc disease, anxiety and depression, chronic alcohol abuse, chronic pancreatitis, bipolar disorder, PTSD who presents to the ED with complaint of persistent headache for the last 2 months. Patient also complains of worsening low back and neck pain as well as generalized weakness for the last 2 weeks, worse in the last 2 days. Patient denies dizziness, chest pain, shortness of breath, fever, chills, cough, abdominal pain, nausea and vomiting or diarrhea, seizures, syncope, palpitations or dysuria, urinary frequency and urgency and testicular pain. Timing/Duration: constant, waxing and waning, other (2 months) Quality: severe, pressure, sharp, throbbing Head Injury Location: frontal Recent Head Trauma: no recent headache/trauma Modifying Factors: improves with: other (chronic back pain) Associated Symptoms: denies symptoms. denies: confusion, fatigue, facial pain, fever/chills, flushing, loss of consciousness, nausea/vomiting, nasal con gestion, nasal drainage, numbness in legs/feet, seizures, sinus infection, stiff neck, vision changes, weakness Allergies/Adverse Reactions: Allergies ketorolac [From Toradol] Allergy (Verified 07/19/20 23:29) Unknown Home Medications: Ambulatory Orders Lipase/Protease/Amylase [Kalyan Wang 12,000 Units] 5 each PO AC capsule 03/27/20 Thiamine [Vitamin B-1] 100 mg PO QDAY tablet 03/27/20 Venlafaxine Xr [Effexor XR] 150 mg PO QDAY #30 capsule 03/27/20 traZODone [Desyrel] 50 mg PO QHS #30 tablet 03/27/20 Aspirin EC [Halfprin EC] 81 mg PO QDAY #30 tablet 07/23/20 AtorvaSTATin [Lipitor] 40 mg PO QHS #30 tablet 07/23/20 Divalproex [Karan WANG] 125 mg PO BID #60 tablet 07/23/20 Divalproex [Karan Wang] 125 mg PO BID tablet 07/23/20 Folic Acid [Folvite] 1 mg PO QDAY #30 tablet 07/23/20 Gabapentin 300 mg PO TID #90 capsule 07/23/20 Insulin Glargine [Lantus VIAL] 16 units SUB-Q QHS #2 vial 07/23/20 Lispro Insulin [HumaLOG] 4 unit SQ ACHS #10 ml 07/23/20 Melatonin [Melatonin 5MG TAB] 5 mg PO QHS PRN #30 tablet 07/23/20 Metoprolol [Lopressor TAB] 25 mg PO BID #60 tablet 07/23/20 Pantoprazole [Protonix TAB] 40 mg PO QDAY #30 tablet 07/23/20 QUEtiapine [SEROquel] 100 mg PO BID #60 tab 07/23/20 amLODIPine 10 mg PO QDAY #30 tablet 07/23/20 Butalb/Acetamin/Caff 50-325-40 [Fioricet 50-325-40] 1 - 2 tab PO Q6HR PRN #12 tab 08/14/20 Gabapentin 300 mg PO QHS #30 capsule 08/14/20 Ibuprofen [Motrin] 600 mg PO Q8H PRN #24 tablet 08/14/20 Ondansetron [Zofran Odt] 4 mg PO Q6HR PRN #15 tab.rapdis 08/14/20 ED Review of Systems ROS: Stated complaint: HEADACHE Other details as noted in HPI Constitutional: denies: chills, fever Eyes: denies: eye pain, eye discharge, vision change ENT: denies: ear pain, throat pain Respiratory: denies: cough, shortness of breath, wheezing Cardiovascular: denies: chest pain, palpitations Endocrine: no symptoms reported Gastrointestinal: denies: abdominal pain, nausea, vomiting, diarrhea Genitourinary: denies: urgency, dysuria Musculoskeletal: back pain (mid back pain; low back pain), arthralgia (back pain), myalgia. denies: joint swelling Skin: denies: rash, lesions Neurological: headache. denies: weakness, paresthesias Psychiatric: denies: anxiety, depression Hematological/Lymphatic: denies: easy bleeding, easy bruising ED Past Medical Hx - Past Medical History Previous Medical History?: Yes Hx Hypertension: Yes Hx Congestive Heart Failure: No Hx Diabetes: Yes Hx Renal Disease: No Hx Arthritis: No Hx Seizures: No Hx Psychiatric Treatment: Yes (bipolar, PTSD, anxiety, ETOH abuse) Hx Asthma: No Hx COPD: No Hx Dementia: No Hx HIV: No Additional medical history: PAD, Pancreatitis, Neuropathy. DDD - Surgical History Past Surgical History?: Yes Hx Cholecystectomy: No Hx Appendectomy: No Additional Surgical History: Bilateral Inguinal Repair., left partial foot amputee. pancreatic - Social History Smoking Status: Current Every Day Smoker - Medications Home Medications: Home Medications Medication Instructions Recorded Confirmed Last Taken Type Lipase/Protease/Amylase [Kalyan Wang 5 each PO AC capsule 03/27/20 07/20/20 Unknown Rx 12,000 Units] Thiamine [Vitamin B-1] 100 mg PO QDAY tablet 03/27/20 07/20/20 Unknown Rx Venlafaxine Xr [Effexor XR] 150 mg PO QDAY #30 capsule 03/27/20 07/20/20 Unknown Rx traZODone [Desyrel] 50 mg PO QHS #30 tablet 03/27/20 07/20/20 Unknown Rx Aspirin EC [Halfprin EC] 81 mg PO QDAY #30 tablet 07/23/20 Unknown Rx AtorvaSTATin [Lipitor] 40 mg PO QHS #30 tablet 07/23/20 Unknown Rx Divalproex [Karan WANG] 125 mg PO BID #60 tablet 07/23/20 Unknown Rx Divalproex [Karan Wang] 125 mg PO BID tablet 07/23/20 Unknown Rx Folic Acid [Folvite] 1 mg PO QDAY #30 tablet 07/23/20 Unknown Rx Gabapentin 300 mg PO TID #90 capsule 07/23/20 Unknown Rx Insulin Glargine [Lantus VIAL] 16 units SUB-Q QHS #2 vial 07/23/20 Unknown Rx Lispro Insulin [HumaLOG] 4 unit SQ ACHS #10 ml 07/23/20 Unknown Rx Melatonin [Melatonin 5MG TAB] 5 mg PO QHS PRN #30 tablet 07/23/20 Unknown Rx Metoprolol [Lopressor TAB] 25 mg PO BID #60 tablet 07/23/20 Unknown Rx Pantoprazole [Protonix TAB] 40 mg PO QDAY #30 tablet 07/23/20 Unknown Rx QUEtiapine [SEROquel] 100 mg PO BID #60 tab 07/23/20 Unknown Rx amLODIPine 10 mg PO QDAY #30 tablet 07/23/20 Unknown Rx Butalb/Acetamin/Caff 50-325-40 1 - 2 tab PO Q6HR PRN #12 tab 08/14/20 Unknown Rx [Fioricet 50-325-40] Gabapentin 300 mg PO QHS #30 capsule 08/14/20 Unknown Rx Ibuprofen [Motrin] 600 mg PO Q8H PRN #24 tablet 08/14/20 Unknown Rx Ondansetron [Zofran Odt] 4 mg PO Q6HR PRN #15 tab.rapdis 08/14/20 Unknown Rx ED Physical Exam - General Limitations: No Limitations General appearance: alert, in no apparent distress - Head Head exam: Present: atraumatic, normocephalic, normal inspection - Eye Eye exam: Present: normal appearance, PERRL, EOMI Pupils: Present: normal accommodation - ENT ENT exam: Present: normal exam, normal orophraynx, mucous membranes moist, TM's normal bilaterally, normal external ear exam - Neck Neck exam: Present: normal inspection, tenderness (Palpable cervical paraspinal musculoskeletal tenderness), full ROM - Respiratory Respiratory exam: Present: normal lung sounds bilaterally. Absent: respiratory distress, wheezes, rales, rhonchi, chest wall tenderness, accessory muscle use, decreased breath sounds, prolonged expiratory - Cardiovascular Cardiovascular Exam: Present: normal rhythm, tachycardia, normal heart sounds. Absent: systolic murmur, diastolic murmur, rubs, gallop - GI/Abdominal GI/Abdominal exam: Present: soft, normal bowel sounds. Absent: tenderness, guarding, hyperactive bowel sounds, hypoactive bowel sounds, organomegaly - Extremities Exam Extremities exam: Present: normal inspection, full ROM, normal capillary refill. Absent: tenderness - Back Exam Back exam: Present: normal inspection, full ROM, tenderness (Palpable mid posterior thoracic and lumbosacral paraspinal musculoskeletal tenderness), muscle spasm, paraspinal tenderness - Neurological Exam Neurological exam: Present: alert, oriented X3, CN II-XII intact, normal gait, reflexes normal - Psychiatric Psychiatric exam: Present: normal affect, normal mood - Skin Skin exam: Present: warm, dry, intact, normal color. Absent: rash ED Course Vital Signs 08/13/20 23:02 Temperature 98.3 F Pulse Rate 111 H Respiratory 18 Rate Blood Pressure 100/53 O2 Sat by Pulse 99 Oximetry ED Medical Decision Making - Lab Data Result diagrams: 08/14/20 01:44 08/14/20 01:44 - Radiology Data Radiology results: report reviewed, image reviewed Findings [address] [address] Cat Scan Report Signed Patient: NAVEED FELICIANO JR MR#: [id number] : 1965 Acct:[id number] Age/Sex: 55 / M ADM Date: 08/13/20 Loc: ED Attending Dr: Ordering Physician: AYE BRADY Date of Service: 08/14/20 Procedure(s): CT head/brain wo con Accession Number(s): [id number] cc: AYE BRADY CT head/brain wo con INDICATION: Headache. TECHNIQUE: All CT scans at this location are performed using CT dose reduction for ALARA by means of automated exposure control. COMPARISON: 01/04/2020 FINDINGS: Retention cyst in the left maxilla. Paranasal and mastoid sinuses are otherwise clear. Right temporal encephalomalacia, consistent with old infarction, unchanged. There is also focal infarction involving the left periventricular white matter, is not acute but was not present in December. No mass, hemorrhage or other acute abnormality. IMPRESSION: 1. No acute abnormalities. Signer Name: Martin Garcia MD Signed: 08/14/2020 2:17 AM Workstation Name: [id number] Transcribed By: TM Dictated By: Martin Garcai MD Electronically Authenticated By: Martin Garcia MD Signed Date/Time: 08/14/20216 DD/ 2 TD/TT: Findings [address] [address] XRay Report Signed Patient: NAVEED FELICIANO JR MR#: [id number] : 1965 Acct:[id number] Age/Sex: 55 / M ADM Date: 08/13/20 Loc: ED Attending Dr: Ordering Physician: AYE BRADY Date of Service: 08/14/20 Procedure(s): XR chest routine 2V Accession Number(s): [id number] cc: AYE BRADY Fluoro Time In Minutes: CHEST 1 VIEW INDICATION: back pain COMPARISON: 06/21/2019 FINDINGS: Support devices: None Heart: Normal and unchanged Lungs/Pleura: No acute pulmonary or pleural findings. IMPRESSION: 1. No acute disease and no interval change. Signer Name: Martin Garcia MD Signed: 08/14/2020 2:20 AM Workstation Name: [id number] Transcribed By: TM Dictated By: Martin Garcia MD Electronically Authenticated By: Martin Garcia MD Signed Date/Time: 08/14/20219 DD/ 9 TD/TT: - Medical Decision Making This is a 55-year-old white male with a history of ihs-uffwgkf-oyybopvws diabetes, hypertension, chronic cervical and lumbar disc disease, anxiety and depression, chronic alcohol abuse, chronic pancreatitis, bipolar disorder, PTSD who presents to the ED with complaint of persistent headache for the last 2 months. Patient also complains of worsening low back and neck pain as well as generalized weakness for the last 2 weeks, worse in the last 2 days. In the ED, patient is alert and oriented x3 and is not in distress. Lab test results were reviewed and showed acute hyponatremia of 131 mmol/L, acute hypochloremia of 94.2 mmol/L, BUN of 28, creatinine 1.8, and hyperglycemia 570 mg/dL. The rest of the lab test results were nonactionable. Chest x-ray shows no acute cardiopulmonary abnormalities or pneumonitis. The head CT scan without contrast also showed no acute intracranial abnormalities or hemorrhage. Patient was treated in the ED for pain, also treated with normal saline IV bolus, antiemetics, insulin and antacids. On reevaluation, patient felt better, headache resolved and tgfzn-[id number] glucose was 2 six 1 mg/dL after treatment. Patient will discharge home on medications and advised to follow-up with his primary care physician and 3 to 5 days for reevaluation or return to the ED immediately if symptoms get worse. - Differential Diagnosis Hyperglycemia; Chronic pain; muscle spasm; Tension headache Critical care attestation.: If time is entered above; I have spent that time in minutes in the direct care of this critically ill patient, excluding procedure time. ED Disposition Clinical Impression: Chronic pain syndrome Hyperglycemia due to type 2 diabetes mellitus Qualifiers: Diabetes mellitus half-way insulin use: without half-way use Qualified Code(s): E11.65 - Type 2 diabetes mellitus with hyperglycemia Tension type headache Qualifiers: Headache chronicity pattern: acute headache Intractability: not intractable Qualified Code(s): G44.209 - Tension-type headache, unspecified, not intractable Disposition: DC- TO HOME OR SELFCARE Is pt being admited?: No Does the pt Need Aspirin: No Condition: Stable Instructions: Chronic Pain (ED), Diabetes Mellitus Type 2 in Adults (ED), Muscle Spasm (ED) Additional Instructions: Take medication with food, drink plenty of fluids and follow-up with your primary care physician in 5 to 7 days for reevaluation. Return to the ED immediately if symptoms get worse. Prescriptions: Gabapentin 300 mg PO QHS #30 capsule Butalb/Acetamin/Caff 50-325-40 [Fioricet 50-325-40] 1 - 2 tab PO Q6HR PRN #12 tab PRN Reason: Headache Ibuprofen [Motrin] 600 mg PO Q8H PRN #24 tablet PRN Reason: Pain Ondansetron [Zofran Odt] 4 mg PO Q6HR PRN #15 tab.rapdis PRN Reason: Nausea Referrals: [facility] [Provider Group] - 7-10 days Time of Disposition: 03:04 Print Language: NAMIBIAN
[2020-08-14] MEDS ORDERED: INSULIN REGULAR, HUMAN 100 UNITS/1 ML ONE (03:29)
[2020-08-14 06:03] VITALS: BP 115/78
== END 2020-08-14 05:50 | disposition home or self-care (01) ==
LOC: ED 21:20
DX: E11.65 Type 2 diabetes mellitus with hyperglycemia (principal); G44.209 Tension-type headache, unspecified, not intractable; G89.4 Chronic pain syndrome; I10 Essential (primary) hypertension; F31.9 Bipolar disorder, unspecified; F41.9 Anxiety disorder, unspecified; F17.200 Nicotine dependence, unspecified, uncomplicated; Z98.890 Other specified postprocedural states; Z79.899 Other long term (current) drug therapy; Z88.8 Allergy status to other drugs, medicaments and biological substances
CPT/HCPCS: 36415; 70450; 71046; 80053; 81001; 82962; 85025; 96361; 96374; 96375; 99285; J1100; J1200; J2765; J7030; J1815

== ENCOUNTER 2020-08-14 18:31 | Emergency (ER) | payer MEDICAID ==
[2020-08-14 19:03] VITALS: BP 125/88
--- NOTE | 2020-08-14 19:37 | XRay Report ---
RIGHT SHOULDER 2 VIEW(S) INDICATION / CLINICAL INFORMATION: fall, right shoulder pain COMPARISON: None available. FINDINGS: BONES / JOINT(S): Acute mildly displaced fracture involving surgical neck right proximal humerus. No significant arthritis. SOFT TISSUES: No significant abnormality. ADDITIONAL FINDINGS: None. Signer Name: Hi Davis MD Signed: 08/14/2020 7:32 PM Workstation Name: [id number]
[2020-08-14] MEDS ORDERED: ACETAMINOPHEN W/CODEINE 300-30 MG TAB PO ONE (20:22)
--- NOTE | 2020-08-14 20:27 | Emergency Department Report ---
ED Fall HPI - General Chief Complaint: Fall Stated Complaint: RT ARM PAIN Time Seen by Provider: 08/14/20 19:47 Source: patient Mode of arrival: Ambulatory - History of Present Illness Initial Comments: Patient is a 55-year-old male who presents emergency room with complaints of a right arm injury that occurred today. Patient states that he was in the bathroom and that the children had been in the shower. He states that there was water all over the floor and that he accidentally slipped and fell. He states that he landed between the toilet and the vanity. He states that he felt a popping sensation in his right arm. He denies any loss of consciousness, vomiting, vision changes, numbness, weakness, bowel or bladder incontinence, hitting his head, any other injury. He has an allergy to ketorolac. He denies ever injuring this arm in the past. - Related Data Previous Rx's Medication Instructions Recorded Last Taken Type Lipase/Protease/Amylase [Kalyan Wang 5 each PO AC capsule 03/27/20 Unknown Rx 12,000 Units] Thiamine [Vitamin B-1] 100 mg PO QDAY tablet 03/27/20 Unknown Rx Venlafaxine Xr [Effexor XR] 150 mg PO QDAY #30 capsule 03/27/20 Unknown Rx traZODone [Desyrel] 50 mg PO QHS #30 tablet 03/27/20 Unknown Rx Aspirin EC [Halfprin EC] 81 mg PO QDAY #30 tablet 07/23/20 Unknown Rx AtorvaSTATin [Lipitor] 40 mg PO QHS #30 tablet 07/23/20 Unknown Rx Divalproex [Karan WANG] 125 mg PO BID #60 tablet 07/23/20 Unknown Rx Divalproex [Karan Wang] 125 mg PO BID tablet 07/23/20 Unknown Rx Folic Acid [Folvite] 1 mg PO QDAY #30 tablet 07/23/20 Unknown Rx Gabapentin 300 mg PO TID #90 capsule 07/23/20 Unknown Rx Insulin Glargine [Lantus VIAL] 16 units SUB-Q QHS #2 vial 07/23/20 Unknown Rx Lispro Insulin [HumaLOG] 4 unit SQ ACHS #10 ml 07/23/20 Unknown Rx Melatonin [Melatonin 5MG TAB] 5 mg PO QHS PRN #30 tablet 07/23/20 Unknown Rx Metoprolol [Lopressor TAB] 25 mg PO BID #60 tablet 07/23/20 Unknown Rx Pantoprazole [Protonix TAB] 40 mg PO QDAY #30 tablet 07/23/20 Unknown Rx QUEtiapine [SEROquel] 100 mg PO BID #60 tab 07/23/20 Unknown Rx amLODIPine 10 mg PO QDAY #30 tablet 07/23/20 Unknown Rx Acetaminophen [Tylenol] 650 mg PO Q8HR PRN #20 capsule 08/14/20 Unknown Rx Butalb/Acetamin/Caff 50-325-40 1 - 2 tab PO Q6HR PRN #12 tab 08/14/20 Unknown Rx [Fioricet 50-325-40] Gabapentin 300 mg PO QHS #30 capsule 08/14/20 Unknown Rx Ibuprofen [Motrin] 600 mg PO Q8H PRN #24 tablet 08/14/20 Unknown Rx Ondansetron [Zofran Odt] 4 mg PO Q6HR PRN #15 tab.rapdis 08/14/20 Unknown Rx Allergies Allergy/AdvReac Type Severity Reaction Status Date / Time ketorolac [From Toradol] Allergy Unknown Verified 07/19/20 23:29 ED Review of Systems ROS: Stated complaint: RT ARM PAIN Other details as noted in HPI Comment: All other systems reviewed and negative ED Past Medical Hx - Past Medical History Hx Hypertension: Yes Hx Congestive Heart Failure: No Hx Diabetes: Yes Hx Renal Disease: No Hx Arthritis: No Hx Seizures: No Hx Psychiatric Treatment: Yes (bipolar, PTSD, anxiety, ETOH abuse) Hx Asthma: No Hx COPD: No Hx Dementia: No Hx HIV: No Additional medical history: PAD, Pancreatitis, Neuropathy. DDD - Surgical History Hx Cholecystectomy: No Hx Appendectomy: No Additional Surgical History: Bilateral Inguinal Repair., left partial foot amputee. pancreatic - Social History Smoking Status: Current Some Day Smoker Substance Use Type: Alcohol - Medications Home Medications: Home Medications Medication Instructions Recorded Confirmed Last Taken Type Lipase/Protease/Amylase [Kalyan Wang 5 each PO AC capsule 03/27/20 07/20/20 Unknown Rx 12,000 Units] Thiamine [Vitamin B-1] 100 mg PO QDAY tablet 03/27/20 07/20/20 Unknown Rx Venlafaxine Xr [Effexor XR] 150 mg PO QDAY #30 capsule 03/27/20 07/20/20 Unknown Rx traZODone [Desyrel] 50 mg PO QHS #30 tablet 03/27/20 07/20/20 Unknown Rx Aspirin EC [Halfprin EC] 81 mg PO QDAY #30 tablet 07/23/20 Unknown Rx AtorvaSTATin [Lipitor] 40 mg PO QHS #30 tablet 07/23/[address] [Karan DR] 125 mg PO BID #60 tablet 07/23/[address] [Karan Dr] 125 mg PO BID tablet 07/23/20 Unknown Rx Folic Acid [Folvite] 1 mg PO QDAY #30 tablet 07/23/20 Unknown Rx Gabapentin 300 mg PO TID #90 capsule 07/23/20 Unknown Rx Insulin Glargine [Lantus VIAL] 16 units SUB-Q QHS #2 vial 07/23/20 Unknown Rx Lispro Insulin [HumaLOG] 4 unit SQ ACHS #10 ml 07/23/20 Unknown Rx Melatonin [Melatonin 5MG TAB] 5 mg PO QHS PRN #30 tablet 07/23/20 Unknown Rx Metoprolol [Lopressor TAB] 25 mg PO BID #60 tablet 07/23/20 Unknown Rx Pantoprazole [Protonix TAB] 40 mg PO QDAY #30 tablet 07/23/20 Unknown Rx QUEtiapine [SEROquel] 100 mg PO BID #60 tab 07/23/20 Unknown Rx amLODIPine 10 mg PO QDAY #30 tablet 07/23/20 Unknown Rx Acetaminophen [Tylenol] 650 mg PO Q8HR PRN #20 capsule 08/14/20 Unknown Rx Butalb/Acetamin/Caff 50-325-40 1 - 2 tab PO Q6HR PRN #12 tab 08/14/20 Unknown Rx [Fioricet 50-325-40] Gabapentin 300 mg PO QHS #30 capsule 08/14/20 Unknown Rx Ibuprofen [Motrin] 600 mg PO Q8H PRN #24 tablet 08/14/20 Unknown Rx Ondansetron [Zofran Odt] 4 mg PO Q6HR PRN #15 tab.rapdis 08/14/20 Unknown Rx ED Physical Exam - General Limitations: No Limitations General appearance: alert, in no apparent distress - Head Head exam: Present: atraumatic, normocephalic - Eye Eye exam: Present: normal appearance - ENT ENT exam: Present: mucous membranes moist - Respiratory Respiratory exam: Absent: respiratory distress, accessory muscle use - Extremities Exam Extremities exam: Present: other (ttp to the right humerus, no obvious deformity, no clavicular ttp bilaterally, decreased ROM of the right upper arm secondary to pain, no ttp to the right fingers, hand, wrist, forearm, or elbow, neurovascularly intact) - Neurological Exam Neurological exam: Present: alert, oriented X3 - Psychiatric Psychiatric exam: Present: normal affect, normal mood - Skin Skin exam: Present: warm, dry, intact ED Course Vital Signs 08/14/20 08/14/20 08/14/20 19:01 20:37 20:51 Temperature 97.8 F Pulse Rate 111 H 96 H Respiratory 16 20 17 Rate Blood Pressure 125/88 [Left] O2 Sat by Pulse 100 100 Oximetry ED Medical Decision Making - Radiology Data Radiology results: report reviewed RIGHT SHOULDER 2 VIEW(S) INDICATION / CLINICAL INFORMATION: fall, right shoulder pain COMPARISON: None available. FINDINGS: BONES / JOINT(S): Acute mildly displaced fracture involving surgical neck right proximal humerus. No significant arthritis. SOFT TISSUES: No significant abnormality. ADDITIONAL FINDINGS: None. Signer Name: Hi Davis MD Signed: 08/14/2020 7:32 PM Workstation Name: [id number] Transcribed By: TL Dictated By: Hi Davis MD Electronically Authenticated By: Hi Davis MD Signed Date/Time: 08/14/201931 DD/ 31 TD/TT: - Medical Decision Making Patient is a 55-year-old male who presents emergency room with complaints of a right arm injury that occurred today. Patient states that he was in the bathroom and that the children had been in the shower. He states that there was water all over the floor and that he accidentally slipped and fell. He states that he landed between the toilet and the vanity. He states that he felt a popping sensation in his right arm. He denies any loss of consciousness, vomiting, vision changes, numbness, weakness, bowel or bladder incontinence, hitting his head, any other injury. He has an allergy to ketorolac. He denies ever injuring this arm in the past. initial vitals with elevated HR which improved upon repeat. on exam: ttp to the right humerus, no obvious deformity, no clavicular ttp bilaterally, decreased ROM of the right upper arm secondary to pain, no ttp to the right fingers, hand, wrist, forearm, or elbow, neurovascularly intact. XR right shoulder: BONES / JOINT(S): Acute mildly displaced fracture involving surgical neck right proximal humerus. No significant arthritis. SOFT TISSUES: No significant abnormality. ADDITIONAL FINDINGS: None. pt given pain medication while in the ED as he did not drive and symptoms improved. discussed all results with pt and answered questions.pt placed in shoulder immobilizer by nurse and remained neurovasculalry intact. pt given prescription for tylenol. advised pt Please take medication as prescribed as needed. Please do not remove shoulder immobilizer. Please follow-up with a orthopedic doctor. It is very important that you follow-up. Return to emergency room for any new or worsening symptoms. - Differential Diagnosis strain, sprain, fx, dislocation, contusion Critical care attestation.: If time is entered above; I have spent that time in minutes in the direct care of this critically ill patient, excluding procedure time. ED Disposition Clinical Impression: Right humeral fracture Qualifiers: Encounter type: initial encounter Humerus Location: surgical neck Fracture type: closed Fracture morphology: unspecified fracture morphology Fracture alignment: nondisplaced Qualified Code(s): S42.214A - Unspecified nondisplaced fracture of surgical neck of right humerus, initial encounter for closed fracture Disposition: DC- TO HOME OR SELFCARE Is pt being admited?: No Does the pt Need Aspirin: No Condition: Stable Instructions: Arm Fracture in Adults (ED) Additional Instructions: Please take medication as prescribed as needed. Please do not remove shoulder immobilizer. Please follow-up with a orthopedic doctor. It is very important that you follow-up. Return to emergency room for any new or worsening symptoms. Prescriptions: Acetaminophen [Tylenol] 650 mg PO Q8HR PRN #20 capsule PRN Reason: pain Referrals: HELENA BENNETT MD [Primary Care Provider] - 2-3 Days CAITLYN QUINN MD [Staff Physician] - 2-3 Days [facility]Provider [facility]] - 2-3 Days Time of Disposition: 20:26 Print Language: TURKISH
== END 2020-08-14 20:51 | disposition home or self-care (01) ==
LOC: ED 18:31
DX: S42.214A Unspecified nondisplaced fracture of surgical neck of right humerus, initial encounter for closed fracture (principal); I10 Essential (primary) hypertension; E11.40 Type 2 diabetes mellitus with diabetic neuropathy, unspecified; F43.11 Post-traumatic stress disorder, acute; F31.9 Bipolar disorder, unspecified; F17.200 Nicotine dependence, unspecified, uncomplicated; Z98.890 Other specified postprocedural states; Z79.899 Other long term (current) drug therapy; Z88.6 Allergy status to analgesic agent; W01.0XXA Fall on same level from slipping, tripping and stumbling without subsequent striking against object, initial encounter; Y93.89 Activity, other specified; Y92.89 Other specified places as the place of occurrence of the external cause; Y99.8 Other external cause status
CPT/HCPCS: 99283

== ENCOUNTER 2020-08-19 14:51 | Emergency (ER) | payer MEDICAID ==
[2020-08-19 15:20] VITALS: BP 104/80
== END 2020-08-19 19:00 ==
LOC: ED 14:51
DX: M25.511 Pain in right shoulder (principal); Z53.21 Procedure and treatment not carried out due to patient leaving prior to being seen by health care provider